=== PATIENT | female | born 1990 | race Caucasian/White ===

== ENCOUNTER 2020-03-30 05:50 | Inpatient (IN) | payer MEDICAID, SELFPAY ==
[2020-03-30] VITALS (139 sets, daily range): BP systolic 91–125; BP diastolic 53–90; PULSE 86–115; RESP 16; TEMP 36.6–37.4; O2SAT 99–100; BMI 25.6
[2020-03-30 06:40] LABS: Basophils Absolute Auto 0.1 K/mm3 (0.0-0.1); Basophils Percent Auto 0.5 % (0.2-1.2); Eosinophils Absolute Auto 0.2 K/mm3 (0-0.3); Eosinophils Percent Auto 1.8 % (0-4.4); Hematocrit 26.3 % (37.0-47.0); Hemoglobin 8.2 g/dL (12.0-15.0); Immature Granulocyte Absolute 0.05 K/mm3 (0.00-0.031); Immature Granulocyte Percent A 0.5 % (0-0.5); Lymphocytes Absolute Auto 1.93 K/mm3 (0.9-3.2); Lymphocytes Percent Auto 20.8 % (18.3-44.2); Mean Corpuscular HGB Conc 31.2 g/dl (32-36); Mean Corpuscular Hemoglobin 24.9 pg (26-34); Mean Corpuscular Volume 79.9 fl (80-100); Mean Platelet Volume 11.8 fl (7.4-10.4); Monocytes Absolute Auto 0.7 K/mm3 (0.1-0.6); Monocytes Percent Auto 7.8 % (2.6-8.5); Neutrophils Absolute Auto 6.4 K/mm3 (1.3-6.7); Neutrophils Percent Auto 68.6 % (45.5-73.1); Nucleated Red Blood Cells Perc 0.2 % (0.0-0.2); Platelet Count Result 294 k/mm3 (150-375); Red Blood Count 3.29 M/mm3 (4.2-5.4); Red Cell Distribution Width 15.2 % (11.5-14.5); White Blood Count 9.3 K/mm3 (4.5-10.0)
[2020-03-30] MEDS: OXYTOCIN 30 UNITS/NS 500 ML 30 UNITS/500 ML BAG 125 UNITS IV CONT ×2 (07:02→20:30)
[2020-03-30] MEDS: LACTATED RINGERS 1,000 ML 125 ML IV CONT ×2 (07:03→11:13)
--- NOTE | 2020-03-30 07:18 | LDADM ---
This patient, Jacky Hwang, was admitted to Labor/Delivery/Recovery 107 on 03/30/20 at 05:50. Plans for labor, pain management and were discussed with patient. Patient/family oriented to hospital policies and general routines including ID bracelet, bed and alarms, visiting hours, pain management, procedures, bathroom and other care routines, personal items, smoking policy, room service/diet and guest tray routines, infant security routines, and visiting hours. Patient/Family are encouraged to report perceived risks to care and to ask questions if they do not understand what they are told or what they should do. See OBIX for further documentation.
--- NOTE | 2020-03-30 07:37 | WPDHPUPDATE1 ---
History and Physical Update Update Date/Time: 03/30/20 07:37 This patient is a 29-year-old multiparous female at 39 weeks gestation presents for elective induction of labor. Artificial rupture of membranes was performed. She is 2 cm, 50%, -2 station the -clear fluid was observed. To continue expectant management. History and Physical has been reviewed, including an updated exam of the patient. There are NO changes in the patient's condition. Risks, benefits, and alternatives have been discussed and questions answered. Patient agrees to proceed with procedure.
--- NOTE | 2020-03-30 08:06 | P.PNAN_ITS ---
Anes - Eval Pre Procedure Procedure: labor epidural Date/Time: 03/30/20 08:06 Preop Diagnosis: labor pain Pre Op Diagnosis: IOL Patient Data Age: 29 Gender: F Height: 5 ft 6 in Weight: 72 kg Last Vital Signs Pulse 98 03/30/20 08:00 BP 110/66 03/30/20 08:00 Allergies Allergy/AdvReac Type Severity Reaction Status Date / Time No Known Allergies Allergy Unverified 11/15/17 21:05 Home Medications Medication Instructions Recorded Confirmed Type PNV no.[id number] 2 tablet PO DAILY 03/05/20 03/30/20 History [ Gummies] Laboratory Tests 03/30/20 03/30/20 03/30/20 06:28 06:28 06:28 WBC 9.3 K/mm3 K/mm3 (4.5-10.0) RBC 3.29 M/mm3 L M/mm3 (4.2-5.4) Hgb 8.2 g/dL L g/dL (12.0-15.0) Hct 26.3 % L % (37.0-47.0) MCV 79.9 fl L fl (80-100) MCH 24.9 pg L pg (26-34) MCHC 31.2 g/dl L g/dl (32-36) RDW 15.2 % H % (11.5-14.5) Plt Count 294 k/mm3 k/mm3 (150-375) MPV 11.8 fl H fl (7.4-10.4) Immature Gran % (Auto) 0.5 % % (0-0.5) Neut % (Auto) 68.6 % % (45.5-73.1) Lymph % (Auto) 20.8 % % (18.3-44.2) Bourbon % (Auto) 7.8 % % (2.6-8.5) Eos % (Auto) 1.8 % % (0-4.4) Baso % (Auto) 0.5 % % (0.2-1.2) Lymph # (Auto) 1.93 K/mm3 K/mm3 (0.9-3.2) Bourbon # (Auto) 0.7 K/mm3 H K/mm3 (0.1-0.6) Eos # (Auto) 0.2 K/mm3 K/mm3 (0-0.3) Baso # (Auto) 0.1 K/mm3 K/mm3 (0.0-0.1) Abs Immat Gran (auto) 0.05 K/mm3 H K/mm3 (0.00-0.031) Absolute Neuts (auto) 6.4 K/mm3 K/mm3 (1.3-6.7) Absolute Nucleated RBC 0.0 K/mm3 K/mm3 (0.0-0.012) Nucleated RBC % 0.2 % % (0.0-0.2) RPR Pending Blood Type O Positive Antibody Screen Negative Patient hx anesthesia problems: none Family hx anesthesia problems: none [facility] Family History Family History (Updated 03/05/20 @ 15:54 by Tracy Small RN) Other Diabetes mellitus Social History Social History Smoking status: Never smoker Substance use: never Spiritual care concerns: No Exam Day of Procedure 03/30/20 08:06
--- NOTE | 2020-03-30 20:08 | PM.OBPRVD ---
OB - Delivery Note Procedure Intrapartal events: Ineffective Pushing Induction method: AROM and per pitocin protocol Delivery monitor: external FHT and external uterine Route of delivery: vacuum extraction (CARLOS A, +4 station, kiwi vacuum, estimated weight 3200 g,- ineffective pushing, 1 pop-off, 2 pulls over 2 contractions, total time less than 2 minutes.) Indication for instrumentation: maternal exhaustion Laceration description: Perineal - 2nd Degree Delivery repair: vicryl Estimated blood loss (mL): 300 Anesthesia type: Epidural Disposition: floor Complications: None Baby Date of : 03/30/20 Time of : 19:48 Weeks of gestation at delivery: 39 gender: Male Weight (pounds): 7 Weight (ounces): 8 presentation: vertex position: Left Occiput Anterior Placenta delivery description: Spontaneous score one minute: 7 score five minutes: 9
[2020-03-30] MEDS: WITCH HAZEL 40 PADS 1 PAD TOPICAL (22:19)
[2020-03-30] MEDS: BENZOCAINE 20% AER SPR (*SP) 56 GM CAN 1 SPRAY TOPICAL (22:19)
--- NOTE | 2020-03-30 22:34 | OBPPTRN ---
Patient transferred to post room #281 via wheelchair. Support person present. Oriented to unit, room, information board, rooming in, admission packet and security measures. Patient verbalizes understanding. with patient.
[2020-03-30] MEDS: IBUPROFEN 600 MG TABLET PO (23:43)
[2020-03-31 06:00] LABS: Hematocrit 22.6 % (37.0-47.0); Hemoglobin 7.1 g/dL (12.0-15.0)
--- NOTE | 2020-03-31 07:26 | PM.OBPNVD ---
OB - PN: Subj Subjective Date/time seen: 03/31/20 07:26 Patient comments: no complaints baby status: doing well OB - PN: Obj Data Labs CBC & Chem 7: 03/31/20 05:52 Labs: Laboratory Results - last 24 hr 03/30/20 03/31/20 06:28 05:52 Hgb 7.1 L Hct 22.6 L Blood Type O Positive Antibody Screen Negative OB - PN A/P Plan day: 1 Plan: routine care Time Spent With Patient Time: Total time spent is greater than 50% in coordination of care (as documented) at patient's floor/unit and/or counseling patient: Exam Const: General: comfortable Resp: Effort & Inspection: normal respiratory effort Psych: Appearance: grossly normal Affect: normal affect Attitude: cooperative Judgement: Good judgement present (Psych)
--- NOTE | 2020-03-31 07:47 | WPDANLDPN2 ---
Anes-Prog Note L&D Date/Time: 03/31/20 07:47 Comfortable throughout: labor and delivery Neuraxial method: epidural Epidural/Spinal procedure site: clean & non-tender Neuro status: Neuro function grossly intact. Cardiovascular status: normal Respiratory status: normal Airway patency: baseline Mental status: baseline Post-Op hydration status: normal Vital Signs: Last Vital Signs Temp 36.9 C 03/30/20 22:34 Pulse 94 03/30/20 22:34 Resp 16 03/30/20 22:34 BP 107/65 03/30/20 22:34 Pulse Ox 100 03/30/20 22:34 I/O: Intake & Output 03/30/20 03/30/20 03/31/20 15:59 23:59 07:59 Intake Total 1500 900 Output Total 1150 Balance 1500 -250 Post-procedural complaints: none Patient feedback: Patient satisfied with anesthetic care.
[2020-03-31 08:25] VITALS: BP 93/58; PULSE 86; RESP 16; TEMP 37.1; O2SAT 100
[2020-03-31 09:04] LABS: Rapid Plasma Reagin Non-Reactive (NonReactive)
--- NOTE | 2020-03-31 10:00 | PC.NURSE ---
Consult with pt., discussed pumping due to in Level II. Mother states she does not want to pump and will switch to bottle feeding.
[2020-03-31] MEDS: IBUPROFEN 600 MG TABLET PO ×2 (10:20→22:43)
[2020-03-31] MEDS: MULTIVIT/MIN/PREN/FOL AC/IRON TABLET 1 TAB PO (10:21)
[2020-03-31] MEDS: DOCUSATE SODIUM 100 MG CAPSULE PO (10:21)
[2020-03-31] MEDS: POLYSACCHARIDE IRON COMPLEX 150 MG CAPSULE PO ×2 (10:21→17:16)
[2020-03-31 19:10] VITALS: BP 96/59; PULSE 87; RESP 12; TEMP 36.9
--- NOTE | 2020-04-01 07:20 | WPDANLDPN2 ---
Anes-Prog Note L&D Date/Time: 04/01/20 07:20 Comfortable throughout: labor and delivery Neuraxial method: epidural Epidural/Spinal procedure site: clean & non-tender Neuro status: Neuro function grossly intact. Cardiovascular status: normal Respiratory status: normal Airway patency: baseline Mental status: baseline Post-Op hydration status: normal Vital Signs: Last Vital Signs Temp 36.9 C 03/31/20 19:10 Pulse 87 03/31/20 19:10 Resp 12 03/31/20 19:10 BP 96/59 L 03/31/20 19:10 Pulse Ox 100 03/31/20 08:25 Post-procedural complaints: none Patient feedback: Patient satisfied with anesthetic care.
--- NOTE | 2020-04-01 07:25 | PM.OBPNVD ---
OB - PN: Subj Subjective Date/time seen: 04/01/20 07:25 Patient comments: no complaints OB - PN: Obj Data Labs CBC & Chem 7: 03/31/20 05:52 Labs: Laboratory Results - last 24 hr 03/30/20 06:28 RPR Non-reactive OB - PN A/P Plan day: 2 Plan: discharge home Time Spent With Patient Time: Total time spent is greater than 50% in coordination of care (as documented) at patient's floor/unit and/or counseling patient: Review of Systems Review of Systems: All systems reviewed & are unremarkable except as noted in HPI and below Exam Const: General: comfortable Psych: Appearance: grossly normal Affect: normal affect Attitude: cooperative Judgement: Good judgement present (Psych)
[2020-04-01 08:00] VITALS: BP 104/69; PULSE 81; RESP 18; TEMP 36.8; O2SAT 100
[2020-04-01] MEDS: DOCUSATE SODIUM 100 MG CAPSULE PO (09:09)
[2020-04-01] MEDS: POLYSACCHARIDE IRON COMPLEX 150 MG CAPSULE PO (09:09)
[2020-04-03 11:04] VITALS: BP 104/67; PULSE 76; RESP 20; TEMP 36.8; O2SAT 100
--- NOTE | 2020-04-20 08:07 | P.DS_ITS ---
DS: Admitting Diagnosis Admitting Diagnosis Admitting Diagnosis: IOL DS: Discharge Diagnosis Discharge Diagnosis (1) Term : Code(s): Z34.90 - Encounter for supervision of normal , unspecified, unspecified trimester Status: Acute OB - DS: Summary OB Procedures : None OB Procedures Intrapartum: Spontaneous Vag Delivery OB Procedures: : None Peripartum Data Delivery Method: Natural Vaginal complications: none Status at Discharge Functional status at discharge: independent ambulation Time Spent with Patient Time attestation: Total time spent providing and/or coordinating discharge services: Discharge Plan Discharge Attending physician on discharge: Akil Young Consulting providers: Bridget Quiles Discharging Clinician: Bridget Quiles Patient Disposition: Home, Self-Care Activity: pelvic rest Diet: regular Discharge Instructions: Education: Mom and Baby Guide Given to: Patient Follow-Up: Call your delivering provider's office for an appointment to be seen in: 4 weeks Mom should come to the [facility] for the follow-up appointment. Appointment Date/Time: Monday04/03/2020 at 11:00 am Call [phone] if you are unable to keep your appointment time. BREAST CARE: * Wear a snug supportive bra. * For engorgement discomfort: Bottle Feeding: * May apply ice packs EPISIOTOMY/PERINEAL CARE: * Until bleeding stops, use your edwin bottle after urinating * Change your pad frequently throughout the day * You may take sitz baths several times a day (fill your bathtub with warm water and soak for 20 minutes.) Do NOT bathe in the water * No tub baths until seen by your physician - You may shower ACTIVITY: * Rest as much as possible. * Do not exercise or lift anything heavier than your baby (such as laundry or other children.) * Avoid stairs or driving as much as possible. * Do not put anything into the vagina. No douching, tampons, or sexual activity until seen by physician. NOTIFY PHYSICIAN IF YOU HAVE ANY QUESTIONS OR IF ANY OF THE FOLLOWING SYMPTOMS OCCUR: * If your episiotomy or incision becomes red, swollen, or more painful than what you have experienced in the hospital. * If your vaginal bleeding becomes foul smelling. * If your vaginal bleeding becomes more heavy than a period or if your bleeding changes from pink to bright red. However, you may pass an occasional walnut- sized clot once or twice for the first week . * If you experience a sharp, shooting pain in you calves. * If you discover a hard, reddened area on your breast or if you experience flu- like symptoms. DIET: * Eat regular, well-balanced meals. * Drink plenty of fluids daily. If , drink to thirst. Follow-up/Referrals: Akil Young MD [Physician] - 4 Weeks Discharge Medications: Continued Gummies 400 mcg-35 mg- 25 mg-5 mg Tablet,Chewable 2 tablet PO DAILY RF: 0 Date of admission: 03/30/20 05:50 Primary Care Provider: PHYSICIAN,COLLECTION SUPERVISOR Admitting Provider: Akil Young Discharge Date/Time: 04/01/20 11:00 Attending physician on admission: Akil Young
== END 2020-04-01 11:00 | disposition home or self-care (01) | DRG 560 ==
LOC: ANHLDR 06:01 → ANHOB2 22:36
PROVIDERS: Admitting Provider Obstetrics & Gynecology; Visit Provider Obstetrics & Gynecology
DX: O69.81X0 Labor and delivery complicated by cord around neck, without compression, not applicable or unspecified (principal); Z37.0 Single live birth; Z3A.39 39 weeks gestation of pregnancy; M08.00 Unspecified juvenile rheumatoid arthritis of unspecified site; O99.89 Other specified diseases and conditions complicating pregnancy, childbirth and the puerperium; O75.81 Maternal exhaustion complicating labor and delivery; O70.1 Second degree perineal laceration during delivery
CPT/HCPCS: 36415; 85014; 85018; 85025; 86592; 86850; 86900; 86901; A9270; J2590; J2795; J3010; J7120

== ENCOUNTER 2024-09-03 07:59 | Emergency (ER) | payer OTHER, SELFPAY ==
--- OUTSIDE RECORDS SUMMARY | 2024-09-03 08:03 | XMS_ITS | Encounter Summary ---
Author Organization [facility] Address [address] 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
--- OUTSIDE RECORDS SUMMARY | 2024-09-03 08:03 | XMS_ITS | Encounter Summary ---
Author Organization [facility] Address [address] [place]: Epic Prelude ADT [place] [address] Care Team Providers Care Plastic Press Molder Name Role Phone Unavailable Primary Care Provider Unavailabl e Encounter Details Date Type Department Care Team (Late st Contact Info) Description 05/17/1996 Outpatient Historical Conversion, History Social History Tobacco Use Types Packs/Day Years Used Date Smoking Tobacco: Never Assessed Comments Unknown Sex and Gender Information Value Date Recorded Sex Assigned at Not on file Legal Sex Female 3:30 AM BRAKE REPAIRER Gender Identity Not on file Sexual Orientation Not on file documented as of this encounter Plan of Treatment Not on file documented as of this encounter Visit Diagnoses Not on filedocumented in this encounter
--- OUTSIDE RECORDS SUMMARY | 2024-09-03 08:03 | XMS_ITS | Encounter Summary ---
Author Organization [facility] Address [address] [place]: Epic Prelude ADT [place] [address] Care Team Providers Care Marketing Services Coordinator Name Role Phone Unavailable Primary Care Provider Unavailabl e Encounter Details Date Type Department Care Team (Late st Contact Info) Description 09/06/1996 Outpatient Historical Conversion, History Social History Tobacco Use Types Packs/Day Years Used Date Smoking Tobacco: Never Assessed Comments Unknown Sex and Gender Information Value Date Recorded Sex Assigned at Not on file Legal Sex Female 3:30 AM EMBROIDERY WORKER Gender Identity Not on file Sexual Orientation Not on file documented as of this encounter Plan of Treatment Not on file documented as of this encounter Visit Diagnoses Not on filedocumented in this encounter
--- OUTSIDE RECORDS SUMMARY | 2024-09-03 08:03 | XMS_ITS | Encounter Summary ---
Author Organization [facility] Address [address] [place]: Epic Prelude ADT [place] [address] Care Team Providers Care Acupuncture Physician Name Role Phone Unavailable Primary Care Provider Unavailabl e Encounter Details Date Type Department Care Team (Late st Contact Info) Description 10/03/1997 Outpatient Historical Conversion, History Social History Tobacco Use Types Packs/Day Years Used Date Smoking Tobacco: Never Assessed Comments Unknown Sex and Gender Information Value Date Recorded Sex Assigned at Not on file Legal Sex Female 3:30 AM SUPERVISOR SHAVING AND SPLITTING Gender Identity Not on file Sexual Orientation Not on file documented as of this encounter Plan of Treatment Not on file documented as of this encounter Visit Diagnoses Not on filedocumented in this encounter
--- OUTSIDE RECORDS SUMMARY | 2024-09-03 08:03 | XMS_ITS | Encounter Summary ---
Author Organization [facility] Address [address] Hong: Epic Prelude ADT [place] [address] Care Team Providers Care Prepared Foods Production Team Member Name Role Phone Unavailable Primary Care Provider Unavailabl e Encounter Details Date Type Department Care Team (Late st Contact Info) Description 11/15/1996 Outpatient Historical Conversion, History Social History Tobacco Use Types Packs/Day Years Used Date Smoking Tobacco: Never Assessed Comments Unknown Sex and Gender Information Value Date Recorded Sex Assigned at Not on file Legal Sex Female 3:30 AM DISTRICT PLANT SUPERVISOR Gender Identity Not on file Sexual Orientation Not on file documented as of this encounter Plan of Treatment Not on file documented as of this encounter Visit Diagnoses Not on filedocumented in this encounter
--- OUTSIDE RECORDS SUMMARY | 2024-09-03 08:03 | XMS_ITS | Encounter Summary ---
Author Organization [facility] Address [address] 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
--- OUTSIDE RECORDS SUMMARY | 2024-09-03 08:03 | XMS_ITS | Encounter Summary ---
Author Organization [facility] Address [address] Hong: Epic Prelude ADT [place] [address] Care Team Providers Care Clinical Field Specialist Name Role Phone Unavailable Primary Care Provider Unavailabl e Encounter Details Date Type Department Care Team (Late st Contact Info) Description 03/17/1995 Outpatient Historical Conversion, History Social History Tobacco Use Types Packs/Day Years Used Date Smoking Tobacco: Never Assessed Comments Unknown Sex and Gender Information Value Date Recorded Sex Assigned at Not on file Legal Sex Female 3:30 AM ELEVATOR REPAIRER APPRENTICE Gender Identity Not on file Sexual Orientation Not on file documented as of this encounter Plan of Treatment Not on file documented as of this encounter Visit Diagnoses Not on filedocumented in this encounter
--- OUTSIDE RECORDS SUMMARY | 2024-09-03 08:03 | XMS_ITS | Encounter Summary ---
Author Organization [facility] Address [address] [place]: Epic Prelude ADT [place] [address] Care Team Providers Care Roof Truss Detailer Name Role Phone Unavailable Primary Care Provider Unavailabl e Encounter Details Date Type Department Care Team (Late st Contact Info) Description 02/03/1997 Outpatient Historical Conversion, History Social History Tobacco Use Types Packs/Day Years Used Date Smoking Tobacco: Never Assessed Comments Unknown Sex and Gender Information Value Date Recorded Sex Assigned at Not on file Legal Sex Female 3:30 AM GEOTECHNICAL INTERN Gender Identity Not on file Sexual Orientation Not on file documented as of this encounter Plan of Treatment Not on file documented as of this encounter Visit Diagnoses Not on filedocumented in this encounter
--- OUTSIDE RECORDS SUMMARY | 2024-09-03 08:03 | XMS_ITS | Encounter Summary ---
Author Organization [facility] Address [address] Hong: Epic Prelude ADT [place] [address] Care Team Providers Care Clinical Law Professor Name Role Phone Unavailable Primary Care Provider Unavailabl e Encounter Details Date Type Department Care Team (Late st Contact Info) Description 10/04/1996 Outpatient Historical Conversion, History Social History Tobacco Use Types Packs/Day Years Used Date Smoking Tobacco: Never Assessed Comments Unknown Sex and Gender Information Value Date Recorded Sex Assigned at Not on file Legal Sex Female 3:30 AM DAIRY EQUIPMENT REPAIRER Gender Identity Not on file Sexual Orientation Not on file documented as of this encounter Plan of Treatment Not on file documented as of this encounter Visit Diagnoses Not on filedocumented in this encounter
--- OUTSIDE RECORDS SUMMARY | 2024-09-03 08:03 | XMS_ITS | Encounter Summary ---
Author Organization [facility] Address [address] [place]: Epic Prelude ADT [place] [address] Care Team Providers Care Otolaryngology Teacher Name Role Phone Unavailable Primary Care Provider Unavailabl e Encounter Details Date Type Department Care Team (Late st Contact Info) Description 06/14/1996 Outpatient Historical Conversion, History Social History Tobacco Use Types Packs/Day Years Used Date Smoking Tobacco: Never Assessed Comments Unknown Sex and Gender Information Value Date Recorded Sex Assigned at Not on file Legal Sex Female 3:30 AM GAS GOLF CART REPAIRER Gender Identity Not on file Sexual Orientation Not on file documented as of this encounter Plan of Treatment Not on file documented as of this encounter Visit Diagnoses Not on filedocumented in this encounter
--- OUTSIDE RECORDS SUMMARY | 2024-09-03 08:03 | XMS_ITS | Encounter Summary ---
Author Organization [facility] Address [address] [place]: Epic Prelude ADT [place] [address] Care Team Providers Care Inventory Audit Clerk Name Role Phone Unavailable Primary Care Provider Unavailabl e Encounter Details Date Type Department Care Team (Late st Contact Info) Description 09/06/1996 Outpatient Historical Conversion, History Social History Tobacco Use Types Packs/Day Years Used Date Smoking Tobacco: Never Assessed Comments Unknown Sex and Gender Information Value Date Recorded Sex Assigned at Not on file Legal Sex Female 3:30 AM COMMERCIAL LOAN REVIEWER Gender Identity Not on file Sexual Orientation Not on file documented as of this encounter Plan of Treatment Not on file documented as of this encounter Visit Diagnoses Not on filedocumented in this encounter
--- OUTSIDE RECORDS SUMMARY | 2024-09-03 08:03 | XMS_ITS | Encounter Summary ---
Author Organization [employer] Address [address] [place] [address] Care Team Providers Care Sound Designer Name Role Phone Unavailable Primary Care Provider Unavailabl e Encounter Details Date Type Department Care Team (Late st Contact Info) Description 06/04/1999 Outpatient Historical [facility],NON-PATIENT Social History Tobacco Use Types Packs/Day Years Used Date Smoking Tobacco: Never Assessed Comments Unknown Sex and Gender Information Value Date Recorded Sex Assigned at Not on file Legal Sex Female 3:30 AM DRIVER'S EDUCATION INSTRUCTOR Gender Identity Not on file Sexual Orientation Not on file documented as of this encounter Plan of Treatment Not on file documented as of this encounter Visit Diagnoses Not on filedocumented in this encounter
--- OUTSIDE RECORDS SUMMARY | 2024-09-03 08:04 | XMS_ITS | Encounter Summary ---
Author Organization [facility] Address [address] [place]: Epic Prelude ADT [place] [address] Care Team Providers Care Building Equipment Operator Name Role Phone Unavailable Primary Care Provider Unavailabl e Encounter Details Date Type Department Care Team (Late st Contact Info) Description 09/02/1994 Outpatient Historical Conversion, History Social History Tobacco Use Types Packs/Day Years Used Date Smoking Tobacco: Never Assessed Comments Unknown Sex and Gender Information Value Date Recorded Sex Assigned at Not on file Legal Sex Female 3:30 AM STITCHING MACHINE SETTER Gender Identity Not on file Sexual Orientation Not on file documented as of this encounter Plan of Treatment Not on file documented as of this encounter Visit Diagnoses Not on filedocumented in this encounter
--- OUTSIDE RECORDS SUMMARY | 2024-09-03 08:04 | XMS_ITS | Patient Health Summary ---
Author Organization [facility] Address [address] [place] [address] Care Team Providers Care Plating Foreman Name Role Phone Lady Avila MD Primary Care Provider [phone]- [phone] Lady Avila MD Unavailable [phone] Note from [facility],non-owned Affiliates and Associated Physician Practices is amultiple site organization consisting of ambulatory clinics and hospital sitesin [place] and [place]. This disclosure is being madepursuant to the Care Everywhere program and may not contain all information available regarding this patient. Last updated 18.[facility] Allergies No known active allergies Medications * Be aware that medications may not be up to date on this document. Alwaysverify current medications with the patient. * naproxen sodium (Aleve) 220 MG tablet Take 1 (one) tablet by mouth 2 times daily * vitamin D, ergocalciferol, (Drisdol) 1.25 MG (75368 UT) capsule(Started 03/08/2024) Take 1 (one) capsule by mouth every 7 days * ferrous sulfate 325 (65 FE) MG tablet(Started 03/13/2024) Take 1 (one) tablet by mouth 2 times daily with morning and evening meal for 30 days, THEN 1 (one) tablet daily with breakfast for 60 days. Active Problems Problem Noted Date Diagnosed Date Secondary osteoarthritis of multiple sites (left TMJ, wrists, hands, knees) 03/21/2024 H/O juvenile rheumatoid arthritis 07/16/2018 Polyarthralgia 07/16/2018 Abnormal auditory perception 05/22/2018 Vitamin D deficiency disease 06/02/2013 Resolved Problems Problem Noted Date Diagnosed Date Resolved Date Supervision of high-risk pre gnancy of young multigravida 11/18/2019 03/21/2024 Inflammatory arthritis 07/16/201803/21 JRA (juvenile rheumatoid arthritis) 05/20/2018 03/21/2024 test negative 07/26/201503/01 Leukocytosis 03/27/2015 03/21/2024 Microscopic hematuria 03/27/20152023 Urinary tract infectious disease 03/27/2015 03/21/2024 Delivery normal 01/21/2015 03/21/2024 Single live 01/21/2015 03/21/2024 Primigravida 01/13/2015 03/21/2024 Intrauterine growth restrict ion (IUGR) affecting care of mother 12/24/2014 03/21/2024 Immunizations * FLU VACCINE TRI IIV3 SPLIT PF IM (FLUVIRIN)(Given 05/31/2013) * TDAP, HISTORIC VACCINE(Given 01/23/2015) Social History Tobacco Use Types Packs/Day Years Used Date Smoking Tobacco: Former Cigarettes 0.3 6 Smokeless Tobacco: Never Alcohol Use Standard Drinks/Week Comments Yes 0 (1 standard drink = 0.6 oz pur e alcohol) PHQ-2 Answer Date Recorded Patient Health Questionnaire-2 Score 0 03/06/2024 Sex and Gender Information Value Date Recorded Sex Assigned at Female 02/09/2024 9:51 AM CDT Gender Identity Female 02/09/2024 9:51 AM CDT Sexual Orientation Not on file Last Filed Vital Signs Vital Sign Reading Time Taken Comments Blood Pressure 120/74 03/21/2024 8:06 AM CDT Pulse 104 03/21/2024 8:06 AM CDT Temperature - - Respiratory Rate - - Oxygen Saturation 98% 03/21/2024 8:06 AM CDT Inhaled Oxygen Concentration - - Weight 61.2 kg (135 lb) 03/21/2024 8:06 AM CDT Height 165.1 cm (5' 5 ) 03/21/2024 8:06 AM CDT Body Mass Index 22.47 03/21/2024 8:06 AM CDT Procedures * VITAMIN B12 FOLATE PANEL(Performed 03/12/2024) Performed for Anemia, unspecified type * IRON + TIBC + FERRITIN(Performed 03/12/2024) Performed for Anemia, unspecified type * VITAMIN D 25-HYDROXY(Performed 03/06/2024) Performed for Vitamin D deficiency * COMPREHENSIVE METABOLIC PANEL(Performed 03/06/2024) Performed for Inflammatory arthritis * CBC W AUTO DIFFERENTIAL(Performed 03/06/2024) Performed for Inflammatory arthritis Results * (ABNORMAL) IRON + TIBC + FERRITIN (03/12/2024 4:10 PM CDT) TIBC 348 250 - 450 ug/dL [facility] ACCOUNT BILL UIBC 316 131 - 425 ug/dL [facility] ACCOUNT BILL Iron 32 27 - 159 ug/dL [facility] ACCOUNT BILL Iron Saturation 9(LL) 15 - 55 % [facility] ACCOUNT BILL Ferritin 6(L) 15 - 150 ng/mL [facility] ACCOUNT BILL Blood BLOOD SPECIMEN / Unknown 03/12/2024 4:10 PM CDT 03/12/2024 Narrative Resulting Agency Comment Lab Testing performed at: [facility] ??[facility] [phone] Lady Avila MD LAB - CHEMISTRY OR DERABLES [facility] ACCOUNT BILL [address] [place] [address] * VITAMIN B12 FOLATE PANEL (03/12/2024 4:10 PM CDT) Vitamin B12 567 232 - 1,245 pg/mL [facility] ACCOUNT BILL Folate 3.1 >3.0 ng/mL [facility] ACCOUNT BILL Comment: A serum folate concentration of less than 3.1 ng/mL is considered to represent clinical deficiency. Blood BLOOD SPECIMEN / Unknown 03/12/2024 4:10 PM CDT 03/12/2024 Narrative Resulting Agency Comment Lab Testing performed at: [facility] [address] ??[facility] [phone] Lady Avila MD LAB - CHEMISTRY OR DERABLES Performing Organization Address City/[facility]/ZIP Co de Phone Number [facility] ACCOUNT BILL [address] [place] [address] * (ABNORMAL) VITAMIN D 25-HYDROXY (03/06/2024 9:42 AM CDT) Vitamin D, 25 Hydroxy 20.2(L) 30.0 - 100.0 ng/mL [facility] ACCOUNT BILL Comment: Vitamin D deficiency has been defined by the [place] of [employer] and an Endocrine Society practice guideline as a level of serum 25-OH vitamin D less than 20 ng/mL (1,2). The Endocrine Society went on to further define vitamin D insufficiency as a level between 21 and 29 ng/mL (2). 1. IOM ([place] of [employer]). 2010. Dietary reference ?? intakes for calcium and D. Tran [place]: The ?? National AcademSAVORTEX Press. 2. Danuta MF, Bacilio CHIU, Fidel BAPTISTE, et al. ?? Evaluation, treatment, and prevention of vitamin D ?? deficiency: an Endocrine Society clinical practice ?? guideline. JCEM. 2010; 96(7):1911-30. Blood BLOOD SPECIMEN / Unknown 03/06/2024 9:42 AM CDT 03/06/2024 Narrative Resulting Agency Comment Lab Testing performed at: [facility] [address] ??[facility] [phone] Lady Avila MD LAB - CHEMISTRY OR DERABLES [facility] ACCOUNT BILL [address] [place] [address] * (ABNORMAL) CBC WITH DIFFERENTIAL (03/06/2024 9:42 AM CDT) WBC 5.5 3.4 - 10.8 x10E3/uL [facility] ACCOUNT BILL RBC 3.94 3.77 - 5.28 x10E6/uL [facility] ACCOUNT BILL Hemoglobin 10.5(L) 11.1 - 15.9 g/dL [facility] ACCOUNT BILL Hematocrit 33.3(L) 34.0 - 46.6 % [facility] ACCOUNT BILL MCV 85 79 - 97 fL [facility] ACCOUNT BILL MCH 26.6 26.6 - 33.0 pg [facility] ACCOUNT BILL MCHC 31.5 31.5 - 35.7 g/dL [facility] ACCOUNT BILL RDW 15.0 11.7 - 15.4 % [facility] ACCOUNT BILL Platelet Count 271 150 - 450 x10E3/uL [facility] ACCOUNT BILL Granulocytes % 58 Not Estab. % [facility] ACCOUNT BILL Lymphocytes % 33 Not Estab. % [facility] ACCOUNT BILL Monocytes % 6 Not Estab. % [facility] ACCOUNT BILL Eosinophils % 2 Not Estab. % [facility] ACCOUNT BILL Basophils % 1 Not Estab. % [facility] ACCOUNT BILL Immature Cells NOT AVAILABLE [facility] ACCOUNT BILL Comment:Result cannot be obt ained for this observation. Granulocytes Absolute 3.1 1.4 - 7.0 x10E3/uL [facility] ACCOUNT BILL Lymphocytes Absolute 1.8 0.7 - 3.1 x10E3/uL [facility] ACCOUNT BILL Monocytes Absolute 0.3 0.1 - 0.9 x10E3/uL [facility] ACCOUNT BILL Eosinophils Absolute 0.1 0.0 - 0.4 x10E3/uL [facility] ACCOUNT BILL Basophils Absolute 0.1 0.0 - 0.2 x10E3/uL [facility] ACCOUNT BILL Immature Granulocytes 0 Not Estab. % [facility] ACCOUNT BILL Immature Granulocytes Absolute 0.0 0.0 - 0.1 x10E3/uL [facility] ACCOUNT BILL nRBC NOT AVAILABLE [facility] ACCOUNT BILL Comment:Result cannot be obt ained for this observation. Comment Hematology NOT AVAILABLE [facility] ACCOUNT BILL Comment:Result cannot be obt ained for this observation. Blood BLOOD SPECIMEN / Unknown 03/06/2024 9:42 AM CDT 03/06/2024 Narrative Resulting Agency Comment Lab Testing performed at: [facility] ??[facility] [phone] Lady Avila MD LAB - HEMATOLOGY O RDERABLES [facility] ACCOUNT BILL [address] [place] [address] * COMPREHENSIVE METABOLIC PANEL (03/06/2024 9:42 AM CDT) Glucose 85 70 - 99 mg/dL [facility] ACCOUNT BILL BUN 7 6 - 20 mg/dL [facility] ACCOUNT BILL Creatinine 0.61 0.57 - 1.00 mg/dL [facility] ACCOUNT BILL eGFR by CKD-EPI 122 >59 mL/min/1.7 3 [facility] ACCOUNT BILL BUN/Creatinine Ratio 11 9 - 23 [facility] ACCOUNT BILL Sodium 138 134 - 144 mmol/L [facility] ACCOUNT BILL Potassium 4.0 3.5 - 5.2 mmol/L [facility] ACCOUNT BILL Chloride 102 96 - 106 mmol/L [facility] ACCOUNT BILL CO2 24 20 - 29 mmol/L [facility] ACCOUNT BILL Calcium 9.0 8.7 - 10.2 mg/dL [facility] ACCOUNT BILL Protein Total 7.4 6.0 - 8.5 g/dL [facility] ACCOUNT BILL Albumin 4.4 3.9 - 4.9 g/dL [facility] ACCOUNT BILL Globulin Total 3.0 1.5 - 4.5 g/dL [facility] ACCOUNT BILL Bilirubin Total 0.4 0.0 - 1.2 mg/dL [facility] ACCOUNT BILL Alkaline Phosphatase 61 44 - 121 IU/L [facility] ACCOUNT BILL AST 22 0 - 40 IU/L [facility] ACCOUNT BILL ALT 13 0 - 32 IU/L [facility] ACCOUNT BILL Blood BLOOD SPECIMEN / Unknown 03/06/2024 9:42 AM CDT 03/06/2024 Narrative Resulting Agency Comment Lab Testing performed at: [facility] [address] ??[facility] [phone] Lady Avila MD LAB - CHEMISTRY OR DERABLES [facility] ACCOUNT BILL [address] [place] [address] Care Teams Plating Foreman Relationship Specialty Start Date End Date Lady Avila MD [address] [address] PCP - General Family Medicine 03/06/24 Lady Avila MD [address] [phone] PCP - Attributed-[facility] 03/31/24
--- OUTSIDE RECORDS SUMMARY | 2024-09-03 08:04 | XMS_ITS | Encounter Summary ---
[facility] Organization [facility] Address [address] 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
--- OUTSIDE RECORDS SUMMARY | 2024-09-03 08:04 | XMS_ITS | Encounter Summary ---
Author Organization [facility] Address 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
--- OUTSIDE RECORDS SUMMARY | 2024-09-03 08:04 | XMS_ITS | Data Portability ---
Author Organization [facility] [place] Address [address] [place] [address] Assessment Encounter Date Assessment Date Assessment LastModified by Organization Details LastModified Time 02/28/2020 02/28/2020 Patient is ___weeks . Discussed plan. Not available 02/28/2020 11:37:50 03/09/2020 03/09/2020 Patient is ___weeks . Discussed plan. Not available 03/09/2020 17:16:38 03/20/2020 03/20/2020 Patient is ___weeks . Discussed plan. Not available 03/20/2020 12:57:13 03/25/2020 03/25/2020 Patient is ___weeks . Discussed plan. Not available 03/25/2020 16:13:54 Plan of Treatment Reminders Order Date Submit Date Provider Last Modified By Organization Details Last Modified Time Details Appointments None record ed. Lab None record ed. Referral None record ed. Procedures None record ed. Surgeries None record ed. Imaging None record ed. Medication Orders None record ed. Patient TargetsNo targets recorded. Patient InstructionsNo instructions recorded. Reason for Referral None Reported. Results Created Date Observation Date Name Description Value Unit Range Abnormal Flag Note LastModifiedBy Organization Detail LastModifiedTime 01/17/20 20 01/18/2020 clnt restr ict - [place] 28 week/ OB 50 panel hemoglobin (HGB) 9.0 gm/dL 11.5-1 5.5 low Not Available [facility] ([facility]) [address] [facility] [address], [place], [address], 01/20/2020 13:18:37 01/17/20 20 01/18/2020 clnt restr ict - [place] 28 week/ OB 50 panel hematocrit (HCT) 26.4 % 35.2-4 6.4 low Not Available [facility] ([facility]) [facility], [place], [address], 01/20/2020 13:18:37 01/17/20 20 01/18/2020 clnt restr ict - [place] 28 week/ OB 50 panel glucose one hour 93 mg/dL <130 This cutof f is based on recom menda tions by ACOG for scree jeff of pregn ant patie nts for diabe ignacio. Confi rmati on of abnor mal resul ts with 100-g lamberto/3 -hour test is recom hyun d. Not Available [facility] ([facility]) [facility] [address], [place], [address], 01/20/2020 13:18:37 01/17/20 20 01/18/2020 clnt restr ict - [place] 28 week/ OB 50 panel HIV 1/2 Ab screen w/p24ag Nonrea ctive nonrea ctive Not Available [facility] ([facility]) [facility] [facility] [address], [place], [address], 01/20/2020 13:18:37 01/17/20 20 01/20/2020 clnt restr ict - [place] 28 week/ OB 50 panel RPR (non-trepone mal) reflex to confirmation Nonrea ctive nonrea ctive Not Available [facility] ([facility]) [facility] [address], [place], [address], 01/20/2020 13:18:37 03/09/20 20 03/11/2020 strep tococ cus group B DNA GB specimen source Vagina l/Rect al Not Available [facility] ([facility]) [address], [place], [address], 03/11/2020 09:56:34 03/09/2003/11/2020 strep tococ cus group B DNA spec type Cultur e Swab Not Available [facility]) [address] [facility], [place], [address], 03/11/2020 09:56:34 03/09/2003/11/2020 strep tococ cus group B DNA group B strep by PCR NOT DETECT ED not detect ed Inter preta tion: A posit isaias resul t indic ates the detec tion of Group B Strep tococ cus DNA but not neces saril y the prese nce of viabl e organ isms; it is presu mptiv e for the prese nce of Group B Strep tococ cus. A negat isaias resul t does not exclu de the possi bilit y of infec tion since very low level s of micro organ ism or sampl ing error may cause a false negat isaias resul t. This assay is highl y accur ate, but rare false posit isaias and false negat isaias resul ts may occur . Metho dolog y: This resul t was deter mined using the FDA-c leare d BD Max GBS Assay . The BD Max GBS Assay is a quali tativ e in vitro diagn ostic test for the rapid detec tion of Group B Strep tococ cus (GBS) DNA in vagin al/re ctal speci mens from prepa rtum or intra partu m women utili zing real- time PCR. Perfo rmed by [facility], d/b/a Ashish nunes, [address], [place] [address] , Oleg Dodson ra, DO, Labor atory Dire tor. Not Available [facility] ([facility]) [address], [place], [address], 03/11/2020 09:56:34 08/27/19 21 08/27/2020 US, obste tric, 2nd or 3rd randell knight md interpretati on Not Available [facility] [address], [place], [address], 12/02/2019 12:38:49 Result Notes None recorded. Problems Name Problem SNOMED Code Status Onset Date Resolution Date Notes Provider Name and Address Organization Details Recorded Time Urinary tract infectio us disease 26596386 Active 2014 Urinary tract infectio n, site not specifie d;Practi ce ID: 0001 Not Available [facility] 0 18:29:29 Microsco pic hematuri a 778900342 Active 2014 MICROSCO PIC HEMATURI A;Practi ce ID: 0001 Not Available [facility] 0 18:29:[address] Concept Active 2014 Encntr for business economist exam (general ) (routine ) w/o abn findings ;Practic e ID: 0001 Not Available [facility] 0 18:29:[address] Concept Active 2014 Encounte r for surveill ance of other contrace ptives;P ractice ID: 0001 Not Available [facility] 0 18:29:30 Pregnanc y test negative 343140858 Active 2014 Encounte r for pregnanc y test, result negative ;Practic e ID: 0001 Not Available [facility] 0 18:29:30 Atypical squamous cells of undeterm ined signific ance on cervical Papanico laou smear 053083926 Active 2015 Atyp squam cell of undet signfc cyto smr crvx (ASC-US) ;Practic e ID: 0001 Not Available [facility] 0 18:29:30 Antenata l screenin g Active 2019 Encounte r for antenata l screenin g for uncertai n dates;Pr actice ID: 0001 Not Available [facility] 0 18:29:30 Normal pregnanc y in multigra zully 43720122330 4106 Active 2019 Encounte r for suprvsn of normal pregnanc y, second trimeste r;Practi ce ID: 0001 Not Available [facility] 0 18:29:30 Primigra zully 844474888 Active 2014 Supervis ion of normal first pregnanc y;Record ed Elsewher e: No Locat ion: Robertapeter rubi [facility] S ource: EHR Cook Roast steffany: N Hermanti ce ID: 0001 Casey lable Time: 02:15:00 PM Not Available [facility] 0 18:29:30 Leukocyt osis 961510232 Active 2014 LEUKOCYT OSIS NOS;Gallito rded Elsewher e: No Locat ion: Robertaedenalma venegas [facility] S ource: EHR Cook Roast steffany: N Hermanti ce ID: 0001 Casey lable Time: 03:15:00 PM Not Available [facility] 0 18:29:31 Labor and delivery complica gina by heart rate anomaly 411125326 Active 2014 ABNORMAL ITY IN HEART RATE OR RHYTHM, ANTEPART UM;Recor ded Elsewher e: No Locat ion: Sommer rubi [facility] S ource: EHR Cook Roast steffany: N Hermanti ce ID: 0001 Casey lable Time: 02:15:00 PM Not Available [facility] 0 18:29:31 Educatio n Active 2018 Encounte r for other general counseli ng and advice on contrace ption;Re corded Elsewher e: No Locat ion: Sommer rubi [facility] S ource: EHR Cook Roast steffany: N Hermanti ce ID: 0001 Casey lable Time: 11:30:00 AM Not Available [facility] 0 18:29:31 Poor growth affectin g manageme nt 921710344 Active 2014 Poor growth, affectin g manageme nt of mother, antepart um conditio n or complica tion;Rec orded Elsewher e: No Locat ion: Robertapeter rubi [facility] S ource: EHR Cook Roast steffany: N Hermanti ce ID: 0001 Casey lable Time: 11:30:00 AM Not Available [facility] 0 18:29:32 Postpart um care Active 2014 Post Followup ;Recorde d Elsewher e: No Locat ion: Sommer venegas [facility] S ource: EHR Cook Roast steffany: N Practi ce ID: 0001 Casey lable Time: 11:00:00 AM Not Available [facility] 0 18:[facility]:[address] Concept Active 2014 Encntr for general adult medical exam w/o abnormal findings ;Recorde d Elsewher e: No Locat ion: Sommer venegas [facility] S ource: EHR Cook Roast steffany: N Practi ce ID: 0001 Casey lable Time: 11:30:00 AM Not Available [facility] 0 18:29:33 Speciali zed medical examinat ion Active 2010 Routine gynecolo gical examinat ion;Prac ting ID: 0001 Not Available [facility] 0 18:29:33 Screenin g for malignan t neoplasm of cervix Active 2010 Pap Smear;Pr actice ID: 0001 Not Available [facility] 0 18:29:33 Delivery normal 12564434 Active 2014 Normal delivery ;Practic e ID: 0001 Not Available [facility] 0 18:29:34 Single live 190764524 Active 2014 Mother with single liveborn ;Practic e ID: 0001 Not Available [facility] 0 18:29:34 Rheumato id florence s [id number] Active 2019 See 01/29 note below - Waiting to see MFM until insuranc e is active! Had consult with MFM in 2013 pregnanc y and they just recommen ded getting establis hed with rheumato logist for possible pp flare, but need up to date consult. Deedee lomeli [facility] 1 17:19:22 Pregnanc y 63980931 Completed 201908/06/2020 Deedee lomeli [facility] 17:19:27 Rheumato id arthrivinicius s [id number] Completed 2019 See 01/29 note below - Waiting to see MFM until insuranc e is active! Had consult with MFM in 2013 pregnanc y and they just recommen ded getting establis hed with rheumato logist for possible pp flare, but need up to date consult. Deedee lomeli [facility] 1 17:19:22 Problem Notes None recorded. Procedures Surgical History Date Name Laterality Status Provider Name and Address Organization Details Recorded Time 1 Appendectomy completed Sirena Thurston [facility] 11/29/2019 16:52:27 Imaging Results None recorded. Procedure Notes None recorded. Medical Equipment None Reported. Medications Name Sig Start Date Stop Date Status Note LastModified by Organization Details LastModified Time Macrobid 100 mg capsule take 1 capsule by oral route every 12 hours with food, as directed 07/07 completed Prescrib ed Elsewher e: No Locat ion: [facility] By: case treviñountmariza DateTime : 03/27/20 15 03:15:00 PM Not Available Not Available Not Available Vitamin D2 1,250 mcg (50,000 unit) capsule take 1 capsule by oral route every week 02/17 completed Prescrib ed Elsewher e: No Locat ion: [facility] By: case champion DateTime : 11/21/19 15 02:08:08 PM Not Available Not Available Not Available Ortho Tri-Cycle n (28) 0.18 mg(7)/0.2 15 mg(7)/0.2 5 mg(7)-35 mcg tablet take 1 tablet by oral route every day 07/07 completed Prescrib ed Elsewher e: No Locat ion: [facility] By: case treviñountmariza DateTime : 02/18/20 15 11:00:00 AM Not Available Not Available Not Available Bactrim DS 800 mg-160 mg tablet take 1 tablet by oral route every 12 hours 07/07 completed Prescrib ed Elsewher e: No Locat ion: [facility] By: amkuhl E ncounter DateTime : 04/01/20 15 02:11:20 PM Not Available Not Available Not Available Microgest in Fe 1.5/30 (28) 1.5 mg-30 mcg (21)/75 mg (7) tablet take 1 tablet by oral route every day 10/23 completed Prescrib ed Elsewher e: No Locat ion: Robertapeter rubi [facility]ify By: tomy monge DateTime : 10/20/19 19 11:30:00 AM Not Available Not Available Not Available iron ER 325 mg (65 mg iron) capsule,e xtended release take 1 Tablet by Oral route 3 times every day 03/27 completed Prescrib ed Elsewher e: Yes Loca tion: [facility] By: case Venegas ncounter DateTime : 02/18/20 15 11:00:00 AM Not Available Not Available Not Available 12/29 completed Not Available Not Available Not Available Panchito norman Multi-Vit Gummies active Not Available Not Available Not Available Nexplanon 68 mg subdermal implant 10/19 completed Prescrib ed Elsewher e: Yes Loca tion: [facility] By: tomy monge DateTime : 02/08/20 16 09:00:00 AM Not Available Not Available Not Available Vitals Date Recorded Body height Body mass index (BMI) Body weight Systolic blood pressure Diastolic blood pressure Provider Name and Address Organization Details Last Updated DateTime 02/13/2020 163.83 cm 25.5 kg/m2 43784.44 787 g 106 mm[Hg] 67 mm[Hg] Sirena Thurston [facility] 0 12:45:15 Date Recorded Body height Body mass index (BMI) Body weight Systolic blood pressure Diastolic blood pressure Provider Name and Address Organization Details Last Updated DateTime 02/28/2020 163.83 cm 25.7 kg/m2 76958.04 024 g 105 mm[Hg] 71 mm[Hg] Maia Reaves [facility] 0 11:37:59 Date Recorded Body height Body mass index (BMI) Body weight Systolic blood pressure Diastolic blood pressure Provider Name and Address Organization Details Last Updated DateTime 03/09/2020 163.83 cm 26 kg/m2 84625.22 498 g 117 mm[Hg] 80 mm[Hg] [facility] 0 17:16:47 Date Recorded Body height Body mass index (BMI) Body weight Systolic blood pressure Diastolic blood pressure Provider Name and Address Organization Details Last Updated DateTime 03/20/2020 163.83 cm 26.4 kg/m2 14440.40 972 g 112 mm[Hg] 63 mm[Hg] [facility] 0 12:57:33 Date Recorded Body height Body mass index (BMI) Body weight Systolic blood pressure Diastolic blood pressure Provider Name and Address Organization Details Last Updated DateTime 03/25/2020 163.83 cm 26.7 kg/m2 08764.59 446 g 110 mm[Hg] 75 mm[Hg] [facility] 0 16:14:05 Social History Question Answer Notes LastModified by Colibrí Details LastModified Time Tobacco Smoking Status Former Sm[facility] 12/02/2019 12:44:09 What Is Your Level Of Alcohol Consumption? None Information not available 12/02/2019 Sex: Unknown Functional Status Question Answer Note LastModified by Organizat ion Details LastModified Time What is your exercise level? Occasional Information not available 12/02/2019 Mental Status None recorded. Family History Relationship Description Onset Age of this Age Resolved Age Notes LastModified by Organization Details LastModified Time Maternal Uncle Diabetes mellitus [email or web address] Not available 2019 16:52:00 Notes:Uncle: 'Diabetes Medical History Condition Response Other Y Gynecological HistoryNo gynecological history recorded. Obstetrics History GPAL:G 2 P 2 0 0 2 Type Value Full Term 2 Living 2 Total 2 Past Encounters Encounter ID Performer Location Encounter Start Date Encounter Closed Date Diagnosis/Indication Diagnosis SNOMED-CT Code Diagnosis ICD10 Code Diagnosis Note [id number] Micki [facility] [address] [address] 12/02/2019 11:17:32 12/02/2019 13:29:10 screening for malformation 160377037 Z36.3 [id number] [facility] [address],[place] [address] 12/02/2019 11:22:47 12/02/2019 13:16:55 Routine care 338680440 Z34.92 [id number] [facility] [address],[place] [address] 12/30/2019 14:20:37 12/30/2019 15:28:12 Routine care 134516479 Z34.92 [id number] Cain Young MD [facility] [address] [address] 01/17/2020 10:35:21 01/17/2020 11:34:38 Routine care 976032838 Z34.83 [id number] MD Henry Hernandez [address],[place] [address] 01/30/2020 12:15:12 01/30/2020 13:22:11 screening 753728692 Z36.89 [id number] [facility] [address],[place] [address] 02/13/2020 12:40:47 02/13/2020 13:31:22 Routine care 116949528 Z34.92 [id number] Cain Young MD [place] [address],[place] [address] 02/28/2020 11:27:51 02/28/2020 12:13:46 Routine care 361175151 Z34.83 [id number] MD Henry Hernandez [address],[place] [address] 03/09/2020 17:04:09 03/09/2020 17:52:44 Routine care 899894779 Z34.83 [id number] MD Henry Hernandez [address],[place] [address] 03/20/2020 12:38:49 03/23/2020 00:03:56 Routine care 598204807 Z34.83 [id number] Cain Young MD [place] [address] [address] 03/25/2020 16:09:06 03/25/2020 16:27:30 Routine care 437247654 Z34.83 Health Concerns Section Related Observation LastModified by Organization Detai ls LastModified Time None Recorded Concern Status LastModified by Organization Details LastModified Time None Recorded Advance Directives Directive None Recorded Payers Encounter Date Sequence Insurance Name Policy Number Policy Hairston Covered Member ID Hairston Member ID Guarantor Name 02/13/2020 1 *SELF PAY* Comfort clayton Hwang 02/28/2020 1 *SELF PAY* Comfort Hwang 03/09/2020 1 *SELF PAY* Comfort Hwang 03/20/2020 1 [facility] A[facility] Jacky Hwang [id number] Jacky Hwang 03/25/2020 1 MEDICA[place]: [facility] Jacky Hwang [id number] Jacky Hwang OBGyn Episode Ob Episode Information Episode Created Date Number of Fetuses Patient Bloodtype Patient rh Status Prepregnancy Weight lbs Domestic Partner Domestic Partner Phone Father Name Deputy Sheriff Civil Division Status 12/02/19 20 1 O Positive 122 CLOSED Fetus Data First Name Last Name Admitted to NICU Weight (g) Sex Living Outcome Pediatric Complications Fetus ID Race Codes Race Delivery Type 3401.94 M true Full Term with 1 pop off 1094 Vaginal Delivery Problems Problem Notes Problem Name Start Date End Date Resolution Snomed Code Not e Rheumatoid arthritis 11/28/2019 24867490 See 01/29 note be low - Waiting to see MFM until insurance is active! Had consult with MFM in 2013 and they just recommended getting established with night time babysitter for possible pp flare, but need up to date consult. Jair Calculation Initial Jair Date Initial Exam Date Initial Exam Provider Initial Ultrasound Date Last Menstrual Period Date Ultra Sound Weeks Gestation 04/05/2020 12/02/2019 10/10/2019 14 Eighteen To Twenty Week Jair Update Ultra Sound Date Fundal Height At Umbil Quickening Date Ultra Sound Latest Weeks Gestation Final Jair Confirmed By Final Jair Confirmed Date Final Jair Date Ultra Sound Latest Days Gestation 0 [email or web address] 12/02/2019 04/05/20 20 0 Pre-wm Flowsheet Flowsheet Date 12/02/2019 Patel Score Blood Edema Fundus Height Fundus Units Glucose Ketones Leukocytes Nitrite Labor Signs Protein Cervic Dilation Cervic Effacement Cervic Station 21 trace Type Weight in lbs Pre/Post Dialysis Refused Weight 132.931767824388 BP Diastolic BP Location Tested BP Systolic BP Type 89 127 Fetus Heart Rate Present A 150 Fetus Movement A Yes Comments Flowsheet Date 10/10/2019 Patel Score Blood Edema Fundus Height Fundus Units Glucose Ketones Leukocytes Nitrite Labor Signs Protein Cervic Dilation Cervic Effacement Cervic Station trace 14 trace Type Weight in lbs Pre/Post Dialysis Refused Weight 102.116371754064 BP Diastolic BP Location Tested BP Systolic BP Type 86 121 sitting Fetus Heart Rate Present A 146 Fetus Movement A No Comments This patient is a 29-year-ol d 2 para 1001 at 14 weeks gestation who presents for initial care. She is unsure dates. She was dated by 14 week ultrasound today. She has rheumatoid arthritis with some joint deformity. She will see [facility] for level 2 ultrasound and consult. Flowsheet Date 10/24/2019 Patel Score Blood Edema Fundus Height Fundus Units Glucose Ketones Leukocytes Nitrite Labor Signs Protein Cervic Dilation Cervic Effacement Cervic Station none trace Type Weight in lbs Pre/Post Dialysis Refused Weight 123.419583344014 BP Diastolic BP Location Tested BP Systolic BP Type 79 112 sitting Fetus Heart Rate Present A 150 Fetus Movement A No Comments OB [id number] pt states that tanner ving normal discharge.Gender u/s today. Pt is not finding out until next week. Flowsheet Date 12/30/2019 Patel Score Blood Edema Fundus Height Fundus Units Glucose Ketones Leukocytes Nitrite Labor Signs Protein Cervic Dilation Cervic Effacement Cervic Station none 26 trace Type Weight in lbs Pre/Post Dialysis Refused Weight 139.715001580264 BP Diastolic BP Location Tested BP Systolic BP Type 67 106 sitting Fetus Heart Rate Present A 144 Fetus Movement A Yes Comments *Nextgen down. Unable to roge naomie history.* Pt does not have insurance yet. Still would like to wait on mfm consult. Will return in 2 weeks for 1 hour gtt. Flowsheet Date 01/17/2020 Patel Score Blood Edema Fundus Height Fundus Units Glucose Ketones Leukocytes Nitrite Labor Signs Protein Cervic Dilation Cervic Effacement Cervic Station 28 trace Type Weight in lbs Pre/Post Dialysis Refused Weight 144.788458823571 BP Diastolic BP Location Tested BP Systolic BP Type 69 128 Fetus Heart Rate Present A 145 Fetus Movement A Yes Comments Patient is getting glucose t olerance test today. Flowsheet Date 01/30/2020 Patel Score Blood Edema Fundus Height Fundus Units Glucose Ketones Leukocytes Nitrite Labor Signs Protein Cervic Dilation Cervic Effacement Cervic Station 30 trace Type Weight in lbs Pre/Post Dialysis Refused Weight 147.486347123424 BP Diastolic BP Location Tested BP Systolic BP Type 66 104 Fetus Heart Rate Present A 145 Fetus Movement A Yes Comments Patient has an appoint with [facility] to get insurance, she does not have a night time babysitter that she is established with. She is not seen MFM yet. She has not wanted to incur the cost. Understandable. I informed her that we would like to have her see MFM after she gets insurance. Flowsheet Date 02/13/2020 Patel Score Blood Edema Fundus Height Fundus Units Glucose Ketones Leukocytes Nitrite Labor Signs Protein Cervic Dilation Cervic Effacement Cervic Station 32 trace Type Weight in lbs Pre/Post Dialysis Refused Weight 151.256794623647 BP Diastolic BP Location Tested BP Systolic BP Type 67 L arm 106 sitting Fetus Heart Rate Present Fetus Movement Comments Pt doing well. Will call tolamine hayward to schedule pre admit. Flowsheet Date 02/28/2020 Patel Score Blood Edema Fundus Height Fundus Units Glucose Ketones Leukocytes Nitrite Labor Signs Protein Cervic Dilation Cervic Effacement Cervic Station 35 Type Weight in lbs Pre/Post Dialysis Refused Weight 152.123440629444 BP Diastolic BP Location Tested BP Systolic BP Type 71 105 Fetus Heart Rate Present A 145 Fetus Movement A Yes Comments Flowsheet Date 03/09/2020 Patel Score Blood Edema Fundus Height Fundus Units Glucose Ketones Leukocytes Nitrite Labor Signs Protein Cervic Dilation Cervic Effacement Cervic Station 36 trace Type Weight in lbs Pre/Post Dialysis Refused Weight 154.722964972124 BP Diastolic BP Location Tested BP Systolic BP Type 80 117 Fetus Heart Rate Present A 145 Fetus Movement A Yes Comments Flowsheet Date 03/20/2020 Patel Score Blood Edema Fundus Height Fundus Units Glucose Ketones Leukocytes Nitrite Labor Signs Protein Cervic Dilation Cervic Effacement Cervic Station 36 trace Type Weight in lbs Pre/Post Dialysis Refused Weight 156.942466535080 BP Diastolic BP Location Tested BP Systolic BP Type 63 112 Fetus Heart Rate Present A 145 Fetus Movement A Yes Comments Once a female to do her grou p B strep vaginal swab Flowsheet Date 03/25/2020 Patel Score Blood Edema Fundus Height Fundus Units Glucose Ketones Leukocytes Nitrite Labor Signs Protein Cervic Dilation Cervic Effacement Cervic Station 38 Type Weight in lbs Pre/Post Dialysis Refused Weight 158.945332491572 BP Diastolic BP Location Tested BP Systolic BP Type 75 110 Fetus Heart Rate Present A 150 Fetus Movement A Yes Comments Menstrual History Last Menstrual Date Menses Monthly On Bcp Conception Prior Menses Frequency Hcg Plus Date Menarche Onset Age Genetic Screening And Infection History Question Response Note Mental Retardation/Autism false Patient's Age Will Be 35 Years Or Older At Estim ated Date of Delivery false Thalassemia (Hebrew, Colombian, Mediterranean, Or Background): MCV < 80 false Neural Tube Defect (Meningomyelocele, Spina Bifi da, Or Anencephaly) false Congenital Heart Defect false Down Syndrome false Ruben-Sachs (eg, Confucianism, Cajun, Turkish-Hong Konger) f alse Latrell Disease false Sickle Cell Disease Or Trait () false Hemophilia Or Other Blood Disorders false Muscular Dystrophy false Cystic Fibrosis false Addison's Chorea false Intellectual Disability/Autism false If Yes, Was Person Tested For Fragile X? false Other Inherited Genetic Or Chromosomal Disorder false Maternal Metabolic Disorder (eg, Type 1 Diabetes , PKU) false Patient Or Baby's Father Had A Child With Defects Not Listed Above false Recurrent Loss, Or A Stillbirth false Medications (including Suppl ements, Vitamins, Herbs, OTC Drugs), Illicit/Recreational Drugs, Alcohol false If Yes, Agent(s) And Strength/Dosage false Any Other Genetic History false Live With Someone With TB Or Exposed To TB false Patient Or Partner Has History Of Genital Herpes false Rash Or Viral Illness Since Last Menstrual Perio d false History Of STD, Gonorrhea, Chlamydia, HPV, Syphi lis false Other Infection History false History of HIV false History of Hepatitis false Prior GBS-infected child false Hemoglobinopathy Or Carrier false Other Structural Defect false Recent Travel History Outside of Country false Delivery Information Delivery Date Delivery Type Labor Anesthesia Weeks Gestation Incision Type Labor Labor Length Hrs Delivered By Post Complications Tubal Sterilization Discharge Date Comments 0 Induce d Regional-Ep idural 39.1 false [email or web address] Discharge Information Feeding Method Contraceptive Method Maternal HG B and HCT Levels Ob Episode Information Episode Created Date Number of Fetuses Patient Bloodtype Patient rh Status Prepregnancy Weight lbs Domestic Partner Domestic Partner Phone Father Name Deputy Sheriff Civil Division Status 12/02/19 20 1 CLOSED Fetus Data First Name Last Name Admitted to NICU Weight (g) Sex Living Outcome Pediatric Complications Fetus ID Race Codes Race Delivery Type [id number] Full Term 1083 Vaginal Delivery Jair Calculation Initial Jair Date Initial Exam Date Initial Exam Provider Initial Ultrasound Date Last Menstrual Period Date Ultra Sound Weeks Gestation 0 Eighteen To Twenty Week Jair Update Ultra Sound Date Fundal Height At Umbil Quickening Date Ultra Sound Latest Weeks Gestation Final Jair Confirmed By Final Jair Confirmed Date Final Jair Date Ultra Sound Latest Days Gestation 0 0 Menstrual History Last Menstrual Date Menses Monthly On Bcp Conception Prior Menses Frequency Hcg Plus Date Menarche Onset Age Delivery Information Delivery Date Delivery Type Labor Anesthesia Weeks Gestation Incision Type Labor Labor Length Hrs Delivered By Post Complications Tubal Sterilization Discharge Date Comments 5 40.3 Discharge Information Feeding Method Contraceptive Method Maternal HG B and HCT Levels Ob Episode Information Episode Created Date Number of Fetuses Patient Bloodtype Patient rh Status Prepregnancy Weight lbs Domestic Partner Domestic Partner Phone Father Name Deputy Sheriff Civil Division Status 04/08/20 20 1 DELETED Jair Calculation Initial Jair Date Initial Exam Date Initial Exam Provider Initial Ultrasound Date Last Menstrual Period Date Ultra Sound Weeks Gestation 0 Eighteen To Twenty Week Jair Update Ultra Sound Date Fundal Height At Umbil Quickening Date Ultra Sound Latest Weeks Gestation Final Jair Confirmed By Final Jair Confirmed Date Final Jair Date Ultra Sound Latest Days Gestation 0 0 Menstrual History Last Menstrual Date Menses Monthly On Bcp Conception Prior Menses Frequency Hcg Plus Date Menarche Onset Age Delivery Information Delivery Date Delivery Type Labor Anesthesia Weeks Gestation Incision Type Labor Labor Length Hrs Delivered By Post Complications Tubal Sterilization Discharge Date Comments 0 39.1 Discharge Information Feeding Method Contraceptive Method Maternal HG B and HCT Levels
--- OUTSIDE RECORDS SUMMARY | 2024-09-03 08:04 | XMS_ITS | Referral Summary ---
Author Organization [facility] Address [address] [place] [address] Care Team Providers Care Sheeter Machine Operator Name Role Phone Lady Avila MD Primary Care Provider [phone]- [phone] Lady Avila MD Unavailable [phone] Source Comments [facility],non-owned Affiliates and Associated Physician Practices is amultiple site organization consisting of ambulatory clinics and hospital sitesin [place], [place], [place] and [place]. This disclosure is being madepursuant to the Care Everywhere program and may not contain all information available regarding this patient. Last updated 18.[facility] Allergies No known active allergies Medications * Be aware that medications may not be up to date on this document. Alwaysverify current medications with the patient. Medication Sig Dispensed Refills Start Date End Date Status naproxen sodium (Aleve) 220 MG tablet Take 1 (one) tablet by mouth 2 times daily Active vitamin D, ergocalciferol, (Drisdol) 1.25 MG (52508 UT) capsule Take 1 (one) capsule by mouth every 7 days 12 capsule 03/08/2024 Active ferrous sulfate 325 (65 FE) MG tablet Take 1 (one) tablet by mouth 2 times daily with morning and evening meal for 30 days, THEN 1 (one) tablet daily with breakfast for 60 days. 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 OTC NSAID p.r.n.. H/O juvenile rheumatoid arthritis 07/16/2018 Overview (11/18/2019): With joint deformity Polyarthralgia 07/16/2018 Abnormal auditory perception 05/22/2018 Vitamin D deficiency disease 06/02/2013 Resolved Problems Problem Noted Date Diagnosed Date Resolved Date Supervision of high-risk pre gnancy of young multigravida 11/18/2019 03/21/2024 Overview (11/18/2019): O+ Neg/ Imm/ rpr-NR/Hbsag-NR/HIV-NR/Hep C-Neg DgG7o-9.6 HH 11.3/33.1/ [id number] Inflammatory arthritis 07/16/201803/21 JRA (juvenile rheumatoid arthritis) 05/20/2018 03/21/2024 test negative 07/26/201503/01 Overview (03/06/2024): Encounter for test, result negative;Practice ID: 0001 Leukocytosis 03/27/2015 03/21/2024 Overview (03/06/2024): LEUKOCYTOSIS NOS;Recorded Elsewhere: No Location: [facility] Source: EHR Chronic: N Practice ID: [id number] Billable Time: 03:15:00 PM Microscopic hematuria 03/27/20152023 Overview (03/06/2024): MICROSCOPIC HEMATURIA;Practice ID: 0001 Urinary tract infectious disease 03/27/2015 03/21/2024 Overview (03/06/2024): Urinary tract infection, site not specified;Practice ID: 0001 Delivery normal 01/21/2015 03/21/2024 Overview (03/06/2024): Normal delivery;Practice ID: 0001 Single live 01/21/2015 03/21/2024 Overview (03/06/2024): Mother with single liveborn;Practice ID: 0001 Primigravida 01/13/2015 03/21/2024 Overview (03/06/2024): Supervision of normal first ;Recorded Elsewhere: No Location: [facility] Source: EHR Chronic: N Practice ID: 0001 Billable Time: 02:15:00 PM Intrauterine growth restrict ion (IUGR) affecting care of mother 12/24/2014 03/21/2024 Overview (03/06/2024): Poor growth, affecting management of mother, antepartum condition or complication;Recorded Elsewhere: No Location: [facility] Source: EHR Chronic: N Practice ID: [id number] Billable Time: 11:30:00 AM Immunizations Name Administration Dates Next Due FLU VACCINE TRI IIV3 SPLIT PF IM (FLUVIRIN) 07/2012 TDAP, HISTORIC VACCINE 01/23/2015 Social History Tobacco Use Types Packs/Day Years [...] Mass Index 22.47 03/21/2024 8:06 AM CDT Plan of Treatment Upcoming Encounters Date Type Department Care Team (Late st Contact Info) Description 03/20/2025 8:00 AM CDT Office Visit [facility] - Rheumatology [address], [address] [place] [address] Navneet Lacy DO [address] [place] [address] Care Teams Sheeter Machine Operator Relationship Specialty Start Date End Date Lady Avila MD [address] [address] PCP - General Family Medicine 03/06/24 Lady Avila MD [address] [address] PCP - Attributed-[facility] 03/31/24
--- OUTSIDE RECORDS SUMMARY | 2024-09-03 08:04 | XMS_ITS | Encounter Summary ---
Author Organization [facility] Address [address] Hong: Epic Prelude ADT [place] [address] Care Team Providers Care Furnace Mason Name Role Phone Unavailable Primary Care Provider Unavailabl e Encounter Details Date Type Department Care Team (Late st Contact Info) Description 04/15/1994 Outpatient Historical Conversion, History Social History Tobacco Use Types Packs/Day Years Used Date Smoking Tobacco: Never Assessed Comments Unknown Sex and Gender Information Value Date Recorded Sex Assigned at Not on file Legal Sex Female 3:30 AM DIGITAL MEDIA INTERN Gender Identity Not on file Sexual Orientation Not on file documented as of this encounter Plan of Treatment Not on file documented as of this encounter Visit Diagnoses Not on filedocumented in this encounter
--- OUTSIDE RECORDS SUMMARY | 2024-09-03 08:04 | XMS_ITS | Clinical Summary ---
Author Organization [facility] Address [address] [address] Care Team Providers Care Art Framing Manager Name Role Phone Lady Avila MD Primary Care Provider [phone] Lady Avila MD Unavailable [phone] Source Comments [facility],non-owned Affiliates and Associated Physician Practices is amultiple site organization consisting of ambulatory clinics and hospital sitesin [place], [place], [place]. This disclosure is being madepursuant to the Care Everywhere program and may not contain all information available regarding this patient. Last updated 18.[facility] Allergies No known active allergies Medications * Be aware that medications may not be up to date on this document. Alwaysverify current medications with the patient. Medication Sig Dispensed Refills Start Date End Date Status naproxen sodium (Aleve) 220 MG tablet Take 1 (one) tablet by mouth 2 times daily Active vitamin D, ergocalciferol, (Drisdol) 1.25 MG (35836 UT) capsule Take 1 (one) capsule by [...] Overview (11/18/2019): O+ Neg/ Imm/ rpr-NR/Hbsag-NR/HIV-NR/Hep C-Neg [id number]-0.6 HH 11.3/33.1/ [id number] Inflammatory arthritis 07/16/201803/21 JRA (juvenile rheumatoid arthritis) 05/20/2018 03/21/2024 test negative 07/26/201503/01 Overview (03/06/2024): Encounter for test, result negative;Practice ID: 0001 Leukocytosis 03/27/2015 03/21/2024 Overview (03/06/2024): LEUKOCYTOSIS NOS;Recorded Elsewhere: No Location: [facility] Source: EHR Chronic: N Practice ID: 0001 [...] of normal first ;Recorded Elsewhere: No Location: [facility] Source: EHR Chronic: N Practice ID: [id number] Billable Time: 02:15:00 PM Intrauterine growth restrict ion (IUGR) affecting care of mother 12/24/2014 03/21/2024 Overview (03/06/2024): Poor growth, affecting management of mother, antepartum condition or complication;Recorded Elsewhere: No Location: [facility] Source: EHR Chronic: N Practice ID: [id number] Billable Time: 11:30:00 AM Immunizations Name Administration Dates Next Due FLU VACCINE TRI IIV3 SPLIT PF IM (FLUVIRIN) 07/2012 TDAP, HISTORIC VACCINE 01/23/2015 Family History Medical History Relation Name Comments Hypertension Mother Relation Name Status Comments Mother Social History Tobacco Use Types Packs/Day Years [...] Description 03/20/2025 8:00 AM CDT Office Visit [facility] - Rheumatology [address] [place] [address] Navneet Lacy DO [address] [place] [address] Health Maintenance Due Date Last Done Comments PAP SMEAR 1992 HIV SCREENING 2007 HEPATITIS C SCREENING 04/17/2010 HEPATITIS B VACCINE (1 of 3 - 19+ 3-dose series) 2011 COVID-19 VACCINE (2 - 2023-2 5 season) 2024 06/01/2023 DEPRESSION SCREENING 07/31/2024 03/06/2024 DTAP/TDAP/TD VACCINES (2 - T d or Tdap) 01/23/2025 01/23/2015 ZOSTER VACCINE (1 of 2) 2042 INFLUENZA VACCINE Completed 06/26/2024, 05/31/2013 HIB VACCINE Aged Out No longer eligi ble based on patient's age to complete this topic HPV VACCINE Aged Out No longer eligi ble based on patient's age to complete this topic MENINGOCOCCAL (Group B) VACCINE Aged Out No longer eligible b ased on patient's age to complete this topic MENINGOCOCCAL VACCINE Aged Out No senthil sarah eligible based on patient's age to complete this topic PNEUMOCOCCAL VACCINE Aged Out No long er eligible based on patient's age to complete this topic Care Teams Art Framing Manager Relationship Specialty Start Date End Date Lady Avila MD [address] [address] PCP - General Family Medicine 03/06/24 Lady Avila MD [address] [address] PCP - Attributed-[facility] 03/31/24
--- OUTSIDE RECORDS SUMMARY | 2024-09-03 08:04 | XMS_ITS | Encounter Summary ---
Author Organization [facility] Address [address] 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
--- OUTSIDE RECORDS SUMMARY | 2024-09-03 08:04 | XMS_ITS | Clinical Summary ---
Author Organization [facility] Address [address] [place] [address]. [place] [address] [place] [address] Care Team Providers Care Managed Services Sales Consultant Name Role Phone Unavailable Primary Care Provider Unavailabl e Social History Tobacco Use Types Packs/Day Years Used Date Smoking Tobacco: Never Assessed Comments Unknown Sex and Gender Information Value Date Recorded Sex Assigned at Not on file Legal Sex Female 10:31 AM CDT Gender Identity Not on file Sexual Orientation Not on file Last Filed Vital Signs Vital Sign Reading Time Taken Comments Blood Pressure 94/62 03/28/2018 1:46 PM CDT Pulse 92 03/28/2018 1:46 PM CDT Temperature - - Respiratory Rate - - Oxygen Saturation - - Inhaled Oxygen Concentration - - Weight 50.3 kg (111 lb) 03/28/2018 1:46 PM CDT Height 165.1 cm (5' 5 ) 03/28/2018 1:46 PM CDT Body Mass Index 18.47 03/28/2018 1:46 PM CDT Plan of Treatment Health Maintenance Due Date Last Done Comments Cervical Cancer Screening Pa p Smear (Age 30 to 64) Every 3 Years 1992 Annual Physical 1995 Hepatitis C 2010 DTaP, Tdap and Td Vaccines ( 1 - Tdap) 2011 Hepatitis B Vaccines (1 of 3 - 19+ 3-dose series) 2011 Cervical Cancer Screening Pa p with HPV Testing (Age 30 to 64) Every 5 Years 2022 Cervical Cancer Screening with HPV 2022 COVID-19 Vaccine ( - 2023-2 5 season) 2024 Influenza Adult (#1) 2024 HPV Vaccines Aged Out No longer eligi ble based on patient's age to complete this topic Meningococcal B Vaccine Aged Out No l onger eligible based on patient's age to complete this topic Meningococcal Vaccine Aged Out No senthil sarah eligible based on patient's age to complete this topic Pneumococcal Vaccine: Pediat rics (0 to 5 Years) and At-Risk Patients (6 to 64 Years) Aged Out No longer eligible b ased on patient's age to complete this topic RSV Immunizations Under 20 Months Aged Out No longer eligible based on patient's age to complete this topic Insurance
--- OUTSIDE RECORDS SUMMARY | 2024-09-03 08:04 | XMS_ITS | Encounter Summary ---
Author Organization [employer] Address [address] [place] [address] Care Team Providers Care Office Employee Name Role Phone Unavailable Primary Care Provider Unavailabl e Encounter Details Date Type Department Care Team (Late st Contact Info) Description 08/06/1999 Outpatient Historical [facility] LAB,NON-PATIENT Social History Tobacco Use Types Packs/Day Years Used Date Smoking Tobacco: Never Assessed Comments Unknown Sex and Gender Information Value Date Recorded Sex Assigned at Not on file Legal Sex Female 3:30 AM MANAGER OF FINANCE Gender Identity Not on file Sexual Orientation Not on file documented as of this encounter Plan of Treatment Not on file documented as of this encounter Visit Diagnoses Not on filedocumented in this encounter
--- OUTSIDE RECORDS SUMMARY | 2024-09-03 08:04 | XMS_ITS | Clinical Summary ---
Author Organization [facility] Address [address] 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
--- OUTSIDE RECORDS SUMMARY | 2024-09-03 08:04 | XMS_ITS | Encounter Summary ---
Author Organization [employer] Address [address] [place] [address] Care Team Providers Care Retread Supervisor Name Role Phone Unavailable Primary Care Provider Unavailabl e Encounter Details Date Type Department Care Team (Late st Contact Info) Description 12/17/1999 Outpatient Historical HIS LAB,NON-PATIENT Social History Tobacco Use Types Packs/Day Years Used Date Smoking Tobacco: Never Assessed Comments Unknown Sex and Gender Information Value Date Recorded Sex Assigned at Not on file Legal Sex Female 3:30 AM NIGHT CUSTODIAN Gender Identity Not on file Sexual Orientation Not on file documented as of this encounter Plan of Treatment Not on file documented as of this encounter Visit Diagnoses Not on filedocumented in this encounter
--- OUTSIDE RECORDS SUMMARY | 2024-09-03 08:04 | XMS_ITS | Encounter Summary ---
Author Organization [employer] Address [address] [place] [address] Care Team Providers Care Surface Supervisor Name Role Phone Unavailable Primary Care Provider Unavailabl e Encounter Details Date Type Department Care Team (Late st Contact Info) Description 09/17/1999 Outpatient Historical HIS LAB,NON-PATIENT Social History Tobacco Use Types Packs/Day Years Used Date Smoking Tobacco: Never Assessed Comments Unknown Sex and Gender Information Value Date Recorded Sex Assigned at Not on file Legal Sex Female 3:30 AM RETORT FURNACE HELPER Gender Identity Not on file Sexual Orientation Not on file documented as of this encounter Plan of Treatment Not on file documented as of this encounter Visit Diagnoses Not on filedocumented in this encounter
--- OUTSIDE RECORDS SUMMARY | 2024-09-03 08:04 | XMS_ITS | Encounter Summary ---
[facility] Organization [facility] Address [address] Hong: Epic Prelude ADT [place] [address] Care Team Providers Care Concrete Building Assembler Name Role Phone Unavailable Primary Care Provider Unavailabl e Encounter Details Date Type Department Care Team (Late st Contact Info) Description 07/15/1994 Outpatient Historical Conversion, History Social History Tobacco Use Types Packs/Day Years Used Date Smoking Tobacco: Never Assessed Comments Unknown Sex and Gender Information Value Date Recorded Sex Assigned at Not on file Legal Sex Female 3:30 AM LAN/WAN ENGINEER Gender Identity Not on file Sexual Orientation Not on file documented as of this encounter Plan of Treatment Not on file documented as of this encounter Visit Diagnoses Not on filedocumented in this encounter
--- OUTSIDE RECORDS SUMMARY | 2024-09-03 08:04 | XMS_ITS | Encounter Summary ---
Author Organization [employer] Address [address] [place] [address] Care Team Providers Care Crozer Operator Name Role Phone Unavailable Primary Care Provider Unavailabl e Encounter Details Date Type Department Care Team (Late st Contact Info) Description 08/06/1999 Outpatient Historical HIS LAB,NON-PATIENT Social History Tobacco Use Types Packs/Day Years Used Date Smoking Tobacco: Never Assessed Comments Unknown Sex and Gender Information Value Date Recorded Sex Assigned at Not on file Legal Sex Female 3:30 AM REAL ESTATE AGENCY PRINCIPAL Gender Identity Not on file Sexual Orientation Not on file documented as of this encounter Plan of Treatment Not on file documented as of this encounter Visit Diagnoses Not on filedocumented in this encounter
[2024-09-03 08:30] VITALS: BP 121/90; PULSE 103; RESP 16; TEMP 36.8; O2SAT 100
[2024-09-03 08:55] VITALS: BP 114/83; PULSE 102; RESP 15; O2SAT 100
[2024-09-03 09:24] LABS: Strep Group A RT-PCR DETECTED (Negative)
[2024-09-03] MEDS: KETOROLAC 30 MG/ML VIAL (*BKC) IM (09:26)
[2024-09-03 09:36] LABS: Influenza A QL RT-PCR Positive (Negative); Influenza B QL RT-PCR Negative (Negative); RSV RNA, RT-PCR Negative (Negative); SARS-CoV-2 RNA PCR Negative (Negative)
--- NOTE | 2024-09-03 09:50 | ED_ITS ---
HPI - URI/Sore Throat General Chief Complaint: Upper Respiratory Infection Stated Complaint: cough, sore throat Time Seen by Provider: 09/03/24 08:35 Source: patient Mode of arrival: ambulatory Limitations: no limitations History of Present Illness HPI Narrative: 34-year-old with a history of chronic migraines presents to the ER with the complaints of congestion, sore throat since yesterday. She denied any fever. She states that she took Advil for headache which has not help her with pain. She denies any nausea or vomiting. MD elicited complaint: sore throat and nasal congestion Onset (ago): day(s) (1) Severity: mild Exacerbating factors: nothing Relieving factors: nothing Associated symptoms: denies other symptoms Related Data Allergies Allergy/AdvReac Type Severity Reaction Status Date / Time No Known Allergies Allergy Verified 09/03/24 08:54 Review of Systems Review of Systems: All systems reviewed & are unremarkable except as noted in HPI and below Constitutional: Constitutional: Reports no additional constitutional complaints Eyes: Eyes: Reports no additional eye complaints ENT: Reports system reviewed and no additional complaints, except as documented Cardiovascular: Cardiovascular: Reports no additional cardiovascular complaints Respiratory: Respiratory: Reports as per HPI Musculoskeletal: Musculoskeletal: Reports no additional musculoskeletal complaints Neurologic: Reports system reviewed and no additional complaints, except as documented [facility] Family History Family History Other Diabetes mellitus Social History Social History Smoking status: Never smoker Substance use: never Spiritual care concerns: No Exam Narrative: GENERAL: Well-appearing, well-nourished, and in no acute distress. HEAD: Normocephalic, atraumatic. EYES: PERRLA and EOMI. ENT: Nares clear, no rhinorrhea or epistaxis. Mucous membranes moist. NECK: Supple. CHEST: Clear to auscultation. No respiratory distress. HEART: Regular rate and rhythm. No murmur heard. Normal peripheral pulses. EXTREMITIES: Normal range of motion. No edema. SKIN: Warm, dry, no rash. NEURO: No focal deficits. Alert and oriented x3. PSYCH: Normal mood and affect. Course Course Emergency Course: Notified her about her lab work, advised her to take antibiotic and Tamiflu as prescribed Vital Signs Vital signs: Vital Signs Temperature 36.8 C 09/03/24 08:30 Pulse Rate 103 H 09/03/24 08:30 Respiratory Rate 16 09/03/24 08:30 Blood Pressure 121/90 09/03/24 08:30 Pulse Oximetry 100 09/03/24 08:30 Temperature 36.8 C 09/03/24 08:30 Pulse Rate 102 H 09/03/24 08:55 Respiratory Rate 15 09/03/24 08:55 Blood Pressure 114/83 09/03/24 08:55 Pulse Oximetry 100 09/03/24 08:55 Oxygen Delivery Room Air 09/03/24 08:55 MDM - URI/Sore Throat Lab Data Labs: Lab Results 09/03/24 Range/Units 08:48 Influenza A (RT-PCR) Positive A (Negative) Influenza B (RT-PCR) Negative (Negative) RSV (RT-PCR) Negative (Negative) SARS-CoV-2 RNA (RT-PCR) Negative (Negative) Group A Strep (PCR) Detected A (Negative) Discharge Plan Discharge Clinical Impression: Influenza, Strep throat Patient Disposition: Home, Self-Care Condition: Stable Instructions: Strep Throat (DC), Influenza (ED) Additional Instructions: Drink more fluids, take Tylenol ibuprofen for body aches and fever take antibiotic as prescribed. Patient Language: Tuvaluan Prescriptions: New amoxicillin 875 mg tablet 875 mg PO Q12H Qty: 20 0RF oseltamivir [Tamiflu] 75 mg capsule 75 mg PO Q12H 5 Days Qty: 10 0RF Follow-up/Referrals: Margarita,Lady Calixto MD [Primary Care Provider] -
--- OUTSIDE RECORDS SUMMARY | 2024-09-03 10:29 | XMS_ITS | Clinical Summary ---
Author Organization [facility] Address [address] 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
--- OUTSIDE RECORDS SUMMARY | 2024-09-03 10:29 | XMS_ITS | Referral Summary ---
Author Organization [facility] Address [address] [place] [address] Care Team Providers Care Dental Tech Name Role Phone Lady Avila MD Primary Care Provider [phone]- [phone] Lady Avila MD Unavailable [phone] Source Comments [facility],non-owned Affiliates and Associated Physician Practices is amultiple site organization consisting of ambulatory clinics and hospital sitesin [place], [place], [place] and [place]. This disclosure is being madepursuant to the Care Everywhere program and may not contain all information available regarding this patient. Last updated 18.[facility] Allergies No known active allergies Medications * Be aware that medications may not be up to date on this document. Alwaysverify current medications with the patient. 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 Source: EHR Chronic: N Practice ID: [...] of normal first ;Recorded Elsewhere: No Location: [facility] Source: EHR Chronic: N Practice ID: 0001 Billable Time: 02:15:00 PM Intrauterine growth restrict ion (IUGR) affecting care of mother 12/24/2014 03/21/2024 Overview (03/06/2024): Poor growth, affecting management of mother, antepartum condition or complication;Recorded Elsewhere: No Location: [facility] Source: EHR Chronic: N Practice ID: [...] Description 03/20/2025 8:00 AM CDT Office Visit [facility] - Rheumatology [address], [address] [place] [address] Navneet Lacy DO [address] [place] [address] Care Teams Dental Tech Relationship Specialty Start Date End Date Lady Avila MD [address] [address] PCP - General Family Medicine 03/06/24 Lady Avila MD [address] [address] PCP - Attributed-[facility] 03/31/24
--- OUTSIDE RECORDS SUMMARY | 2024-09-03 10:29 | XMS_ITS | Encounter Summary ---
Author Organization [facility] Address [address] Hong: Epic Prelude ADT [place] [address] Care Team Providers Care Greeter Guest Services Name Role Phone Unavailable Primary Care Provider Unavailabl e Encounter Details Date Type Department Care Team (Late st Contact Info) Description 09/06/1996 Outpatient Historical Conversion, History Social History Tobacco Use Types Packs/Day Years Used Date Smoking Tobacco: Never Assessed Comments Unknown Sex and Gender Information Value Date Recorded Sex Assigned at Not on file Legal Sex Female 3:30 AM DAG SPRAYER Gender Identity Not on file Sexual Orientation Not on file documented as of this encounter Plan of Treatment Not on file documented as of this encounter Visit Diagnoses Not on filedocumented in this encounter
--- OUTSIDE RECORDS SUMMARY | 2024-09-03 10:29 | XMS_ITS | Encounter Summary ---
Author Organization [facility] Address [address] Hong: Epic Prelude ADT [place] [address] Care Team Providers Care Ladies Locker Room Attendant Name Role Phone Unavailable Primary Care Provider Unavailabl e Encounter Details Date Type Department Care Team (Late st Contact Info) Description 11/18/1994 Outpatient Historical Conversion, History Social History Tobacco Use Types Packs/Day Years Used Date Smoking Tobacco: Never Assessed Comments Unknown Sex and Gender Information Value Date Recorded Sex Assigned at Not on file Legal Sex Female 3:30 AM JEWEL BEARING FACER Gender Identity Not on file Sexual Orientation Not on file documented as of this encounter Plan of Treatment Not on file documented as of this encounter Visit Diagnoses Not on filedocumented in this encounter
--- OUTSIDE RECORDS SUMMARY | 2024-09-03 10:29 | XMS_ITS | Encounter Summary ---
Author Organization [facility] Address [address] Hong: Epic Prelude ADT [place] [address] Care Team Providers Care Chlorine Operator Name Role Phone Unavailable Primary Care Provider Unavailabl e Encounter Details Date Type Department Care Team (Late st Contact Info) Description 12/13/1996 Outpatient Historical Conversion, History Social History Tobacco Use Types Packs/Day Years Used Date Smoking Tobacco: Never Assessed Comments Unknown Sex and Gender Information Value Date Recorded Sex Assigned at Not on file Legal Sex Female 3:30 AM MARINE GEAR KEEPER Gender Identity Not on file Sexual Orientation Not on file documented as of this encounter Plan of Treatment Not on file documented as of this encounter Visit Diagnoses Not on filedocumented in this encounter
--- OUTSIDE RECORDS SUMMARY | 2024-09-03 10:29 | XMS_ITS | Encounter Summary ---
Author Organization [employer] Address [address] [place] [address] Care Team Providers Care Media Promoter Name Role Phone Unavailable Primary Care Provider Unavailabl e Encounter Details Date Type Department Care Team (Late st Contact Info) Description 05/19/2000 Outpatient Historical [facility], [address] Social History Tobacco Use Types Packs/Day Years Used Date Smoking Tobacco: Never Assessed Comments Unknown Sex and Gender Information Value Date Recorded Sex Assigned at Not on file Legal Sex Female 3:30 AM HOLIDAY DETECTOR OPERATOR Gender Identity Not on file Sexual Orientation Not on file documented as of this encounter Plan of Treatment Not on file documented as of this encounter Visit Diagnoses Not on filedocumented in this encounter
--- OUTSIDE RECORDS SUMMARY | 2024-09-03 10:29 | XMS_ITS | Encounter Summary ---
Author Organization [facility] Address [address] Hong: Epic Prelude ADT [place] [address] Care Team Providers Care Income Tax Auditor Name Role Phone Unavailable Primary Care Provider Unavailabl e Encounter Details Date Type Department Care Team (Late st Contact Info) Description 09/02/1994 Outpatient Historical Conversion, History Social History Tobacco Use Types Packs/Day Years Used Date Smoking Tobacco: Never Assessed Comments Unknown Sex and Gender Information Value Date Recorded Sex Assigned at Not on file Legal Sex Female 3:30 AM GLOBAL RISK MANAGEMENT DIRECTOR Gender Identity Not on file Sexual Orientation Not on file documented as of this encounter Plan of Treatment Not on file documented as of this encounter Visit Diagnoses Not on filedocumented in this encounter
--- OUTSIDE RECORDS SUMMARY | 2024-09-03 10:29 | XMS_ITS | Encounter Summary ---
Author Organization [employer] Address [address] [place] [address] Care Team Providers Care Short Order Fry Cook Name Role Phone Unavailable Primary Care Provider Unavailabl e Encounter Details Date Type Department Care Team (Late st Contact Info) Description 08/06/1999 Outpatient Historical [facility],NON-PATIENT Social History Tobacco Use Types Packs/Day Years Used Date Smoking Tobacco: Never Assessed Comments Unknown Sex and Gender Information Value Date Recorded Sex Assigned at Not on file Legal Sex Female 3:30 AM PAPER PRODUCTS INSPECTOR Gender Identity Not on file Sexual Orientation Not on file documented as of this encounter Plan of Treatment Not on file documented as of this encounter Visit Diagnoses Not on filedocumented in this encounter
--- OUTSIDE RECORDS SUMMARY | 2024-09-03 10:29 | XMS_ITS | Encounter Summary ---
Author Organization [facility] Address [address] Hong: Epic Prelude ADT [place] [address] Care Team Providers Care Artificial Breeding Distributor Name Role Phone Unavailable Primary Care Provider Unavailabl e Encounter Details Date Type Department Care Team (Late st Contact Info) Description 05/17/1996 Outpatient Historical Conversion, History Social History Tobacco Use Types Packs/Day Years Used Date Smoking Tobacco: Never Assessed Comments Unknown Sex and Gender Information Value Date Recorded Sex Assigned at Not on file Legal Sex Female 3:30 AM DINING SERVER Gender Identity Not on file Sexual Orientation Not on file documented as of this encounter Plan of Treatment Not on file documented as of this encounter Visit Diagnoses Not on filedocumented in this encounter
--- OUTSIDE RECORDS SUMMARY | 2024-09-03 10:29 | XMS_ITS | Encounter Summary ---
Author Organization [employer] Address [address] [place] [address] Care Team Providers Care Vacuum Kettle Cook Name Role Phone Unavailable Primary Care Provider Unavailabl e Encounter Details Date Type Department Care Team (Late st Contact Info) Description 06/04/1999 Outpatient Historical [facility],NON-PATIENT Social History Tobacco Use Types Packs/Day Years Used Date Smoking Tobacco: Never Assessed Comments Unknown Sex and Gender Information Value Date Recorded Sex Assigned at Not on file Legal Sex Female 3:30 AM TREE DOCTOR Gender Identity Not on file Sexual Orientation Not on file documented as of this encounter Plan of Treatment Not on file documented as of this encounter Visit Diagnoses Not on filedocumented in this encounter
--- OUTSIDE RECORDS SUMMARY | 2024-09-03 10:29 | XMS_ITS | Clinical Summary ---
Author Organization [facility] [employer] Address [address] [place] [address] Care Team Providers Care Academic Support Coordinator Name Role Phone Lady Avila MD Primary Care Provider [phone] Lady Avila MD Unavailable [phone] Source Comments [facility],non-owned Affiliates and Associated Physician Practices is amultiple site organization consisting of ambulatory clinics and hospital sitesin [place], [place], [place] and [place]. This disclosure is being madepursuant to the Care Everywhere program and may not contain all information available regarding this patient. Last updated 18.[facility] [employer] Allergies No known active allergies Medications * Be aware that medications may not be up to date on this document. Alwaysverify current medications with the patient. 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 03/21/2024 test negative 07/26/201503/01 Overview (03/06/2024): Encounter for test, result negative;Practice ID: 0001 Leukocytosis 03/27/2015 03/21/2024 Overview (03/06/2024): LEUKOCYTOSIS NOS;Recorded Elsewhere: No Location: [facility] Source: EHR Chronic: N Practice ID: 0001 [...] of normal first ;Recorded Elsewhere: No Location: [facility] Source: EHR Chronic: N Practice ID: 0001 Billable Time: 02:15:00 PM Intrauterine growth restrict ion (IUGR) affecting care of mother 12/24/2014 03/21/2024 Overview (03/06/2024): Poor growth, affecting management of mother, antepartum condition or complication;Recorded Elsewhere: No Location: [facility] Source: EHR Chronic: N Practice ID: [email or web address] [...] Description 03/20/2025 8:00 AM CDT Office Visit [facility] - Rheumatology [address] [place] [address] Navneet Lacy DO [address] [place] [address] Health Maintenance Due Date Last [...] age to complete this topic Care Teams Academic Support Coordinator Relationship Specialty Start Date End Date Lady Avila MD [address] [address] PCP - General Family Medicine 03/06/24 Lady Avila MD [address] [address] PCP - Attributed-[facility] 03/31/24
--- OUTSIDE RECORDS SUMMARY | 2024-09-03 10:29 | XMS_ITS | Encounter Summary ---
Author Organization [facility] Address [address] Hong: Epic Prelude ADT [place] [address] Care Team Providers Care Toolmaker Name Role Phone Unavailable Primary Care Provider Unavailabl e Encounter Details Date Type Department Care Team (Late st Contact Info) Description 09/06/1996 Outpatient Historical Conversion, History Social History Tobacco Use Types Packs/Day Years Used Date Smoking Tobacco: Never Assessed Comments Unknown Sex and Gender Information Value Date Recorded Sex Assigned at Not on file Legal Sex Female 3:30 AM INTEGRATION DIRECTOR Gender Identity Not on file Sexual Orientation Not on file documented as of this encounter Plan of Treatment Not on file documented as of this encounter Visit Diagnoses Not on filedocumented in this encounter
--- OUTSIDE RECORDS SUMMARY | 2024-09-03 10:29 | XMS_ITS | Encounter Summary ---
Author Organization [facility] Address [address] Hong: Epic Prelude ADT [place] [address] Care Team Providers Care Die Setter Name Role Phone Unavailable Primary Care Provider Unavailabl e Encounter Details Date Type Department Care Team (Late st Contact Info) Description 02/03/1997 Outpatient Historical Conversion, History Social History Tobacco Use Types Packs/Day Years Used Date Smoking Tobacco: Never Assessed Comments Unknown Sex and Gender Information Value Date Recorded Sex Assigned at Not on file Legal Sex Female 3:30 AM ASTHMA EDUCATOR Gender Identity Not on file Sexual Orientation Not on file documented as of this encounter Plan of Treatment Not on file documented as of this encounter Visit Diagnoses Not on filedocumented in this encounter
--- OUTSIDE RECORDS SUMMARY | 2024-09-03 10:29 | XMS_ITS | Encounter Summary ---
Author Organization [facility] Address [address] Hong: Epic Prelude ADT [place] [address] Care Team Providers Care Store Clerk Checker Name Role Phone Unavailable Primary Care Provider Unavailabl e Encounter Details Date Type Department Care Team (Late st Contact Info) Description 03/17/1995 Outpatient Historical Conversion, History Social History Tobacco Use Types Packs/Day Years Used Date Smoking Tobacco: Never Assessed Comments Unknown Sex and Gender Information Value Date Recorded Sex Assigned at Not on file Legal Sex Female 3:30 AM SUPERVISOR ORCHARD Gender Identity Not on file Sexual Orientation Not on file documented as of this encounter Plan of Treatment Not on file documented as of this encounter Visit Diagnoses Not on filedocumented in this encounter
--- OUTSIDE RECORDS SUMMARY | 2024-09-03 10:29 | XMS_ITS | Encounter Summary ---
Author Organization [facility] Address [address] Hong: Epic Prelude ADT [place] [address] Care Team Providers Care Perforator Operator Oil Well Name Role Phone Unavailable Primary Care Provider Unavailabl e Encounter Details Date Type Department Care Team (Late st Contact Info) Description 06/14/1996 Outpatient Historical Conversion, History Social History Tobacco Use Types Packs/Day Years Used Date Smoking Tobacco: Never Assessed Comments Unknown Sex and Gender Information Value Date Recorded Sex Assigned at Not on file Legal Sex Female 3:30 AM PSYCHOLOGY PROFESSOR Gender Identity Not on file Sexual Orientation Not on file documented as of this encounter Plan of Treatment Not on file documented as of this encounter Visit Diagnoses Not on filedocumented in this encounter
--- OUTSIDE RECORDS SUMMARY | 2024-09-03 10:29 | XMS_ITS | Encounter Summary ---
Author Organization [facility] Address [address] Hong: Epic Prelude ADT [place] [address] Care Team Providers Care Local Delivery Truck Driver Name Role Phone Unavailable Primary Care Provider Unavailabl e Encounter Details Date Type Department Care Team (Late st Contact Info) Description 10/13/1995 Outpatient Historical Conversion, History Social History Tobacco Use Types Packs/Day Years Used Date Smoking Tobacco: Never Assessed Comments Unknown Sex and Gender Information Value Date Recorded Sex Assigned at Not on file Legal Sex Female 3:30 AM SIZE PAINTER Gender Identity Not on file Sexual Orientation Not on file documented as of this encounter Plan of Treatment Not on file documented as of this encounter Visit Diagnoses Not on filedocumented in this encounter
--- OUTSIDE RECORDS SUMMARY | 2024-09-03 10:29 | XMS_ITS | Encounter Summary ---
Author Organization [employer] Address [address] Hong: Epic Prelude ADT [place] [address] Care Team Providers Care Radio Message Router Name Role Phone Unavailable Primary Care Provider Unavailabl e Encounter Details Date Type Department Care Team (Late st Contact Info) Description 04/15/1994 Outpatient Historical Conversion, History Social History Tobacco Use Types Packs/Day Years Used Date Smoking Tobacco: Never Assessed Comments Unknown Sex and Gender Information Value Date Recorded Sex Assigned at Not on file Legal Sex Female 3:30 AM TRAINING DEVELOPMENT SPECIALIST Gender Identity Not on file Sexual Orientation Not on file documented as of this encounter Plan of Treatment Not on file documented as of this encounter Visit Diagnoses Not on filedocumented in this encounter
--- OUTSIDE RECORDS SUMMARY | 2024-09-03 10:29 | XMS_ITS | Encounter Summary ---
Author Organization [facility] Address [address] [place] [address] Care Team Providers Care Flake Or Shred Roll Operator Name Role Phone Unavailable Primary Care Provider Unavailabl e Encounter Details Date Type Department Care Team (Late st Contact Info) Description 08/06/1999 Outpatient Historical [facility],NON-PATIENT Social History Tobacco Use Types Packs/Day Years Used Date Smoking Tobacco: Never Assessed Comments Unknown Sex and Gender Information Value Date Recorded Sex Assigned at Not on file Legal Sex Female 3:[address] Gender Identity Not on file Sexual Orientation Not on file documented as of this encounter Plan of Treatment Not on file documented as of this encounter Visit Diagnoses Not on filedocumented in this encounter
--- OUTSIDE RECORDS SUMMARY | 2024-09-03 10:29 | XMS_ITS | Encounter Summary ---
Author Organization [facility] Address [address] Hong: Epic Prelude ADT [place] [address] Care Team Providers Care Body Coverer Name Role Phone Unavailable Primary Care Provider Unavailabl e Encounter Details Date Type Department Care Team (Late st Contact Info) Description 07/15/1994 Outpatient Historical Conversion, History Social History Tobacco Use Types Packs/Day Years Used Date Smoking Tobacco: Never Assessed Comments Unknown Sex and Gender Information Value Date Recorded Sex Assigned at Not on file Legal Sex Female 3:30 AM SHOT EXAMINER Gender Identity Not on file Sexual Orientation Not on file documented as of this encounter Plan of Treatment Not on file documented as of this encounter Visit Diagnoses Not on filedocumented in this encounter
--- OUTSIDE RECORDS SUMMARY | 2024-09-03 10:29 | XMS_ITS | Clinical Summary ---
Author Organization [facility] Address [address] [place] [address]. [place] [address] [place] [address] Care Team Providers Care Machine Coremaker Name Role Phone Unavailable Primary Care Provider [...]
--- OUTSIDE RECORDS SUMMARY | 2024-09-03 10:29 | XMS_ITS | Encounter Summary ---
Author Organization [facility] Address [address] Hong: Epic Prelude ADT [place] [address] Care Team Providers Care Weir Fisher Name Role Phone Unavailable Primary Care Provider Unavailabl e Encounter Details Date Type Department Care Team (Late st Contact Info) Description 10/04/1996 Outpatient Historical Conversion, History Social History Tobacco Use Types Packs/Day Years Used Date Smoking Tobacco: Never Assessed Comments Unknown Sex and Gender Information Value Date Recorded Sex Assigned at Not on file Legal Sex Female 3:30 AM KNITTING TESTER Gender Identity Not on file Sexual Orientation Not on file documented as of this encounter Plan of Treatment Not on file documented as of this encounter Visit Diagnoses Not on filedocumented in this encounter
--- OUTSIDE RECORDS SUMMARY | 2024-09-03 10:29 | XMS_ITS | Encounter Summary ---
Author Organization [employer] Address [address] [place] [address] Care Team Providers Care Impression Printer Name Role Phone Unavailable Primary Care Provider Unavailabl e Encounter Details Date Type Department Care Team (Late st Contact Info) Description 12/17/1999 Outpatient Historical HIS LAB,NON-PATIENT Social History Tobacco Use Types Packs/Day Years Used Date Smoking Tobacco: Never Assessed Comments Unknown Sex and Gender Information Value Date Recorded Sex Assigned at Not on file Legal Sex Female 3:30 AM MANAGEMENT CONSULTING Gender Identity Not on file Sexual Orientation Not on file documented as of this encounter Plan of Treatment Not on file documented as of this encounter Visit Diagnoses Not on filedocumented in this encounter
--- OUTSIDE RECORDS SUMMARY | 2024-09-03 10:29 | XMS_ITS | Encounter Summary ---
Author Organization [employer] Address [address] [place] [address] Care Team Providers Care Custom Furrier Name Role Phone Unavailable Primary Care Provider Unavailabl e Encounter Details Date Type Department Care Team (Late st Contact Info) Description 09/17/1999 Outpatient Historical HIS LAB,NON-PATIENT Social History Tobacco Use Types Packs/Day Years Used Date Smoking Tobacco: Never Assessed Comments Unknown Sex and Gender Information Value Date Recorded Sex Assigned at Not on file Legal Sex Female 3:30 AM EQUIPMENT RECORDS SUPERVISOR Gender Identity Not on file Sexual Orientation Not on file documented as of this encounter Plan of Treatment Not on file documented as of this encounter Visit Diagnoses Not on filedocumented in this encounter
--- OUTSIDE RECORDS SUMMARY | 2024-09-03 10:29 | XMS_ITS | Patient Health Summary ---
Author Organization [facility] Address [address] [place] [address] Care Team Providers Care Rustic Terrazzo Setter Name Role Phone Lady Avila MD Primary Care Provider [phone]- [phone] Lady Avila MD Unavailable [phone] Note from [facility],non-owned Affiliates and Associated Physician Practices is amultiple site organization consisting of ambulatory clinics and hospital sitesin [place], [place], [place] and [place]. This disclosure is being madepursuant to the Care Everywhere program and may not contain all information available regarding this patient. Last updated 18.[facility] Allergies No known active allergies Medications * Be aware that medications may not be up to date on this document. Alwaysverify current medications with the patient. * naproxen sodium (Aleve) 220 MG tablet Take 1 (one) tablet by mouth 2 times daily * vitamin D, ergocalciferol, (Drisdol) 1.25 MG (14564 UT) capsule(Started 03/08/2024) Take 1 (one) capsule [...] Resulting Agency Comment Lab Testing performed at: [email or web address] ??[facility] [id number] Lady Avila MD LAB - CHEMISTRY OR DERABLES [facility] ACCOUNT BILL [address] [place] [address] * VITAMIN B12 FOLATE PANEL (03/12/2024 4:10 PM CDT) Vitamin B12 567 232 - 1,245 pg/mL [facility] ACCOUNT BILL Folate 3.1 >3.0 ng/mL [facility] ACCOUNT BILL Comment: A serum folate concentration of less than 3.1 ng/mL is considered to represent clinical deficiency. Blood BLOOD SPECIMEN / Unknown 03/12/2024 4:10 PM CDT 03/12/2024 Narrative Resulting Agency Comment Lab Testing performed at: [facility] [address] ??[facility] [id number] Lady Avila MD LAB - CHEMISTRY OR DERABLES Performing Organization Address City/[facility]/ZIP Co de Phone Number [facility] ACCOUNT BILL [address] [place] [address] * (ABNORMAL) VITAMIN D 25-HYDROXY (03/06/2024 9:42 AM CDT) Vitamin D, 25 Hydroxy 20.2(L) 30.0 - 100.0 ng/mL [facility] ACCOUNT BILL Comment: Vitamin D deficiency has been defined by the [place] of Medicine and an Endocrine Society practice guideline as a level of serum 25-OH vitamin D less than 20 ng/mL (1,2). The Endocrine Society went on to further define vitamin D insufficiency as a level between 21 and 29 ng/mL (2). 1. IOM ([place] of Medicine). 2010. Dietary reference ?? intakes for calcium and D. Tran [place]: The ?? National AcademAll About Baby. Press. 2. Danuta MF, Bacilio CHIU, Fidel BAPTISTE, et al. ?? Evaluation, treatment, and prevention of vitamin D ?? deficiency: an Endocrine Society clinical practice ?? guideline. JCEM. 2010; 96(7):1911-30. Blood BLOOD SPECIMEN / Unknown 03/06/2024 9:42 AM CDT 03/06/2024 Narrative Resulting Agency Comment Lab Testing performed at: [facility] [address] ??[facility] [id number] Lady Avila MD LAB - CHEMISTRY OR DERABLES [facility] ACCOUNT BILL [address] [place] [address] * (ABNORMAL) CBC WITH DIFFERENTIAL (03/06/2024 9:42 [...] Resulting Agency Comment Lab Testing performed at: [facility] ??[facility] [id number] Lady Avila MD LAB - HEMATOLOGY O RDERABLES [facility] ACCOUNT BILL [address] [place] [address] * COMPREHENSIVE METABOLIC PANEL (03/06/2024 9:42 AM [...] Agency Comment Lab Testing performed at: [facility] [address] ??[facility] [id number] Lady Avila MD LAB - CHEMISTRY OR DERABLES [facility] ACCOUNT BILL [address] [place] [address] Care Teams Rustic Terrazzo Setter Relationship Specialty Start Date End Date Lady Avila MD [address] [address] PCP - General Family Medicine 03/06/24 Lady Avila MD [address] [phone] PCP - Attributed-[facility] 03/31/24
--- OUTSIDE RECORDS SUMMARY | 2024-09-03 10:29 | XMS_ITS | Encounter Summary ---
Author Organization [facility] Address [address] Hong: Epic Prelude ADT [place] [address] Care Team Providers Care Wheat Inspector Name Role Phone Unavailable Primary Care Provider Unavailabl e Encounter Details Date Type Department Care Team (Late st Contact Info) Description 08/02/1996 Outpatient Historical Conversion, History Social History Tobacco Use Types Packs/Day Years Used Date Smoking Tobacco: Never Assessed Comments Unknown Sex and Gender Information Value Date Recorded Sex Assigned at Not on file Legal Sex Female 3:30 AM GENERAL DOC Gender Identity Not on file Sexual Orientation Not on file documented as of this encounter Plan of Treatment Not on file documented as of this encounter Visit Diagnoses Not on filedocumented in this encounter
--- OUTSIDE RECORDS SUMMARY | 2024-09-03 10:29 | XMS_ITS | Encounter Summary ---
Author Organization [facility] Address [address] Hong: Epic Prelude ADT [place] [address] Care Team Providers Care Medical Laboratory Assistant Name Role Phone Unavailable Primary Care Provider Unavailabl e Encounter Details Date Type Department Care Team (Late st Contact Info) Description 11/15/1996 Outpatient Historical Conversion, History Social History Tobacco Use Types Packs/Day Years Used Date Smoking Tobacco: Never Assessed Comments Unknown Sex and Gender Information Value Date Recorded Sex Assigned at Not on file Legal Sex Female 3:30 AM DOCK GRADER Gender Identity Not on file Sexual Orientation Not on file documented as of this encounter Plan of Treatment Not on file documented as of this encounter Visit Diagnoses Not on filedocumented in this encounter
--- OUTSIDE RECORDS SUMMARY | 2024-09-03 10:29 | XMS_ITS | Encounter Summary ---
Author Organization [facility] Address [address] Hong: Epic Prelude ADT [place] [address] Care Team Providers Care Steamboat Pilot Name Role Phone Unavailable Primary Care Provider Unavailabl e Encounter Details Date Type Department Care Team (Late st Contact Info) Description 10/03/1997 Outpatient Historical Conversion, History Social History Tobacco Use Types Packs/Day Years Used Date Smoking Tobacco: Never Assessed Comments Unknown Sex and Gender Information Value Date Recorded Sex Assigned at Not on file Legal Sex Female 3:30 AM STICK PULLER Gender Identity Not on file Sexual Orientation Not on file documented as of this encounter Plan of Treatment Not on file documented as of this encounter Visit Diagnoses Not on filedocumented in this encounter
== END 2024-09-03 10:04 | disposition home or self-care (01) ==
LOC: ANHED 09:59
PROVIDERS: Emergency Provider Family Medicine; PCP Family Medicine
DX: J10.1 Influenza due to other identified influenza virus with other respiratory manifestations (principal); J02.0 Streptococcal pharyngitis; Z20.822 Contact with and (suspected) exposure to COVID-19
CPT/HCPCS: 87637; 87651; 96372; 99283; J1885

== ENCOUNTER 2025-05-01 10:32 | Emergency (ER) | payer OTHER, SELFPAY ==
[2025-05-01] VITALS (9 sets, daily range): BP systolic 105–132; BP diastolic 73–92; PULSE 65–82; RESP 11–24; TEMP 36.4; O2SAT 100
--- NOTE | ~2025-05-01 | CT_ITS ---
EXAMINATION: CT brain wo con COMPARISON: None HISTORY: syncope TECHNIQUE: Axial images were obtained through the brain without IV contrast. CT scan performed using dose optimization techniques including the following automated exposure control; adjustment of mA and/or kV; use of iterative reconstruction technique. Automatic exposure control was used to reduce radiation dose. Permanent radiation dose record is archived to PACS. FINDINGS: No acute infarct or parenchymal hemorrhage. No abnormal mass or mass effect. No midline shift. No extra-axial fluid collections. No hydrocephalus. . Mastoid air cells unremarkable. Sinuses and orbits unremarkable. No acute fracture. No significant facial or scalp soft tissue swelling evident. No radiopaque foreign body is seen. Impression: 1.No acute intracranial abnormality. Reviewed, dictated and finalized at location P. Impression: 1.No acute intracranial abnormality.
--- NOTE | ~2025-05-01 | XR_ITS ---
EXAMINATION: XR chest 1V, 05/01/2025 10:20 CDT HISTORY: syncope X TODAY COMPARISON: No comparisons available. Technique: Single view. Findings: The lungs are clear, no effusion. No pneumothorax. Heart is normal size. Mediastinal and hilar contours are within normal limits. Bony thorax no acute abnormality. Impression: No acute cardiopulmonary abnormality. Reviewed, dictated and finalized at location P. Impression: No acute cardiopulmonary abnormality.
--- NOTE | ~2025-05-01 | XR_ITS ---
Examination: XR chest 2V Clinical History: syncope/ANEMIA Comparison: None Technique: PA and Lateral Findings: Cardiomediastinal silhouette normal size and configuration. Lungs clear. No acute bony abnormality. IMPRESSION: 1. No acute cardiopulmonary findings. Reviewed, dictated and finalized at location R.
--- NOTE | 2025-05-01 10:42 | ECG_ITS ---
Test Date: 2025-05-01 10:41:56 Measurements Intervals [place] Rate: 67 P: -5 CO: 115 QRS: 60 QRSD: 98 T: 37 QT: 397 QTc: 422 Interpretive Statements SINUS RHYTHM WITH SHORT CO INTERVAL INCOMPLETE RIGHT BUNDLE BRANCH BLOCK BASELINE ARTIFACT- I, II, III, AVR, AVL, AVF BORDERLINE ECG No previous ECG available for comparison Electronically Signed On 05-01-2025 10:47:48 CDT by Drake Steven D.O.
[2025-05-01 10:56] LABS: Hematocrit 34.3 % (37.0-47.0); Hemoglobin 10.6 g/dL (12.0-15.0); Immature Granulocyte Percent A 0.4 % (0-0.5); Lymphocytes Absolute Auto 1.87 K/mm3 (0.9-3.2); Mean Corpuscular HGB Conc 30.9 g/dl (32-36); Mean Corpuscular Hemoglobin 25.4 pg (26-34); Mean Corpuscular Volume 82.3 fl (80-100); Nucleated Red Blood Cells Absolute Auto 0.000 K/mm3 (0.0-0.012); Nucleated Red Blood Cells Perc 0.0 % (0.0-0.2); Platelet Count Result 297 k/mm3 (150-375); Red Blood Count 4.17 M/mm3 (4.2-5.4); White Blood Count 5.2 K/mm3 (4.5-10.0)
--- OUTSIDE RECORDS SUMMARY | 2025-05-01 11:04 | XMS_ITS | Encounter Summary ---
Author Organization [employer] Address [address] [place] [address] Care Team Providers Care Educational Interpreter Name Role Phone Unavailable Primary Care Provider Unavailabl e Encounter Details Date Type Department Care Team (Late st Contact Info) Description 06/04/1999 Outpatient Historical HIS LAB,NON-PATIENT Social History Tobacco Use Types Packs/Day Years Used Date Smoking Tobacco: Never Assessed Comments Unknown Sex and Gender Information Value Date Recorded Sex Assigned at Not on file Legal Sex Female 3:30 AM FAIRING WORKER Gender Identity Not on file Sexual Orientation Not on file documented as of this encounter Plan of Treatment Not on file documented as of this encounter Visit Diagnoses Not on filedocumented in this encounter
--- OUTSIDE RECORDS SUMMARY | 2025-05-01 11:05 | XMS_ITS | Encounter Summary ---
Author Organization [employer] Address [address] [place] [address] Care Team Providers Care Dress Designer Name Role Phone Unavailable Primary Care Provider Unavailabl e Encounter Details Date Type Department Care Team (Late st Contact Info) Description 08/06/1999 Outpatient Historical HIS LAB,NON-PATIENT Social History Tobacco Use Types Packs/Day Years Used Date Smoking Tobacco: Never Assessed Comments Unknown Sex and Gender Information Value Date Recorded Sex Assigned at Not on file Legal Sex Female 3:30 AM COMPUTER SYSTEMS DESIGN ANALYST Gender Identity Not on file Sexual Orientation Not on file documented as of this encounter Plan of Treatment Not on file documented as of this encounter Visit Diagnoses Not on filedocumented in this encounter
--- OUTSIDE RECORDS SUMMARY | 2025-05-01 11:05 | XMS_ITS | Encounter Summary ---
Author Organization [facility] Address [address] Hong: Epic Prelude ADT [place] [address] Care Team Providers Care Safety Fire Boss Name Role Phone Unavailable Primary Care Provider Unavailabl e Encounter Details Date Type Department Care Team (Late st Contact Info) Description 09/02/1994 Outpatient Historical Conversion, History Social History Tobacco Use Types Packs/Day Years Used Date Smoking Tobacco: Never Assessed Comments Unknown Sex and Gender Information Value Date Recorded Sex Assigned at Not on file Legal Sex Female 3:30 AM GLOBAL CLINICAL LEADER Gender Identity Not on file Sexual Orientation Not on file documented as of this encounter Plan of Treatment Not on file documented as of this encounter Visit Diagnoses Not on filedocumented in this encounter
--- OUTSIDE RECORDS SUMMARY | 2025-05-01 11:05 | XMS_ITS | Data Portability ---
Author Organization [facility] [place] Address [address] [address] Assessment Encounter Date Assessment Date Assessment LastModified [...] 11.5-1 5.5 low Not Available [facility] ([facility]) [address], [place], [address], 01/20/2020 13:18:37 01/17/20 20 01/18/2020 clnt restr ict - [place] 28 week/ OB 50 panel hematocrit (HCT) 26.4 % 35.2-4 6.4 low Not Available [facility] ([facility]) [facility], [place], [address], 01/20/2020 13:18:37 01/17/20 20 01/18/2020 clnt restr [...] is recom hyun d. Not Available [facility] ([facility]) [facility], [place], [address], 01/20/2020 13:18:37 01/17/20 20 01/18/2020 clnt restr ict - [place] 28 week/ OB 50 panel HIV 1/2 Ab screen w/p24ag Nonrea ctive nonrea ctive Not Available [facility] ([facility]) [address] [place] [address] [address], [place], [address], 01/20/2020 13:18:37 01/17/20 20 01/20/2020 clnt restr ict - [place] 28 week/ OB 50 panel RPR (non-trepone mal) reflex to confirmation Nonrea ctive nonrea ctive Not Available [facility] ([facility]) [address] [place] [address] [address], [place], [address], 01/20/2020 13:18:37 03/09/20 20 03/11/2020 strep tococ cus group B DNA GB specimen source Vagina l/Rect al Not Available [facility] ([facility]) [address], [place], [address], 03/11/2020 09:56:34 03/09/20 20 03/11/2020 strep tococ cus group B DNA spec type Cultur e Swab Not Available [facility]) [address], [place], [address], 03/11/2020 09:56:34 03/09/20 20 03/11/2020 strep tococ cus group B DNA group [...] logis ts, LLC, d/b/a Ashish nunes, [address] [facility], [place] [address] , Oleg Dodson ra, DO, Labor atory Direc tor. Not Available [facility]) [address], [place], [address], 03/11/2020 09:56:34 08/27/19 21 08/27/2020 US, obste tric, 2nd or 3rd ladane antonia romero interpretati on Not Available [facility] [address], [place], [address], 12/02/2019 12:38:49 Result Notes None recorded. Problems Name Problem SNOMED Code Status Onset Date Resolution Date Notes Provider Name and Address Organization Details Recorded Time Speciali zed medical examinat ion Active 2010 Routine gynecolo gical examinat ion;Prac ting ID: 0001 Not Available [facility] 0 18:29:33 Screenin g for malignan t neoplasm of cervix Active 2010 Pap Smear;Pr actice ID: 0001 Not Available [facility] 0 18:29:33 Poor growth affectin g manageme nt 645130256 Active 2014 Poor growth, affectin g manageme nt of mother, antepart um conditio n or complica tion;Rec orded Elsewher e: No Locat ion: [facility] S ource: EHR Wellness Coach steffany: N Practi ce ID: 0001 Casey lable Time: 11:30:00 AM Not Available [facility] 0 18:29:32 Primigra zully 801267514 Active 2014 Supervis ion of normal first pregnanc y;Record ed Elsewher e: No Locat ion: [facility] S ource: EHR Wellness Coach steffany: N Practi ce ID: 0001 Casey lable Time: 02:15:00 PM Not Available [facility] 0 18:29:30 Labor and delivery complica gina by heart rate anomaly 670167087 Active 2014 ABNORMAL ITY IN HEART RATE OR RHYTHM, ANTEPART UM;Recor ded Elsewher e: No Locat ion: [facility] S ource: EHR Wellness Coach steffany: N Practi ce ID: 0001 Casey lable Time: 02:15:00 PM Not Available [facility] 0 18:29:31 Delivery normal 51846046 Active 2014 Normal delivery ;Practic e ID: 0001 Not Available [facility] 0 18:29:34 Single live from singleto n pregnanc y 499575227 Active 2014 Mother with single liveborn ;Practic e ID: 0001 Not Available [facility] 0 18:29:34 Postpart um care Active 2014 Post Followup ;Recorde d Elsewher e: No Locat ion: Sommer venegas [facility] S ource: EHR Wellness Coach steffany: N Practi ce ID: 0001 Casey lable Time: 11:00:00 AM Not Available [facility] 0 18:29:33 Urinary tract infectio us disease 17180512 Active 2014 Urinary tract infectio n, site not specifie d;Practi ce ID: 0001 Not Available [facility] 0 18:29:29 Microsco pic hematuri a 781356247 Active 2014 MICROSCO PIC HEMATURI A;Practi ce ID: 0001 Not Available [facility] 0 18:29:30 Leukocyt osis 442326091 Active 2014 LEUKOCYT OSIS NOS;Gallito rded Elsewher e: No Locat ion: Sommer venegas [facility] S ource: EHR Wellness Coach steffany: N Practi ce ID: 0001 Casey lable Time: 03:15:00 PM Not Available [facility] 0 18:29:[address] Concept Active 2014 Encntr for periodontal assistant exam (general ) (routine ) w/o abn findings ;Practic e ID: 0001 Not Available [facility] 0 18:29:[address] Concept Active 2014 Encntr for general adult medical exam w/o abnormal findings ;Recorde d Elsewher e: No [facility] S ource: EHR Wellness Coach steffany: N Practi ce ID: 0001 Casey lable Time: 11:30:00 AM Not Available [facility] 0 18:[facility]:[address] Concept Active 2014 Encounte r for surveill ance of other contrace ptives;P ractice ID: 0001 Not Available [facility] 0 18:29:30 Pregnanc y test negative 016207411 Active 2014 Encounte r for pregnanc y test, result negative ;Practic e ID: 0001 Not Available [facility] 0 18:29:30 Atypical squamous cells of undeterm ined signific ance on cervical Papanico laou smear 789333373 Active 2015 Atyp squam cell of undet signfc cyto smr crvx (ASC-US) ;Practic e ID: 0001 Not Available [facility] 0 18:29:30 Procedur e by method Active 2018 Encounte r for other general counseli ng and advice on contrace ption;Re corded Elsewher e: No Locat ion: [facility] S ource: EHR Wellness Coach steffany: N Practi ce ID: 0001 Casey lable Time: 11:30:00 AM Not Available [facility] 0 18:29:31 Antenata l screenin g Active 2019 Encounte r for antenata l screenin g for uncertai n dates;Pr actice ID: 0001 Not Available [facility] 0 18:29:30 Normal pregnanc y in multigra zully 72443084511 4106 Active 2019 Encounte r for suprvsn of normal pregnanc y, second trimeste r;Hermanti ce ID: 0001 Not Available [facility] 0 18:29:30 Rheumato id arthriti s 56990488 Active 2019 See 01/29 note below - Waiting to see MFM until insuranc e is active! Had consult with MFM in 2013 pregnanc y and they just recommen ded getting establis hed with rheumato logist for possible pp flare, but need up to date consult. Deedee Hassan [facility], [facility] 1 17:19:22 Rheumato id arthriti s [id number] Completed 2019 See 01/29 note below - Waiting to see MFM until insuranc e is active! Had consult with MFM in 2013 pregnanc y and they just recommen ded getting establis hed with rheumato logist for possible pp flare, but need up to date consult. Deedee lomeli [facility] 1 17:19:22 Pregnanc y 23322755 Completed 201908/06/2020 Deedee lomeli [facility] 1 17:19:27 Problem Notes None recorded. Procedures Surgical History Date Name Laterality Status Provider Name and Address Organization Details Recorded Time 1 Appendectomy completed Sirena Thurston [facility] 11/29/2019 16:52:27 Imaging Results None recorded. Procedure Notes None recorded. Medical Equipment None Reported. Medications Name Sig Start Date Stop Date Status Note LastModified by Organization Details LastModified Time Macrobid 100 mg capsule take 1 capsule by oral route every 12 hours with food, as directed 07/07 completed Prescrib ed Elsewher e: No Locat ion: [facility] odify By: case Venegas ncounter DateTime : 03/27/20 15 03:15:00 PM Not Available Not Available Not Available Vitamin D2 1,250 mcg (50,000 unit) capsule take 1 capsule by oral route every week 02/17 completed Prescrib ed Elsewher e: No Locat ion: [facility] odify By: case Venegas ncounter DateTime : 11/21/19 15 02:08:08 PM Not Available Not Available Not Available Ortho Tri-Cycle n (28) 0.18 mg(7)/0.2 15mg(7)/0 .25 mg(7)-0.0 35 mg tablet take 1 tablet by oral route every day 07/07 completed Prescrib ed Elsewher e: No Locat ion: [facility] odify By: case Venegas ncounter DateTime : 02/18/20 15 11:00:00 AM Not Available Not Available Not Available Bactrim DS 800 mg-160 mg tablet take 1 tablet by oral route every 12 hours 07/07 completed Prescrib ed Elsewher e: No Locat ion: [facility] odify By: case treviñounter DateTime : 04/01/20 15 02:11:20 PM Not Available Not Available Not Available Microgest in Fe 1.5/30 (28) 1.5 mg-30 mcg (21)/75 mg (7) tablet take 1 tablet by oral route every day 10/23 completed Prescrib ed Elsewher e: No Locat ion: Sommer venegas [facility] odify By: tomy monge DateTime : 10/20/19 19 11:30:00 AM Not Available Not Available Not Available iron ER 325 mg (65 mg iron) capsule,e xtended release take 1 Tablet by Oral route 3 times every day 03/27 completed Prescrib ed Elsewher e: Yes Loca tion: Sommer venegas [facility] odify By: case treviñounter DateTime : 02/18/20 15 11:00:00 AM Not Available Not Available Not Available 12/29 completed Not Available Not Available Not Available Panchito norman Multi-Vit Gummies active Not Available Not Available Not Available Nexplanon 68 mg subdermal implant 10/19 completed Prescrib ed Elsewher e: Yes Loca tion: Sommer venegas [facility] odify By: tomy monge DateTime : 02/08/20 16 09:00:00 AM Not Available Not Available Not Available Vitals Date Recorded Body height Body mass index (BMI) Body weight Systolic And Diastolic Provider Name and Address Organization Details Last Updated DateTime 02/13/2020 163.83 cm 25.5 kg/m2 91912.447 87 g 106/67 mm[Hg] Sirena Thurston [facility] 02/13/2020 12:45:15 Date Recorded Body height Body mass index (BMI) Body weight Systolic And Diastolic Provider Name and Address Organization Details Last Updated DateTime 02/28/2020 163.83 cm 25.7 kg/m2 01023.040 24 g 105/71 mm[Hg] Maia Reaves [facility] 02/28/2020 11:37:59 Date Recorded Body height Body mass index (BMI) Body weight Systolic And Diastolic Provider Name and Address Organization Details Last Updated DateTime 03/09/2020 163.83 cm 26 kg/m2 31141.224 98 g 117/80 mm[Hg] [facility] 03/09/2020 17:16:47 Date Recorded Body height Body mass index (BMI) Body weight Systolic And Diastolic Provider Name and Address Organization Details Last Updated DateTime 03/20/2020 163.83 cm 26.4 kg/m2 62698.409 72 g 112/63 mm[Hg] [facility] 03/20/2020 12:57:33 Date Recorded Body height Body mass index (BMI) Body weight Systolic And Diastolic Provider Name and Address Organization Details Last Updated DateTime 03/25/2020 163.83 cm 26.7 kg/m2 87243.594 46 g 110/75 mm[Hg] [facility] 03/25/2020 16:14:05 Social History None recorded. Functional Status Question Answer Note LastModified by [employer] Details LastModified Time What is your level of alcohol consumption? None Information not available 12/02/2019 What is your exercise level? Occasional Information [...] Diagnosis SNOMED-CT Code Diagnosis ICD10 Code Diagnosis IMO Codes Diagnosis Note 2893 Cain Young MD [place] [address] [address] 12/02/2019 11:17:32 12/02/2019 13:29:10 screening for malformation 853294145 Z36.3 2894 Yeni Shepherd CNM [place] [address] [address] 12/02/2019 11:22:47 12/02/2019 13:16:55 Routine care 105788964 Z34.92 6071 Yeni Shepherd [facility] [address],[place] [address] 12/30/2019 14:20:37 12/30/2019 15:28:12 Routine care 196367874 Z34.92 8650 MD [place] [facility] [address],[place] [address] 01/17/2020 10:35:21 01/17/2020 11:34:38 Routine care 988245108 Z34.83 28627 MD [place] [facility] [address],[place] [address] 01/30/2020 12:15:12 01/30/2020 13:22:11 screening 929874943 Z36.89 56906 Yeni Shepherd [facility] [address],[place] [address] 02/13/2020 12:40:47 02/13/2020 13:31:22 Routine care 868552179 Z34.92 44880 MD [place] [facility] [address],[place] [address] 02/28/2020 11:27:51 02/28/2020 12:13:46 Routine care 009583947 Z34.83 06601 MD [place] [facility] [address],[place] [address] 03/09/2020 17:04:09 03/09/2020 17:52:44 Routine care 030037517 Z34.83 77616 MD [place] [facility] [address],[place] [address] 03/20/2020 12:38:49 03/23/2020 00:03:56 Routine care 017428843 Z34.83 95319 MD [place] [facility] [address],[place] [address] 03/25/2020 16:09:06 03/25/2020 16:27:30 Routine care 062949584 Z34.83 Health Concerns Section Related Observation LastModified by Organization Detai ls LastModified Time None Recorded Concern Status LastModified by Organization Details LastModified Time None Recorded Advance Directives Directive None Recorded Payers Insurance Date Sequence Insurance Name Policy Number Policy Hairston Covered Member ID Hairston Member ID Guarantor Name 03/20/2020 1 *SELF PAY* Comfort Hwang 03/31/2020 1 [place] [facility] Jacky Hwang [id number] Jacky Hwang Notes Date Note Type Note Provider Name and Address Organization Details Recorded Time 02/13/2020 text/html Generic HPI TemplateReported by Patient Yeni lomeli, [facility] 02/13/2020 14:01:41 02/28/2020 text/html Generic HPI TemplateReported by Patient Cain Young MD [address], [place], [address], [facility] 02/28/2020 12:10:46 03/09/2020 text/html Generic HPI TemplateReported by Patient Cain Young MD [address], [place], [address], [facility] 03/09/2020 17:52:29 03/20/2020 text/html Generic HPI TemplateReported by Patient Cain Young MD [address], [place], [address], [facility] 03/20/2020 17:11:26 03/25/2020 text/html Generic HPI TemplateReported by Patient Cain Young MD [address], [place], [address], [facility] 03/25/2020 16:25:14 OBGyn Episode Ob Episode Information Episode Created Date Number of Fetuses Patient Bloodtype Patient rh Status Prepregnancy Weight lbs Domestic Partner Domestic Partner Phone Father Name Bladder Trimmer Status 12/02/19 20 1 O Positive 122 CLOSED Fetus Data First Name Last Name Admitted to NICU Weight (g) Sex Living Outcome Pediatric Complications Fetus ID Race Codes Race Delivery Type 3401.94 M true Full Term with 1 pop off 1094 Vaginal Delivery Problems Problem Notes Problem Name Start Date End Date Resolution Snomed Code Not e Rheumatoid arthritis 11/28/2019 97748145 See 01/29 note be low - Waiting to see MFM until insurance is active! Had consult with MFM in 2014 and they just recommended getting established with process line operator for possible pp flare, but need up [...] Weight in lbs Pre/Post Dialysis Refused Weight 132.535649516310 BP Diastolic BP Location Tested BP Systolic BP Type 89 127 Fetus Heart Rate Present A 150 Fetus Movement A Yes Comments Flowsheet Date 10/10/2019 Patel Score Blood Edema Fundus Height Fundus Units Glucose Ketones Leukocytes Nitrite Labor Signs Protein Cervic Dilation Cervic Effacement Cervic Station trace 14 trace Type Weight in lbs Pre/Post Dialysis Refused Weight 102.232954258516 BP Diastolic BP Location Tested BP Systolic [...] with some joint deformity. She will see MF for level 2 ultrasound and consult. Flowsheet Date 10/24/2019 Patel Score Blood Edema Fundus Height Fundus Units Glucose Ketones Leukocytes Nitrite Labor Signs Protein Cervic Dilation Cervic Effacement Cervic Station none trace Type Weight in lbs Pre/Post Dialysis Refused Weight 123.169512673129 BP Diastolic BP Location Tested BP Systolic BP Type 79 112 sitting Fetus Heart Rate Present A 150 Fetus Movement A No Comments OB [id number] pt states that tanner ving normal discharge.Gender u/s today. Pt is not finding out until next week. Flowsheet Date 12/30/2019 Patel Score Blood Edema Fundus Height Fundus Units Glucose Ketones Leukocytes Nitrite Labor Signs Protein Cervic Dilation Cervic Effacement Cervic Station none 26 trace Type Weight in lbs Pre/Post Dialysis Refused Weight 139.849594126519 BP Diastolic BP Location Tested BP Systolic [...] Weight in lbs Pre/Post Dialysis Refused Weight 144.991430904247 BP Diastolic BP Location Tested BP Systolic [...] Weight in lbs Pre/Post Dialysis Refused Weight 147.038572936872 BP Diastolic BP Location Tested BP Systolic BP Type 66 104 Fetus Heart Rate Present A 145 Fetus Movement A Yes Comments Patient has an appoint [facility] to get insurance, she does not have a process line operator that she is established with. She is [...] Weight in lbs Pre/Post Dialysis Refused Weight 151.788380232419 BP Diastolic BP Location Tested BP Systolic BP Type 67 L arm 106 sitting Fetus Heart Rate Present Fetus Movement Comments Pt doing well. Will call tod ay to schedule pre admit. Flowsheet Date 02/28/2020 Patel Score Blood Edema Fundus Height Fundus Units Glucose Ketones Leukocytes Nitrite Labor Signs Protein Cervic Dilation Cervic Effacement Cervic Station 35 Type Weight in lbs Pre/Post Dialysis Refused Weight 152.356931164889 BP Diastolic BP Location Tested BP Systolic BP Type 71 105 Fetus Heart Rate Present A 145 Fetus Movement A Yes Comments Flowsheet Date 03/09/2020 Patel Score Blood Edema Fundus Height Fundus Units Glucose Ketones Leukocytes Nitrite Labor Signs Protein Cervic Dilation Cervic Effacement Cervic Station 36 trace Type Weight in lbs Pre/Post Dialysis Refused Weight 154.488375911167 BP Diastolic BP Location Tested BP Systolic BP Type 80 117 Fetus Heart Rate Present A 145 Fetus Movement A Yes Comments Flowsheet Date 03/20/2020 Patel Score Blood Edema Fundus Height Fundus Units Glucose Ketones Leukocytes Nitrite Labor Signs Protein Cervic Dilation Cervic Effacement Cervic Station 36 trace Type Weight in lbs Pre/Post Dialysis Refused Weight 156.255083872136 BP Diastolic BP Location Tested BP Systolic [...] Weight in lbs Pre/Post Dialysis Refused Weight 158.399041917751 BP Diastolic BP Location Tested BP Systolic [...] Estim ated Date of Delivery false Thalassemia (Irish, Welsh, Mediterranean, Or Background): MCV < 80 false Neural Tube Defect (Meningomyelocele, Spina Bifi da, Or Anencephaly) false Congenital Heart Defect false Down Syndrome false Ruben-Sachs (eg, Jehovah'S Witness, Cajun, Citizen Of [place]) f alse Latrell Disease false Sickle Cell Disease Or Trait () false Hemophilia Or Other Blood Disorders false Muscular Dystrophy false Cystic Fibrosis false Lowndes's Chorea false Intellectual Disability/Autism false If Yes, [...] Domestic Partner Domestic Partner Phone Father Name Bladder Trimmer Status 12/02/19 20 1 CLOSED Fetus Data [...] Domestic Partner Domestic Partner Phone Father Name Bladder Trimmer Status 04/08/20 20 1 DELETED Jair Calculation [...]
--- OUTSIDE RECORDS SUMMARY | 2025-05-01 11:05 | XMS_ITS | Encounter Summary ---
Author Organization [facility] Address [address] Hong: Epic Prelude ADT [place] [address] Care Team Providers Care 911 Operator Name Role Phone Unavailable Primary Care Provider Unavailabl e Encounter Details Date Type Department Care Team (Late st Contact Info) Description 10/13/1995 Outpatient Historical Conversion, History Social History Tobacco Use Types Packs/Day Years Used Date Smoking Tobacco: Never Assessed Comments Unknown Sex and Gender Information Value Date Recorded Sex Assigned at Not on file Legal Sex Female 3:30 AM MOTOR RACER Gender Identity Not on file Sexual Orientation Not on file documented as of this encounter Plan of Treatment Not on file documented as of this encounter Visit Diagnoses Not on filedocumented in this encounter
--- OUTSIDE RECORDS SUMMARY | 2025-05-01 11:05 | XMS_ITS | Encounter Summary ---
Author Organization [facility] Address [address] [place] [address] Care Team Providers Care Basket Assembler Name Role Phone Unavailable Primary Care Provider Unavailabl e Encounter Details Date Type Department Care Team (Late st Contact Info) Description 08/06/1999 Outpatient Historical [facility],NON-PATIENT Social History Tobacco Use Types Packs/Day Years Used Date Smoking Tobacco: Never Assessed Comments Unknown Sex and Gender Information Value Date Recorded Sex Assigned at Not on file Legal Sex Female 3:30 AM PROBATE JUDGE Gender Identity Not on file Sexual Orientation Not on file documented as of this encounter Plan of Treatment Not on file documented as of this encounter Visit Diagnoses Not on filedocumented in this encounter
--- OUTSIDE RECORDS SUMMARY | 2025-05-01 11:05 | XMS_ITS | Encounter Summary ---
Author Organization [facility] Address [address] [place]: Epic Prelude ADT [place] [address] Care Team Providers Care Aquatics Assistant Department Head Name Role Phone Unavailable Primary Care Provider Unavailabl e Encounter Details Date Type Department Care Team (Late st Contact Info) Description 11/15/1996 Outpatient Historical Conversion, History Social History Tobacco Use Types Packs/Day Years Used Date Smoking Tobacco: Never Assessed Comments Unknown Sex and Gender Information Value Date Recorded Sex Assigned at Not on file Legal Sex Female 3:30 AM LEGAL DOCUMENT ASSISTANT Gender Identity Not on file Sexual Orientation Not on file documented as of this encounter Plan of Treatment Not on file documented as of this encounter Visit Diagnoses Not on filedocumented in this encounter
--- OUTSIDE RECORDS SUMMARY | 2025-05-01 11:05 | XMS_ITS | Encounter Summary ---
Author Organization [facility] Address [address] [place]: Epic Prelude ADT [place] [address] Care Team Providers Care Sausage Tier Name Role Phone Unavailable Primary Care Provider Unavailabl e Encounter Details Date Type Department Care Team (Late st Contact Info) Description 06/14/1996 Outpatient Historical Conversion, History Social History Tobacco Use Types Packs/Day Years Used Date Smoking Tobacco: Never Assessed Comments Unknown Sex and Gender Information Value Date Recorded Sex Assigned at Not on file Legal Sex Female 3:30 AM PROJECT MANAGER INDUSTRIAL Gender Identity Not on file Sexual Orientation Not on file documented as of this encounter Plan of Treatment Not on file documented as of this encounter Visit Diagnoses Not on filedocumented in this encounter
--- OUTSIDE RECORDS SUMMARY | 2025-05-01 11:05 | XMS_ITS | Encounter Summary ---
Author Organization [facility] Address [address] Hong: Epic Prelude ADT [place] [address] Care Team Providers Care Brine Tank Operator Name Role Phone Unavailable Primary Care Provider Unavailabl e Encounter Details Date Type Department Care Team (Late st Contact Info) Description 04/15/1994 Outpatient Historical Conversion, History Social History Tobacco Use Types Packs/Day Years Used Date Smoking Tobacco: Never Assessed Comments Unknown Sex and Gender Information Value Date Recorded Sex Assigned at Not on file Legal Sex Female 3:30 AM MATERIALS ASSOCIATE Gender Identity Not on file Sexual Orientation Not on file documented as of this encounter Plan of Treatment Not on file documented as of this encounter Visit Diagnoses Not on filedocumented in this encounter
--- OUTSIDE RECORDS SUMMARY | 2025-05-01 11:05 | XMS_ITS | Encounter Summary ---
Author Organization [facility] Address [address] Hong: Epic Prelude ADT [place] [address] Care Team Providers Care Redrawer Name Role Phone Unavailable Primary Care Provider Unavailabl e Encounter Details Date Type Department Care Team (Late st Contact Info) Description 08/02/1996 Outpatient Historical Conversion, History Social History Tobacco Use Types Packs/Day Years Used Date Smoking Tobacco: Never Assessed Comments Unknown Sex and Gender Information Value Date Recorded Sex Assigned at Not on file Legal Sex Female 3:30 AM PHYSICIAN/OPHTHALMOLOGIST Gender Identity Not on file Sexual Orientation Not on file documented as of this encounter Plan of Treatment Not on file documented as of this encounter Visit Diagnoses Not on filedocumented in this encounter
--- OUTSIDE RECORDS SUMMARY | 2025-05-01 11:05 | XMS_ITS | Encounter Summary ---
Author Organization [facility] Address [address] Hong: Epic Prelude ADT [place] [address] Care Team Providers Care Specialty Department Supervisor Name Role Phone Unavailable Primary Care Provider Unavailabl e Encounter Details Date Type Department Care Team (Late st Contact Info) Description 10/03/1997 Outpatient Historical Conversion, History Social History Tobacco Use Types Packs/Day Years Used Date Smoking Tobacco: Never Assessed Comments Unknown Sex and Gender Information Value Date Recorded Sex Assigned at Not on file Legal Sex Female 3:30 AM CANCER SPEC Gender Identity Not on file Sexual Orientation Not on file documented as of this encounter Plan of Treatment Not on file documented as of this encounter Visit Diagnoses Not on filedocumented in this encounter
--- OUTSIDE RECORDS SUMMARY | 2025-05-01 11:05 | XMS_ITS | Clinical Summary ---
Author Organization [email or web address] Address [address] [place] [address] Care Team Providers Care Credit Review Officer Name Role Phone Lady Avila MD Primary Care Provider [phone] Lady Avila MD Unavailable [phone] Anjelica Joseph Unavailable [phone] Source Comments [facility],non-owned Affiliates and Associated Physician Practices is amultiple site organization consisting of ambulatory clinics and hospital sitesin [place], [place], [place] and [place]. This disclosure is being madepursuant to the Care Everywhere program and may not contain all information available regarding this patient. Last updated 18.[facility] [email or web address] Allergies No known active allergies Medications * Be aware that medications may not be up to date on this document. Alwaysverify current medications with the patient. naproxen sodium (Aleve) 220 MG tablet Take 1 (one) tablet by mouth 2 times daily Active ferrous sulfate 325 (65 FE) MG tabletIndicatio ns:Anemia, unspecified type,Iron deficiency anemia, unspecified iron deficiency anemia type Take 1 (one) tablet by mouth 2 times daily with morning and evening meal for 30 days, THEN 1 (one) tablet daily with breakfast for 60 days. 120 tablet 5 07/28/20 25 Active vitamin D, ergocalciferol, (Drisdol) 1.25 MG (93022 UT) capsuleIndicati ons:Vitamin D deficiency disease Take 1 (one) capsule by mouth every 7 days (once a week) 12 capsule 5 Active vitamin D, ergocalciferol, (Drisdol) 1.25 MG (41933 UT) capsule Take 1 (one) capsule by mouth every 7 days 12 capsule 4 04/29/20 25 Discontinu ed(Reorder ) ferrous sulfate 325 (65 FE) MG tablet Take 1 (one) tablet by mouth 2 times daily with morning and evening meal for 30 days, THEN 1 (one) tablet daily with breakfast for 60 days. 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 OTC NSAID p.r.n.. H/O juvenile rheumatoid arthritis 07/16/2018 Overview (11/18/2019): With joint deformity Polyarthralgia 07/16/2018 Abnormal auditory perception 05/22/2018 Vitamin D deficiency disease 06/02/2013 Resolved Problems Problem Noted Date Diagnosed Date Resolved Date Supervision of high-risk pre gnancy of young multigravida 11/18/2019 03/21/2024 Overview (11/18/2019): O+ Neg/ Imm/ rpr-NR/Hbsag-NR/HIV-NR/Hep C-Neg [id number] HH 11.3/33.1/ [id number] Inflammatory arthritis 07/16/201803/21 JRA (juvenile rheumatoid arthritis) 05/20/2018 03/21/2024 test negative 07/26/201503/01 Overview (03/06/2024): Encounter for test, result negative;Practice ID: [id number] Leukocytosis 03/27/2015 03/21/2024 Overview (03/06/2024): LEUKOCYTOSIS NOS;Recorded Elsewhere: No Location: [facility] Source: EHR Chronic: N Practice ID: [...] of normal first ;Recorded Elsewhere: No Location: [facility] Source: EHR Chronic: N Practice ID: [id number] Billable Time: 02:15:00 PM Intrauterine growth restrict ion (IUGR) affecting care of mother 12/24/2014 03/21/2024 Overview (03/06/2024): Poor growth, affecting management of mother, antepartum condition or complication;Recorded Elsewhere: No Location: [facility] Source: EHR Chronic: N Practice ID: [id number] Billable Time: 11:30:00 AM Encounters Date Type Department Care Team Description 04/30/2025 Results Follow-Up [facility] - Family Medicine [address] [place] [phone] Marian Novak APRN-CNP 04/29/2025 1:30 PM CDT Office Visit [facility] [address] [place] [phone] Marian Novak APRN-CNP Intractable migraine without status migrainosus, unspecified migraine type (Primary Dx); Anemia, unspecified type; Iron deficiency anemia, unspecified iron deficiency anemia type; Vitamin D deficiency disease 04/22/2025 Refill [facility] [address], [address] [place] [phone] Lady Avila MD MEDICATION REFILL from Last 3 Months Immunizations Immunization Administration Dates Next Due FLU VACCINE TRI IIV3 SPLIT PF IM (FLUVIRIN) 07/2012 INFLUENZA VACCINE 06/26/2024 TDAP, HISTORIC VACCINE 01/23/2015 Family History Medical History Relation Name Comments Hypertension Mother Relation Name Status Comments Mother Social History Tobacco Use Types Packs/Day Years Used Date Smoking Tobacco: Former Cigarettes 0.3 6 Smokeless Tobacco: Never Alcohol Use Standard Drinks/Week Comments Yes 0 (1 standard drink = 0.6 oz pur e alcohol) PHQ-2 Answer Date Recorded Patient Health Questionnaire-2 Score 0 04/26/2025 Comments No Sex and Gender Information Value Date Recorded Sex Assigned at Female 02/09/2024 9:51 AM CDT Legal Sex Female 12:37 PM CDT Gender Identity Female 02/09/2024 9:51 AM CDT Sexual Orientation Not on file 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 - Pulmonology [address] [place] [address] Marian Novak, PRINT JOURNALIST-CLIENT SERVICES SPECIALIST [address] [place] [address] José Antonio Osborne MD [address] [place] [address] 05/29/2025 10:30 AM CDT Office Visit [facility] - Family Medicine [address] [facility] [address] [place] [phone] Marian Novak, PRINT JOURNALIST-CLIENT SERVICES SPECIALIST [address] [facility] [address] [place] [address] Health Maintenance Due Date Last Done Comments HIV SCREENING 2007 HEPATITIS C SCREENING 04/17/2010 HEPATITIS B VACCINE (1 of 3 - 19+ 3-dose series) 2011 PAP SMEAR 2013 HPV VACCINE (1 - 3-dose SCDM series) 2019 DTAP/TDAP/TD VACCINES (2 - T d or Tdap) 01/23/2025 01/23/2015 COVID-19 VACCINE (2 - 2024-2 6 season) 2025 06/01/2023 INFLUENZA VACCINE (#1) 2025 , 05/31/2013 ZOSTER VACCINE (1 of 2) 2042 DEPRESSION SCREENING Completed 04/29/2025, 03/06/2024 HIB VACCINE Aged Out No longer eligi ble based on patient's age to complete this topic MENINGOCOCCAL (Group B) VACCINE SHARED DECISION-MAKING Aged Out No longer eligible based on patient's age to complete this topic MENINGOCOCCAL GROUPS A/C/Y/W VACCINE Aged Out No longer eligible b ased on patient's age to complete this topic PNEUMOCOCCAL VACCINE Aged Out No long er eligible based on patient's age to complete this topic Procedures Procedure Name Priority Date/Time Associated Diagnosis Comments VITAMIN D 25-HYDROXY 04/29/2025 2:20 PM CDT CBC W AUTO DIFFERENTIAL 04/29/2025 2:20 PM CDT COMPREHENSIVE METABOLIC PANEL 04/29/2025 2:20 PM CDT from Last 3 Months Results * (ABNORMAL) VITAMIN D 25-HYDROXY (04/29/2025 2:20 PM CDT) Pathologist [facility] Vitamin D, 25 Hydroxy 25(L) 30 - 100 ng/mL [facility] Comment: Vitamin D Status 25-OH Vitamin D: Deficiency: <20 ng/mL Insufficiency: 20 - 29 ng/mL Optimal: > or = 30 ng/mL For 25-OH Vitamin D testing on patients on D2-supplementation and patients for whom quantitation of D2 and D3 fractions is required, the QuestAssureD(TM) 25-OH VIT D, (D2,D3), LC/MS/MS is recommended: order code 51952 (patients >2yrs). See Note 1 Note 1 For additional information, please refer to http://education.Allworx/faq/KOD530 (This link is being provided for informational/ educational purposes only.) Test Performed at: [facility] [id number] [place] [address] DON SESYA MD 04/29/2025 2:20 PM CDT 04/29/2025 2:22 PM CDT [facility] Marly PRINT JOURNALIST-CLIENT SERVICES SPECIALIST LAB - CHEMISTRY ORDERAB LES Final Result [facility] [id number] [place] [address] * (ABNORMAL) CBC WITH DIFFERENTIAL (04/29/2025 2:20 PM CDT) Pathologist [facility] White Blood Cell Count 5.5 3.8 - 10.8 Thousand/u L [facility] RBC 4.21 3.80 - 5.10 Million/uL [facility] Hemoglobin 10.7(L) 11.7 - 15.5 g/dL [facility] Hematocrit 35.0 35.0 - 45.0 % [facility] MCV 83.1 80.0 - 100.0 fL [facility] MCH 25.4(L) 27.0 - 33.0 pg [facility] MCHC 30.6(L) 32.0 - 36.0 g/dL [facility] Comment: For adults, a slight decrease in the calculated MCHC value (in the range of 30 to 32 g/dL) is most likely not clinically significant; however, it should be interpreted with caution in correlation with other red cell parameters and the patient's clinical condition. RDW 14.3 11.0 - 15.0 % [facility] Platelet Count 343 140 - 400 Thousand/u L [facility] MPV 11.6 7.5 - 12.5 fL [facility] Neutrophil Absolute 3185 1500 - 7800 cells/uL [facility] Lymphocytes Absolute 1612 850 - 3900 cells/uL [facility] Absolute Monocytes 396 200 - 950 cells/uL [facility] Eosinophils Absolute 237 15 - 500 cells/uL [facility] Basophils Absolute 72 0 - 200 cells/uL [facility] Granulocytes % 57.9 % [facility] Lymphocytes % 29.3 % [facility] Monocytes % 7.2 % [facility] Eosinophils % 4.3 % [facility] Basophils % 1.3 % [facility] Comment: Test Performed at: [facility] [id number] [facility] [place] [address] DON SESAY MD 04/29/2025 2:20 PM CDT 04/29/2025 2:22 PM CDT Marian Novak PRINT JOURNALIST-CLIENT SERVICES SPECIALIST LAB - HEMATOLOGY ORDERA BLES Final Result [facility] [address] [place] [address] * COMPREHENSIVE METABOLIC PANEL (04/29/2025 2:20 PM CDT) Pathologist [facility] Glucose 98 65 - 99 mg/dL [facility] Comment: Fasting reference interval BUN 8 7 - 25 mg/dL [facility] Creatinine 0.54 0.50 - 0.97 mg/dL [facility] eGFR by Cystatin C 125 > OR = 60 mL/min/1. 73m2 [facility] BUN/Creatinine Ratio SEE NOTE: 6 - 22 (calc) [facility] Comment: Not Reported: BUN and Creatinine are within reference range. Sodium 139 135 - 146 mmol/L [facility] Potassium 3.7 3.5 - 5.3 mmol/L [facility] Chloride 103 98 - 110 mmol/L [facility] CO2 28 20 - 32 mmol/L [facility] Calcium 9.2 8.6 - 10.2 mg/dL [facility] Protein Total 7.7 6.1 - 8.1 g/dL [facility] Albumin 4.7 3.6 - 5.1 g/dL [facility] Globulin Total 3.0 1.9 - 3.7 g/dL (calc) [facility] Albumin/Globulin Ratio 1.6 1.0 - 2.5 (calc) [facility] Bilirubin Total 0.4 0.2 - 1.2 mg/dL [facility] Alkaline Phosphatase 53 31 - 125 U/L [facility] AST 16 10 - 30 U/L [facility] ALT 9 6 - 29 U/L [facility] Comment: Test Performed at: [facility] [address] [facility] [address] DON SESAY MD 04/29/2025 2:20 PM CDT 04/29/2025 2:22 PM CDT Marian Marly PRINT JOURNALIST-CLIENT SERVICES SPECIALIST LAB - CHEMISTRY ORDERAB LES Final Result [facility] [id number] [place] [address] from Last 3 Months Insurance [facility] Care Teams Credit Review Officer Relationship Specialty Start Date End Date Lady Avila MD [address] [address] PCP - General Family Medicine 03/06/24 Lady Avila MD [address] [address] PCP - Attributed-WellFirst EHP STL 03/31/24 Anjelica Joseph Care Coordination Specialist Care Management 05/01/25
--- OUTSIDE RECORDS SUMMARY | 2025-05-01 11:05 | XMS_ITS | Encounter Summary ---
Author Organization [employer] Address [address] Hong: Epic Prelude ADT [place] [address] Care Team Providers Care Industrial Staff Nurse Name Role Phone Unavailable Primary Care Provider Unavailabl e Encounter Details Date Type Department Care Team (Late st Contact Info) Description 05/17/1996 Outpatient Historical Conversion, History Social History Tobacco Use Types Packs/Day Years Used Date Smoking Tobacco: Never Assessed Comments Unknown Sex and Gender Information Value Date Recorded Sex Assigned at Not on file Legal Sex Female 3:30 AM BANQUET SERVER Gender Identity Not on file Sexual Orientation Not on file documented as of this encounter Plan of Treatment Not on file documented as of this encounter Visit Diagnoses Not on filedocumented in this encounter
--- OUTSIDE RECORDS SUMMARY | 2025-05-01 11:05 | XMS_ITS | Encounter Summary ---
Author Organization [email or web address] Address [address] [place] [address] Care Team Providers Care Data Operations Leader Name Role Phone Unavailable Primary Care Provider Unavailabl e Encounter Details Date Type Department Care Team (Late st Contact Info) Description 12/17/1999 Outpatient Historical [facility],NON-PATIENT Social History Tobacco Use Types Packs/Day Years Used Date Smoking Tobacco: Never Assessed Comments Unknown Sex and Gender Information Value Date Recorded Sex Assigned at Not on file Legal Sex Female 3:30 AM SLACKMAN Gender Identity Not on file Sexual Orientation Not on file documented as of this encounter Plan of Treatment Not on file documented as of this encounter Visit Diagnoses Not on filedocumented in this encounter
--- OUTSIDE RECORDS SUMMARY | 2025-05-01 11:05 | XMS_ITS | Encounter Summary ---
Author Organization [facility] Address [address] Hong: Epic Prelude ADT [place] [address] Care Team Providers Care Fuel Efficient Automobile Designer Name Role Phone Unavailable Primary Care Provider Unavailabl e Encounter Details Date Type Department Care Team (Late st Contact Info) Description 03/17/1995 Outpatient Historical Conversion, History Social History Tobacco Use Types Packs/Day Years Used Date Smoking Tobacco: Never Assessed Comments Unknown Sex and Gender Information Value Date Recorded Sex Assigned at Not on file Legal Sex Female 3:30 AM MANAGER COMMUNITY Gender Identity Not on file Sexual Orientation Not on file documented as of this encounter Plan of Treatment Not on file documented as of this encounter Visit Diagnoses Not on filedocumented in this encounter
--- OUTSIDE RECORDS SUMMARY | 2025-05-01 11:05 | XMS_ITS | Clinical Summary ---
Author Organization [facility] Address [address] Hong: Epic Prelude ADT [place] [address] Care Team Providers Care Bilingual Speech Therapist Name Role Phone Unavailable Primary Care Provider Unavailabl e Social History Tobacco Use Types Packs/Day Years Used Date Smoking Tobacco: Never Assessed Comments Unknown Sex and Gender Information Value Date Recorded Sex Assigned at Not on file Legal Sex Female 3:30 AM PRODUCT TRAINER Gender Identity Not on file Sexual Orientation Not on file Plan of Treatment Health Maintenance Due Date Last Done Comments DTAP/TDAP/TD VACCINES (1 - Tdap) 2011 HEPATITIS B VACCINES (1 of 3 - 19+ 3-dose series) 04/01 HPV/Cotest (21-29) 2013 HPV VACCINES (1 - 3-dose SCDM series) 2019 CERVICAL CANCER SCREENING 2022 HPV/Cotest (30-65) 2022 PAP SMEAR 2022 INFLUENZA VACCINE (#1) 2025
--- OUTSIDE RECORDS SUMMARY | 2025-05-01 11:05 | XMS_ITS | Encounter Summary ---
Author Organization [facility] Address [address] Hong: Epic Prelude ADT [place] [address] Care Team Providers Care Instrument Designer Name Role Phone Unavailable Primary Care Provider Unavailabl e Encounter Details Date Type Department Care Team (Late st Contact Info) Description 07/15/1994 Outpatient Historical Conversion, History Social History Tobacco Use Types Packs/Day Years Used Date Smoking Tobacco: Never Assessed Comments Unknown Sex and Gender Information Value Date Recorded Sex Assigned at Not on file Legal Sex Female 3:30 AM CASHIER OFFICE Gender Identity Not on file Sexual Orientation Not on file documented as of this encounter Plan of Treatment Not on file documented as of this encounter Visit Diagnoses Not on filedocumented in this encounter
--- OUTSIDE RECORDS SUMMARY | 2025-05-01 11:05 | XMS_ITS | Encounter Summary ---
Author Organization [facility] Address [address] [place] [address] Care Team Providers Care Camp Dishwasher Name Role Phone Lady Avila MD Primary Care Provider [phone] Lady Avila MD Unavailable Anjelica Joseph Unavailable [phone] Encounter Details Date Type Department Care Team (Late st Contact Info) Description 04/30/2025 Results Follow-Up [facility] - Family Medicine [address] [facility] [address] [place] [phone] Marian Novak APRN-EDIE [address] [facility] [address] [place], [place] [id number] Social History Tobacco Use Types Packs/Day Years [...] 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 - Pulmonology [address] [facility] [address] [place] [address] Marian Novak, SOCIAL WORKER MASTERS-RESIDENTIAL PROGRAM DIRECTOR [address] [address] José Antonio Osborne MD [address] [place] [address] 05/29/2025 10:30 AM CDT Office Visit [facility] Family Medicine [address] [address] Marian Novak, SOCIAL WORKER MASTERS-RESIDENTIAL PROGRAM DIRECTOR [address] [address] documented as of this encounter Visit Diagnoses Not on filedocumented in this encounter Care Teams Camp Dishwasher Relationship Specialty Start Date End Date Lady Avila MD [address] [address] PCP - General Family Medicine 03/06/24 Lady Avila MD [address] [address] PCP - Attributed-WellFirst EHP STL 03/31/24 Anjelica Joseph Care Coordination Specialist Care Management 05/01/25 documented as of this encounter
--- OUTSIDE RECORDS SUMMARY | 2025-05-01 11:05 | XMS_ITS | Encounter Summary ---
Author Organization [facility] Address [address] Hong: Epic Prelude ADT [place] [address] Care Team Providers Care Tele Grout Sewer Line Repairer Name Role Phone Unavailable Primary Care Provider Unavailabl e Encounter Details Date Type Department Care Team (Late st Contact Info) Description 09/06/1996 Outpatient Historical Conversion, History Social History Tobacco Use Types Packs/Day Years Used Date Smoking Tobacco: Never Assessed Comments Unknown Sex and Gender Information Value Date Recorded Sex Assigned at Not on file Legal Sex Female 3:30 AM BOXING INSPECTOR Gender Identity Not on file Sexual Orientation Not on file documented as of this encounter Plan of Treatment Not on file documented as of this encounter Visit Diagnoses Not on filedocumented in this encounter
--- OUTSIDE RECORDS SUMMARY | 2025-05-01 11:05 | XMS_ITS | Encounter Summary ---
Author Organization [facility] Address [address] Hong: Epic Prelude ADT [place] [address] Care Team Providers Care Clinical Project Leader Name Role Phone Unavailable Primary Care Provider Unavailabl e Encounter Details Date Type Department Care Team (Late st Contact Info) Description 10/04/1996 Outpatient Historical Conversion, History Social History Tobacco Use Types Packs/Day Years Used Date Smoking Tobacco: Never Assessed Comments Unknown Sex and Gender Information Value Date Recorded Sex Assigned at Not on file Legal Sex Female 3:30 AM CLOTHES PRESSER Gender Identity Not on file Sexual Orientation Not on file documented as of this encounter Plan of Treatment Not on file documented as of this encounter Visit Diagnoses Not on filedocumented in this encounter
--- OUTSIDE RECORDS SUMMARY | 2025-05-01 11:05 | XMS_ITS | Encounter Summary ---
Author Organization [facility] Address [address] Hong: Epic Prelude ADT [place] [address] Care Team Providers Care School Psychometrist Name Role Phone Unavailable Primary Care Provider Unavailabl e Encounter Details Date Type Department Care Team (Late st Contact Info) Description 02/03/1997 Outpatient Historical Conversion, History Social History Tobacco Use Types Packs/Day Years Used Date Smoking Tobacco: Never Assessed Comments Unknown Sex and Gender Information Value Date Recorded Sex Assigned at Not on file Legal Sex Female 3:30 AM RESEARCH CHEMICAL ENGINEER Gender Identity Not on file Sexual Orientation Not on file documented as of this encounter Plan of Treatment Not on file documented as of this encounter Visit Diagnoses Not on filedocumented in this encounter
--- OUTSIDE RECORDS SUMMARY | 2025-05-01 11:05 | XMS_ITS | Encounter Summary ---
Author Organization [employer] Address [address] [place] [address] Care Team Providers Care Canoe Builder Name Role Phone Unavailable Primary Care Provider Unavailabl e Encounter Details Date Type Department Care Team (Late st Contact Info) Description 09/17/1999 Outpatient Historical [facility],NON-PATIENT Social History Tobacco Use Types Packs/Day Years Used Date Smoking Tobacco: Never Assessed Comments Unknown Sex and Gender Information Value Date Recorded Sex Assigned at Not on file Legal Sex Female 3:30 AM SKIDDER OPERATOR Gender Identity Not on file Sexual Orientation Not on file documented as of this encounter Plan of Treatment Not on file documented as of this encounter Visit Diagnoses Not on filedocumented in this encounter
--- OUTSIDE RECORDS SUMMARY | 2025-05-01 11:05 | XMS_ITS | Encounter Summary ---
Author Organization [employer] Address [address] [place] [address] Care Team Providers Care Hot Strip Finisher Name Role Phone Unavailable Primary Care Provider Unavailabl e Encounter Details Date Type Department Care Team (Late st Contact Info) Description 05/19/2000 Outpatient Historical [facility] LAB, [address] Social History Tobacco Use Types Packs/Day Years Used Date Smoking Tobacco: Never Assessed Comments Unknown Sex and Gender Information Value Date Recorded Sex Assigned at Not on file Legal Sex Female 3:30 AM AGRONOMY LOCATION MANAGER Gender Identity Not on file Sexual Orientation Not on file documented as of this encounter Plan of Treatment Not on file documented as of this encounter Visit Diagnoses Not on filedocumented in this encounter
--- OUTSIDE RECORDS SUMMARY | 2025-05-01 11:05 | XMS_ITS ---
Author Organization [facility] Address [address] [place] [address] Care Team Providers Care Customer Sales Consultant Name Role Phone Lady Avila MD Primary Care Provider + [phone] Lady Avila MD Unavailable [phone] Anjelica Joseph Unavailable [phone] QMM & AWV - [facility] Status:Identified (Enrolling) Start date:05/01/2025 Enrollment reason:Identified using claims or encounter data Case Team Name Relationship Phone Anjelica Joseph(Responsible Staff) Care Coordin ation Specialist [phone] Continued Care and Services Coordination
--- OUTSIDE RECORDS SUMMARY | 2025-05-01 11:05 | XMS_ITS | Encounter Summary ---
Author Organization [facility] Address [address] Hong: Epic Prelude ADT [place] [address] Care Team Providers Care Patent Examiner Name Role Phone Unavailable Primary Care Provider Unavailabl e Encounter Details Date Type Department Care Team (Late st Contact Info) Description 11/18/1994 Outpatient Historical Conversion, History Social History Tobacco Use Types Packs/Day Years Used Date Smoking Tobacco: Never Assessed Comments Unknown Sex and Gender Information Value Date Recorded Sex Assigned at Not on file Legal Sex Female 3:30 AM SAIL LAY OUT WORKER Gender Identity Not on file Sexual Orientation Not on file documented as of this encounter Plan of Treatment Not on file documented as of this encounter Visit Diagnoses Not on filedocumented in this encounter
--- OUTSIDE RECORDS SUMMARY | 2025-05-01 11:05 | XMS_ITS | Encounter Summary ---
Author Organization [facility] Address [address] Hong: Epic Prelude ADT [place] [address] Care Team Providers Care Fraternity House Cook Name Role Phone Unavailable Primary Care Provider Unavailabl e Encounter Details Date Type Department Care Team (Late st Contact Info) Description 09/06/1996 Outpatient Historical Conversion, History Social History Tobacco Use Types Packs/Day Years Used Date Smoking Tobacco: Never Assessed Comments Unknown Sex and Gender Information Value Date Recorded Sex Assigned at Not on file Legal Sex Female 3:30 AM ROUGH AND TRUING MACHINE OPERATOR Gender Identity Not on file Sexual Orientation Not on file documented as of this encounter Plan of Treatment Not on file documented as of this encounter Visit Diagnoses Not on filedocumented in this encounter
--- OUTSIDE RECORDS SUMMARY | 2025-05-01 11:05 | XMS_ITS | Encounter Summary ---
Author Organization [facility] Address [address] Hong: Epic Prelude ADT [place] [address] Care Team Providers Care General Internal Medicine Doctor Name Role Phone Unavailable Primary Care Provider Unavailabl e Encounter Details Date Type Department Care Team (Late st Contact Info) Description 12/13/1996 Outpatient Historical Conversion, History Social History Tobacco Use Types Packs/Day Years Used Date Smoking Tobacco: Never Assessed Comments Unknown Sex and Gender Information Value Date Recorded Sex Assigned at Not on file Legal Sex Female 3:30 AM CASING IN LINE SETTER Gender Identity Not on file Sexual Orientation Not on file documented as of this encounter Plan of Treatment Not on file documented as of this encounter Visit Diagnoses Not on filedocumented in this encounter
--- OUTSIDE RECORDS SUMMARY | 2025-05-01 11:05 | XMS_ITS | Clinical Summary ---
Author Organization [facility] Address [address] [place] [address] Care Team Providers Care Sheet Finisher Name Role Phone Unavailable Primary Care [...] 1:46 PM CDT Height 165.1 cm (5' 5) 03/28/2018 1:46 PM CDT Body Mass Index 18.47 03/28/2018 1:46 PM CDT Plan of Treatment Health Maintenance Due Date Last Done Comments Cervical Cancer Screening Pa p Smear (Age 30 to 64) Every 3 Years 1992 Annual Physical 1995 Hepatitis C 2010 DTaP, Tdap and Td Vaccines ( 1 - Tdap) 2011 Hepatitis B Vaccines (1 of 3 - 19+ 3-dose series) 2011 HPV Vaccines (1 - 3-dose SCD M series) 2019 Cervical Cancer Screening Pa p with HPV Testing (Age 30 to 64) Every 5 Years 2022 Cervical Cancer Screening with HPV 2022 COVID-19 Vaccine ( - 2023-2 5 season) 2025 Meningococcal B Vaccine Aged Out No l onger eligible based on patient's age to complete this topic Meningococcal Vaccine Aged Out No senthil sarah eligible based on patient's age to complete this topic Pneumococcal Vaccine: Pediat rics (0 to 5 Years) and At-Risk Patients (6 to 49 Years) Aged Out No longer eligible b ased on patient's age to complete this topic RSV Immunizations Under 20 Months Aged Out No longer eligible based on patient's age to complete this topic Insurance
[2025-05-01 11:16] LABS: Alanine Aminotransferase 14 U/L (6-35); Albumin Level 4.5 g/dL (3.5-5.1); Alkaline Phosphatase 66 U/L (38-126); Anion Gap 9 mmol/L (4-12); Aspartate Amino Transferase 29 U/L (14-36); Bilirubin,Total 0.5 mg/dL (0.2-1.3); Blood Urea Nitrogen 8 mg/dL (7-17); Calcium 8.8 mg/dL (8.4-10.2); Carbon Dioxide 24 mmol/L (22-30); Chloride 103 mmol/L (98-107); Estimated CRCL calculation 115 ml/min; Estimated Glomerular Filt Rate > 60; Glucose 94 mg/dL (65-110); Potassium 3.8 mmol/L (3.4-5.0); Sodium 136 mmol/L (137-145); Total Protein 8.3 g/dL (6.3-8.2)
[2025-05-01] MEDS: KETOROLAC 30 MG/ML VIAL (*BKC) IV PUSH (11:33)
[2025-05-01] MEDS: ONDANSETRON INJ 4 MG/2 ML VIAL IV PUSH (11:33)
[2025-05-01] MEDS: SODIUM CHLORIDE 0.9% IV 1,000 ML 999 ML IV CONT (11:33)
[2025-05-01] MEDS: FAMOTIDINE 20 MG/2 ML VIAL IV PUSH (11:33)
[2025-05-01 11:54] LABS: Add Urine Microscopic? YES; Appearance Urine Clear (Clear); Glucose Urine UA Negative (Negative); Leukocyte Esterase Ur 1+ LEU/UL (Negative); Nitrate Urine Negative (Negative); Non Pathogenic Casts 0-2; Specific Grav Ur 1.024 (1.001-1.035)
--- OUTSIDE RECORDS SUMMARY | 2025-05-01 11:55 | XMS_ITS | Encounter Summary ---
Author Organization [facility] Address [address] Hong: Epic Prelude ADT [place] [address] Care Team Providers Care Research Test Engine Evaluator Name Role Phone Unavailable Primary Care Provider Unavailabl e Encounter Details Date Type Department Care Team (Late st Contact Info) Description 03/17/1995 Outpatient Historical Conversion, History Social History Tobacco Use Types Packs/Day Years Used Date Smoking Tobacco: Never Assessed Comments Unknown Sex and Gender Information Value Date Recorded Sex Assigned at Not on file Legal Sex Female 3:30 AM CASE WORK AIDE Gender Identity Not on file Sexual Orientation Not on file documented as of this encounter Plan of Treatment Not on file documented as of this encounter Visit Diagnoses Not on filedocumented in this encounter
--- OUTSIDE RECORDS SUMMARY | 2025-05-01 11:55 | XMS_ITS | Encounter Summary ---
Author Organization [employer] Address [address] [place] [address] Care Team Providers Care Rewind Operator Name Role Phone Unavailable Primary Care Provider Unavailabl e Encounter Details Date Type Department Care Team (Late st Contact Info) Description 12/17/1999 Outpatient Historical HIS LAB,NON-PATIENT Social History Tobacco Use Types Packs/Day Years Used Date Smoking Tobacco: Never Assessed Comments Unknown Sex and Gender Information Value Date Recorded Sex Assigned at Not on file Legal Sex Female 3:30 AM ALIGNMENT MECHANIC Gender Identity Not on file Sexual Orientation Not on file documented as of this encounter Plan of Treatment Not on file documented as of this encounter Visit Diagnoses Not on filedocumented in this encounter
--- OUTSIDE RECORDS SUMMARY | 2025-05-01 11:55 | XMS_ITS ---
Author Organization [facility] Address [address] [place] [address] Care Team Providers Care Security Software Engineer Name Role Phone Lady Avila MD Primary Care Provider + [phone] Lady Avila MD Unavailable [phone] Anjelica Joseph Unavailable [phone] QMM & AWV - [employer] Status:Identified (Enrolling) Start date:05/01/2025 Enrollment reason:Identified using claims or encounter data Case Team Name Relationship Phone Anjelica Joseph(Responsible Staff) Care Coordin ation Specialist [phone] Continued Care and Services Coordination
--- OUTSIDE RECORDS SUMMARY | 2025-05-01 11:55 | XMS_ITS | Encounter Summary ---
Author Organization [facility] Address [address] Hong: Epic Prelude ADT [place] [address] Care Team Providers Care Pin Sticker Name Role Phone Unavailable Primary Care Provider Unavailabl e Encounter Details Date Type Department Care Team (Late st Contact Info) Description 12/13/1996 Outpatient Historical Conversion, History Social History Tobacco Use Types Packs/Day Years Used Date Smoking Tobacco: Never Assessed Comments Unknown Sex and Gender Information Value Date Recorded Sex Assigned at Not on file Legal Sex Female 3:30 AM SERVICER Gender Identity Not on file Sexual Orientation Not on file documented as of this encounter Plan of Treatment Not on file documented as of this encounter Visit Diagnoses Not on filedocumented in this encounter
--- OUTSIDE RECORDS SUMMARY | 2025-05-01 11:55 | XMS_ITS | Encounter Summary ---
Author Organization [facility] Address [address] Hong: Epic Prelude ADT [place] [address] Care Team Providers Care Sunday [employer] Missionary Name Role Phone Unavailable Primary Care Provider Unavailabl e Encounter Details Date Type Department Care Team (Late st Contact Info) Description 09/06/1996 Outpatient Historical Conversion, History Social History Tobacco Use Types Packs/Day Years Used Date Smoking Tobacco: Never Assessed Comments Unknown Sex and Gender Information Value Date Recorded Sex Assigned at Not on file Legal Sex Female 3:30 AM VP PACKAGING Gender Identity Not on file Sexual Orientation Not on file documented as of this encounter Plan of Treatment Not on file documented as of this encounter Visit Diagnoses Not on filedocumented in this encounter
--- OUTSIDE RECORDS SUMMARY | 2025-05-01 11:55 | XMS_ITS | Encounter Summary ---
Author Organization [facility] Address [address] Hong: Epic Prelude ADT [place] [address] Care Team Providers Care Package Designer Name Role Phone Unavailable Primary Care Provider Unavailabl e Encounter Details Date Type Department Care Team (Late st Contact Info) Description 11/18/1994 Outpatient Historical Conversion, History Social History Tobacco Use Types Packs/Day Years Used Date Smoking Tobacco: Never Assessed Comments Unknown Sex and Gender Information Value Date Recorded Sex Assigned at Not on file Legal Sex Female 3:30 AM CLIENT MANAGER Gender Identity Not on file Sexual Orientation Not on file documented as of this encounter Plan of Treatment Not on file documented as of this encounter Visit Diagnoses Not on filedocumented in this encounter
--- OUTSIDE RECORDS SUMMARY | 2025-05-01 11:55 | XMS_ITS | Encounter Summary ---
Author Organization [facility] Address [address] Hong: Epic Prelude ADT [place] [address] Care Team Providers Care Aerodynamics Professor Name Role Phone Unavailable Primary Care Provider Unavailabl e Encounter Details Date Type Department Care Team (Late st Contact Info) Description 09/02/1994 Outpatient Historical Conversion, History Social History Tobacco Use Types Packs/Day Years Used Date Smoking Tobacco: Never Assessed Comments Unknown Sex and Gender Information Value Date Recorded Sex Assigned at Not on file Legal Sex Female 3:30 AM DEVELOPER PROVER UPHOLSTERING Gender Identity Not on file Sexual Orientation Not on file documented as of this encounter Plan of Treatment Not on file documented as of this encounter Visit Diagnoses Not on filedocumented in this encounter
--- OUTSIDE RECORDS SUMMARY | 2025-05-01 11:55 | XMS_ITS | Encounter Summary ---
Author Organization [facility] Address [address] Hong: Epic Prelude ADT [place] [address] Care Team Providers Care Portable Irrigation Operator Name Role Phone Unavailable Primary Care Provider Unavailabl e Encounter Details Date Type Department Care Team (Late st Contact Info) Description 10/04/1996 Outpatient Historical Conversion, History Social History Tobacco Use Types Packs/Day Years Used Date Smoking Tobacco: Never Assessed Comments Unknown Sex and Gender Information Value Date Recorded Sex Assigned at Not on file Legal Sex Female 3:30 AM CHEMOTHERAPIST Gender Identity Not on file Sexual Orientation Not on file documented as of this encounter Plan of Treatment Not on file documented as of this encounter Visit Diagnoses Not on filedocumented in this encounter
--- OUTSIDE RECORDS SUMMARY | 2025-05-01 11:55 | XMS_ITS | Encounter Summary ---
Author Organization [facility] Address [address] Hong: Epic Prelude ADT [place] [address] Care Team Providers Care Pruner Name Role Phone Unavailable Primary Care Provider Unavailabl e Encounter Details Date Type Department Care Team (Late st Contact Info) Description 09/06/1996 Outpatient Historical Conversion, History Social History Tobacco Use Types Packs/Day Years Used Date Smoking Tobacco: Never Assessed Comments Unknown Sex and Gender Information Value Date Recorded Sex Assigned at Not on file Legal Sex Female 3:30 AM MANAGER NURSING HOME Gender Identity Not on file Sexual Orientation Not on file documented as of this encounter Plan of Treatment Not on file documented as of this encounter Visit Diagnoses Not on filedocumented in this encounter
--- OUTSIDE RECORDS SUMMARY | 2025-05-01 11:55 | XMS_ITS | Encounter Summary ---
Author Organization [employer] Address [address] [place] [address] Care Team Providers Care Director Print Name Role Phone Unavailable Primary Care Provider Unavailabl e Encounter Details Date Type Department Care Team (Late st Contact Info) Description 06/04/1999 Outpatient Historical HIS LAB,NON-PATIENT Social History Tobacco Use Types Packs/Day Years Used Date Smoking Tobacco: Never Assessed Comments Unknown Sex and Gender Information Value Date Recorded Sex Assigned at Not on file Legal Sex Female 3:30 AM DERIVATIVES TRADER Gender Identity Not on file Sexual Orientation Not on file documented as of this encounter Plan of Treatment Not on file documented as of this encounter Visit Diagnoses Not on filedocumented in this encounter
--- OUTSIDE RECORDS SUMMARY | 2025-05-01 11:55 | XMS_ITS | Encounter Summary ---
Author Organization [facility] Address [address] Hong: Epic Prelude ADT [place] [address] Care Team Providers Care Roll Tension Tester Name Role Phone Unavailable Primary Care Provider Unavailabl e Encounter Details Date Type Department Care Team (Late st Contact Info) Description 04/15/1994 Outpatient Historical Conversion, History Social History Tobacco Use Types Packs/Day Years Used Date Smoking Tobacco: Never Assessed Comments Unknown Sex and Gender Information Value Date Recorded Sex Assigned at Not on file Legal Sex Female 3:30 AM STAFFING OPERATIONS MANAGER Gender Identity Not on file Sexual Orientation Not on file documented as of this encounter Plan of Treatment Not on file documented as of this encounter Visit Diagnoses Not on filedocumented in this encounter
--- OUTSIDE RECORDS SUMMARY | 2025-05-01 11:55 | XMS_ITS | Encounter Summary ---
Author Organization [employer] Address [address] [place] [address] Care Team Providers Care Chamber Worker Name Role Phone Unavailable Primary Care Provider Unavailabl e Encounter Details Date Type Department Care Team (Late st Contact Info) Description 08/06/1999 Outpatient Historical HIS LAB,NON-PATIENT Social History Tobacco Use Types Packs/Day Years Used Date Smoking Tobacco: Never Assessed Comments Unknown Sex and Gender Information Value Date Recorded Sex Assigned at Not on file Legal Sex Female 3:30 AM CANADIAN BACON TIER Gender Identity Not on file Sexual Orientation Not on file documented as of this encounter Plan of Treatment Not on file documented as of this encounter Visit Diagnoses Not on filedocumented in this encounter
--- OUTSIDE RECORDS SUMMARY | 2025-05-01 11:55 | XMS_ITS | Encounter Summary ---
Author Organization [employer] Address [address] [place] [address] Care Team Providers Care Repair Manager Name Role Phone Unavailable Primary Care Provider Unavailabl e Encounter Details Date Type Department Care Team (Late st Contact Info) Description 09/17/1999 Outpatient Historical HIS LAB,NON-PATIENT Social History Tobacco Use Types Packs/Day Years Used Date Smoking Tobacco: Never Assessed Comments Unknown Sex and Gender Information Value Date Recorded Sex Assigned at Not on file Legal Sex Female 3:30 AM WELFARE SERVICE AIDE Gender Identity Not on file Sexual Orientation Not on file documented as of this encounter Plan of Treatment Not on file documented as of this encounter Visit Diagnoses Not on filedocumented in this encounter
--- OUTSIDE RECORDS SUMMARY | 2025-05-01 11:55 | XMS_ITS | Encounter Summary ---
Author Organization [facility] Address [address] Hong: Epic Prelude ADT [place] [address] Care Team Providers Care Rn Clinical Name Role Phone Unavailable Primary Care Provider Unavailabl e Encounter Details Date Type Department Care Team (Late st Contact Info) Description 05/17/1996 Outpatient Historical Conversion, History Social History Tobacco Use Types Packs/Day Years Used Date Smoking Tobacco: Never Assessed Comments Unknown Sex and Gender Information Value Date Recorded Sex Assigned at Not on file Legal Sex Female 3:30 AM POWER TRANSFORMER REPAIRER Gender Identity Not on file Sexual Orientation Not on file documented as of this encounter Plan of Treatment Not on file documented as of this encounter Visit Diagnoses Not on filedocumented in this encounter
--- OUTSIDE RECORDS SUMMARY | 2025-05-01 11:55 | XMS_ITS | Clinical Summary ---
Author Organization [facility] Address [address] Hong: Epic Prelude ADT [place] [address] Care Team Providers Care Income Tax Analyst Name Role Phone Unavailable Primary Care Provider Unavailabl e Social History Tobacco Use Types Packs/Day Years Used Date Smoking Tobacco: Never Assessed Comments Unknown Sex and Gender Information Value Date Recorded Sex Assigned at Not on file Legal Sex Female 3:30 AM FOUNDRY WORKER GENERAL Gender Identity Not on file Sexual Orientation [...]
--- OUTSIDE RECORDS SUMMARY | 2025-05-01 11:55 | XMS_ITS | Encounter Summary ---
Author Organization [employer] Address [address] [place] [address] Care Team Providers Care Hogshead Liner Name Role Phone Unavailable Primary Care Provider Unavailabl e Encounter Details Date Type Department Care Team (Late st Contact Info) Description 05/19/2000 Outpatient Historical HIS LAB, [address] Social History Tobacco Use Types Packs/Day Years Used Date Smoking Tobacco: Never Assessed Comments Unknown Sex and Gender Information Value Date Recorded Sex Assigned at Not on file Legal Sex Female 3:30 AM CLINICAL INFORMATICS SPECIALIST Gender Identity Not on file Sexual Orientation Not on file documented as of this encounter Plan of Treatment Not on file documented as of this encounter Visit Diagnoses Not on filedocumented in this encounter
--- OUTSIDE RECORDS SUMMARY | 2025-05-01 11:55 | XMS_ITS | Encounter Summary ---
Author Organization [employer] Address [address] [place] [address] Care Team Providers Care Diamond Wheel Molder Name Role Phone Unavailable Primary Care Provider Unavailabl e Encounter Details Date Type Department Care Team (Late st Contact Info) Description 08/06/1999 Outpatient Historical HIS LAB,NON-PATIENT Social History Tobacco Use Types Packs/Day Years Used Date Smoking Tobacco: Never Assessed Comments Unknown Sex and Gender Information Value Date Recorded Sex Assigned at Not on file Legal Sex Female 3:30 AM MANAGER TREASURY Gender Identity Not on file Sexual Orientation Not on file documented as of this encounter Plan of Treatment Not on file documented as of this encounter Visit Diagnoses Not on filedocumented in this encounter
--- OUTSIDE RECORDS SUMMARY | 2025-05-01 11:55 | XMS_ITS | Encounter Summary ---
Author Organization [facility] Address [address] Hong: Epic Prelude ADT [place] [address] Care Team Providers Care Hay Chopper Name Role Phone Unavailable Primary Care Provider Unavailabl e Encounter Details Date Type Department Care Team (Late st Contact Info) Description 06/14/1996 Outpatient Historical Conversion, History Social History Tobacco Use Types Packs/Day Years Used Date Smoking Tobacco: Never Assessed Comments Unknown Sex and Gender Information Value Date Recorded Sex Assigned at Not on file Legal Sex Female 3:30 AM TECHNICAL LEAD Gender Identity Not on file Sexual Orientation Not on file documented as of this encounter Plan of Treatment Not on file documented as of this encounter Visit Diagnoses Not on filedocumented in this encounter
--- OUTSIDE RECORDS SUMMARY | 2025-05-01 11:55 | XMS_ITS | Encounter Summary ---
Author Organization [facility] Address [address] Hong: Epic Prelude ADT [place] [address] Care Team Providers Care Butter Grader Name Role Phone Unavailable Primary Care Provider Unavailabl e Encounter Details Date Type Department Care Team (Late st Contact Info) Description 02/03/1997 Outpatient Historical Conversion, History Social History Tobacco Use Types Packs/Day Years Used Date Smoking Tobacco: Never Assessed Comments Unknown Sex and Gender Information Value Date Recorded Sex Assigned at Not on file Legal Sex Female 3:30 AM POWER ELECTRONICS RESEARCH ENGINEER Gender Identity Not on file Sexual Orientation Not on file documented as of this encounter Plan of Treatment Not on file documented as of this encounter Visit Diagnoses Not on filedocumented in this encounter
--- OUTSIDE RECORDS SUMMARY | 2025-05-01 11:55 | XMS_ITS | Clinical Summary ---
Author Organization [facility] Address [address] [place] [address] Care Team Providers Care At Home Independent Call Center Agent Name Role Phone Unavailable Primary Care Provider [...]
--- OUTSIDE RECORDS SUMMARY | 2025-05-01 11:55 | XMS_ITS | Encounter Summary ---
Author Organization [facility] Address [address] Hong: Epic Prelude ADT [place] [address] Care Team Providers Care Substance Abuse Counselor Name Role Phone Unavailable Primary Care Provider Unavailabl e Encounter Details Date Type Department Care Team (Late st Contact Info) Description 10/03/1997 Outpatient Historical Conversion, History Social History Tobacco Use Types Packs/Day Years Used Date Smoking Tobacco: Never Assessed Comments Unknown Sex and Gender Information Value Date Recorded Sex Assigned at Not on file Legal Sex Female 3:30 AM BUSINESS LIAISON MANAGER Gender Identity Not on file Sexual Orientation Not on file documented as of this encounter Plan of Treatment Not on file documented as of this encounter Visit Diagnoses Not on filedocumented in this encounter
--- OUTSIDE RECORDS SUMMARY | 2025-05-01 11:55 | XMS_ITS | Clinical Summary ---
Author Organization [facility] Address [address] [address] Care Team Providers Care Crime Lab Technician Name Role Phone Lady Avila MD Primary Care Provider [phone] Lady Avila MD Unavailable [phone] Anjelica Joseph Unavailable [phone] Source Comments [facility],non-owned Affiliates and Associated Physician Practices is amultiple site organization consisting of ambulatory clinics and hospital sitesin [place], [place], [place] and [place]. This disclosure is being madepursuant to the Care Everywhere program and may not contain all information available regarding this patient. 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 03/21/2024 test negative 07/26/201503/01 Overview (03/06/2024): Encounter for test, result negative;Practice ID: [id number] Leukocytosis 03/27/2015 03/21/2024 Overview (03/06/2024): LEUKOCYTOSIS NOS;Recorded Elsewhere: No Location: [facility] Source: EHR Chronic: N Practice ID: [...] of normal first ;Recorded Elsewhere: No Location: [facility] Source: EHR Chronic: N Practice ID: [id number] Billable Time: 02:15:00 PM Intrauterine growth restrict ion (IUGR) affecting care of mother 12/24/2014 03/21/2024 Overview (03/06/2024): Poor growth, affecting management of mother, antepartum condition or complication;Recorded Elsewhere: No Location: [facility] Source: EHR Chronic: N Practice ID: [id number] Billable Time: 11:30:00 AM Encounters Date Type Department Care Team Description 04/30/2025 Results Follow-Up [facility] - Family Medicine [address] [place] [phone] Marian Novak APRN-CNP 04/29/2025 1:30 PM CDT Office Visit [facility] [address] [place] [phone] Marian Novak APRN-CNP Intractable migraine without status migrainosus, unspecified migraine type (Primary Dx); Anemia, unspecified type; Iron deficiency anemia, unspecified iron deficiency anemia type; Vitamin D deficiency disease 04/22/2025 Refill [facility] [address], [address] [place] [phone] Lady Avila MD MEDICATION REFILL from Last [...] 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 Not on file Not on file [...] Description 05/12/2025 1:30 PM CDT Office Visit [facility] - Pulmonology [address] [place] [address] Marian Novak, PUNCH HAND-MAILROOM MESSENGER [address] [place] [address] José Antonio Osborne MD [address] [place] [address] 05/29/2025 10:30 AM CDT Office Visit [facility] - Family Medicine [address] [facility] [address] [place] [phone] Marian Novak, PUNCH HAND-MAILROOM MESSENGER [address] [facility] [address] [place] [address] Health Maintenance Due Date Last Done Comments [...] D 25-HYDROXY (04/29/2025 2:20 PM CDT) Pathologist [facility] Vitamin D, 25 Hydroxy 25(L) 30 - 100 ng/mL [facility] Comment: Vitamin D Status 25-OH Vitamin D: Deficiency: <20 ng/mL Insufficiency: 20 - 29 ng/mL Optimal: > or = 30 ng/mL For 25-OH Vitamin D testing on patients on D2-supplementation and patients for whom quantitation of D2 and D3 fractions is required, the QuestAssureD(TM) 25-OH VIT D, (D2,D3), LC/MS/MS is recommended: order code 08143 (patients >2yrs). See Note 1 Note 1 For additional information, please refer to http://education.[employer]/faq/BVZ284 (This link is being provided for informational/ educational purposes only.) Test Performed at: [facility] [address] [place] [address] DON SESAY MD 04/29/2025 2:20 PM CDT 04/29/2025 2:22 PM CDT [facility] Marly PUNCH HAND-MAILROOM MESSENGER LAB - CHEMISTRY ORDERAB LES Final Result [facility] [id number] [place] [address] * (ABNORMAL) CBC WITH DIFFERENTIAL (04/29/2025 2:20 PM CDT) Pathologist [facility] White Blood Cell Count 5.5 3.8 - [...] 1.3 % [facility] Comment: Test Performed at: [facility] [address] [facility] [place] [address] DON SESAY MD 04/29/2025 2:20 PM CDT 04/29/2025 2:22 PM CDT Marian Novak PUNCH HAND-MAILROOM MESSENGER LAB - HEMATOLOGY ORDERA BLES Final Result [facility] [address] [place] [address] * COMPREHENSIVE METABOLIC PANEL (04/29/2025 2:20 PM CDT) Pathologist [facility] Glucose 98 65 - 99 mg/dL [facility] [...] 29 U/L [facility] Comment: Test Performed at: [facility] [address] [address] [facility] [place] [id number] DON SESAY MD 04/29/2025 2:20 PM CDT 04/29/2025 2:22 PM CDT Marian Marly PUNCH HAND-MAILROOM MESSENGER LAB - CHEMISTRY ORDERAB LES Final Result [facility] [id number] [place] [address] from Last 3 Months Insurance [facility] Care Teams Crime Lab Technician Relationship Specialty Start Date End Date Lady Avila MD [address] [address] PCP - General Family Medicine 03/06/24 Lady Avila MD [address] [address] PCP - Attributed-[facility] ST[facility] 03/31/24 Anjelica Joseph Care Coordination Specialist Care Management 05/01/25
--- OUTSIDE RECORDS SUMMARY | 2025-05-01 11:55 | XMS_ITS | Encounter Summary ---
Author Organization [facility] Address [address] 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
--- OUTSIDE RECORDS SUMMARY | 2025-05-01 11:55 | XMS_ITS | Encounter Summary ---
Author Organization [facility] Address [address] 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
--- OUTSIDE RECORDS SUMMARY | 2025-05-01 11:55 | XMS_ITS | Encounter Summary ---
Author Organization [facility] Address [address] 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
--- OUTSIDE RECORDS SUMMARY | 2025-05-01 11:55 | XMS_ITS | Encounter Summary ---
Author Organization [facility] Address [address] 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
--- OUTSIDE RECORDS SUMMARY | 2025-05-01 11:55 | XMS_ITS | Encounter Summary ---
Author Organization [facility] Address [address] 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 Not on file Not on file Not on file documented as of this encounter Plan of Treatment Upcoming Encounters Date Type Department Care Team (Late st Contact Info) Description 05/12/2025 1:30 PM CDT Office Visit [facility] - Pulmonology [address] [facility] [address] [place] [address] Marian Novak, APPLICATION DEVELOPMENT CONSULTANT-TELECOMMUNICATIONS OPERATOR [address] [address] José Antonio Osborne MD [address] [place] [address] 05/29/2025 10:30 AM CDT Office Visit [facility] Family Medicine [address] [address] Marian Novak, APPLICATION DEVELOPMENT CONSULTANT-TELECOMMUNICATIONS OPERATOR [address] [address] documented as of this encounter Visit Diagnoses Not on filedocumented in this encounter Care Teams Gas Appliance Installer Relationship Specialty Start Date End Date Lady Avila MD [address] [address] PCP - General Family Medicine 03/06/24 Lady Avila MD [address] [address] PCP - Attributed-[facility] [facility] STL 03/31/24 Anjelica Joseph Care Coordination Specialist Care Management 05/01/25 documented as of this encounter
[2025-05-01 12:07] LABS: BEDSIDEPREGUCG Negative (Negative)
--- NOTE | 2025-05-01 12:32 | ED_ITS ---
HPI - General Adult General Chief complaint: Syncope Stated complaint: dizziness, syncopal episode, nausea Time Seen by Provider: 05/01/25 10:52 History of Present Illness HPI narrative: Jacky Hwang is a 35-year-old female with past medical history of iron deficiency anemia who states that she takes iron and it typically makes her feel nauseous she has been off of it for about a month and just got restarted back on after seeing her primary care doctor. She states that she took the iron today and started to feel nauseous she ate her then she started to feel home lightheaded a little dizzy so she laid down and she says that she passed out for a few minutes workup and she vomited she then called her dad and told him and he brought her here. She states that she no longer feels dizzy, she states that she feels a little foggy or out of it. She states that she no longer has a headache had a headache earlier this morning. She denies any nausea or pain anywhere at this time. Related Data Allergies Allergy/AdvReac Type Severity Reaction Status Date / Time No Known Allergies Allergy Verified 05/01/25 10:49 Review of Systems 2 Review of Systems: All systems reviewed & are unremarkable except as noted in HPI and below PMFSH Family History Family History Other Diabetes mellitus Social History Social History Smoking status: Never smoker Substance use: never Spiritual care concerns: No Exam 2 Narrative: GENERAL: Well-appearing, well-nourished, and in no acute distress. HEAD: Normocephalic, atraumatic. EYES: PERRLA and EOMI. ENT: Nares clear, no rhinorrhea or epistaxis. Mucous membranes moist. Oropharynx without tonsillar hypertrophy exudate or other lesions. NECK: Supple. No adenopathy or masses. No carotid bruits or JVD CHEST: Clear to auscultation. No respiratory distress. No wheezes rales or rhonchi HEART: Regular rate and rhythm. No murmur heard. Normal peripheral pulses. ABDOMEN: Soft, nontender, nondistended, normal active bowel sounds. EXTREMITIES: Normal range of motion. No edema. SKIN: Warm, dry, no rash. NEURO: No focal deficits. Alert and oriented x3. PSYCH: Normal mood and affect. Course Vital Signs Vital signs: Vital Signs Temperature 36.4 C L 05/01/25 10:37 Pulse Rate 75 05/01/25 10:37 Respiratory Rate 18 05/01/25 10:37 Blood Pressure 132/92 H 05/01/25 10:37 Pulse Oximetry 100 05/01/25 10:37 Oxygen Delivery Room Air 05/01/25 10:37 Temperature 36.4 C L 05/01/25 10:37 Pulse Rate 66 05/01/25 13:42 Respiratory Rate 14 05/01/25 13:42 Blood Pressure 105/73 05/01/25 13:42 Pulse Oximetry 100 05/01/25 13:42 Oxygen Delivery Room Air 05/01/25 10:37 Medical Decision Making MDM Narrative Medical decision making narrative: 35-year-old with syncopal episode today states that she had a headache and some nausea that she related to taking her iron and she vomited x1. Otherwise no other symptoms no recent illness or complaints. She states that since being here she does feel better but feels a little foggy. CBC-no leukocytosis hemoglobin 10.6, hematocrit 34.3 which is an improvement from previous labs CMP-sodium 136 creatinine 0.50 F-ycgmu-gursvdpi UA-positive ketones positive leuks positive rbc's positive white blood cells Urine -negative Chest x-ray-no acute cardiopulmonary finding Head CT-no acute intracranial finding Patient treated with saline, Zofran, Pepcid, Toradol her workup is essentially unremarkable outside of the new finding of the urinary tract infection Will reassess patient and update her finding of the UTI Patient re-evaluated and updated on her results, she states that she is feeling a lot better has not had any other new symptoms since being here and she will be started on Macrobid b.i.d. 1st dose given here for year, close primary care doctor follow-up work note for 2 days strict return precautions discussed patient denies any being further at this time. Medical Records Medical records reviewed: Yes I reviewed the external patient's medical records. Vital Signs Vital Signs: Vital Signs Temperature 36.4 C L 05/01/25 10:37 Pulse Rate 75 05/01/25 10:37 Respiratory Rate 18 05/01/25 10:37 Blood Pressure 132/92 H 05/01/25 10:37 Pulse Oximetry 100 05/01/25 10:37 Oxygen Delivery Room Air 05/01/25 10:37 Temperature 36.4 C L 05/01/25 10:37 Pulse Rate 66 05/01/25 13:42 Respiratory Rate 14 05/01/25 13:42 Blood Pressure 105/73 05/01/25 13:42 Pulse Oximetry 100 05/01/25 13:42 Oxygen Delivery Room Air 05/01/25 10:37 Vitals reviewed Lab Data Lab results reviewed: Yes I reviewed the patient's lab results. 05/01/25 10:48 05/01/25 10:48 Labs: Lab Results 05/01/25 05/01/25 05/01/25 Range/Units 10:48 11:45 12:04 WBC 5.2 (4.5-10.0) K/mm3 RBC 4.17 L (4.2-5.4) M/mm3 Hgb 10.6 L D (12.0-15.0) g/dL Hct 34.3 L (37.0-47.0) % MCV 82.3 (80-100) fl MCH 25.4 L (26-34) pg MCHC 30.9 L (32-36) g/dl RDW 14.3 (11.5-14.5) % Plt Count 297 (150-375) k/mm3 MPV 11.4 H (7.4-10.4) fl Immature Gran % (Auto) 0.4 (0-0.5) % Neut % (Auto) 49.9 (45.5-73.1) % Lymph % (Auto) 36.0 (18.3-44.2) % Gillespie % (Auto) 7.9 (2.6-8.5) % Eos % (Auto) 4.8 H (0-4.4) % Baso % (Auto) 1.0 (0.2-1.2) % Lymph # (Auto) 1.87 (0.9-3.2) K/mm3 Gillespie # (Auto) 0.4 (0.1-0.6) K/mm3 Eos # (Auto) 0.3 (0-0.3) K/mm3 Baso # (Auto) 0.1 (0.0-0.1) K/mm3 Abs Immat Gran (auto) 0.02 (0.00-0.031) K/mm3 Absolute Neuts (auto) 2.6 (1.3-6.7) K/mm3 Absolute Nucleated RBC 0.000 (0.0-0.012) K/mm3 Nucleated RBC % 0.0 (0.0-0.2) % D-Dimer < 0.27 (<0.48) ug/mL Sodium 136 L (137-145) mmol/L Potassium 3.8 (3.4-5.0) mmol/L Chloride 103 (98-107) mmol/L Carbon Dioxide 24 (22-30) mmol/L Anion Gap 9 (4-12) mmol/L BUN 8 (7-17) mg/dL Creatinine 0.50 L (0.7-1.0) mg/dL Estim Creat Clear Calc 115 ml/min Estimated GFR > 60 (59 - ) Glucose 94 (65-110) mg/dL Calcium 8.8 (8.4-10.2) mg/dL Total Bilirubin 0.5 (0.2-1.3) mg/dL AST 29 (14-36) U/L ALT 14 (6-35) U/L Alkaline Phosphatase 66 (38-126) U/L Total Protein 8.3 H (6.3-8.2) g/dL Albumin 4.5 (3.5-5.1) g/dL Urine Color Yellow (Yellow) Urine Appearance Clear (Clear) Urine pH 8.0 (5.0-9.0) Ur Specific [place] 1.024 (1.001-1.035) Urine Protein Trace (Negative) mg/dL Urine Glucose (UA) Negative (Negative) mg/dL Urine Ketones 1+ H (Negative) mg/dL Ur Blood (Man) Negative (Negative) Urine Nitrate Negative (Negative) Urine Bilirubin Negative (Negative) Urine Urobilinogen 1.0 (<2.0) mg/dL Leukocyte Esterase Rfl 1+ H (Negative) JANNIE/UL Urine RBC 3-5 H (0-2) /hpf Urine WBC 6-10 H (0-3) /hpf Ur Squamous Epith Cells Occasional (Few) /hpf Urine Bacteria None seen /hpf Urine Casts 0-2 POC Urine HCG, Qual Negative (Negative) Imaging Data Radiologist's impression: Impressions Chest X-Ray 05/01/25 11:04 IMPRESSION: 1. No acute cardiopulmonary findings. Chest X-Ray 05/01/25 11:31 Impression: No acute cardiopulmonary abnormality. Head CT 05/01/25 11:33 Impression: 1.No acute intracranial abnormality. Discharge Plan Discharge Clinical Impression: Urinary tract infection Qualifiers: Urinary tract infection type: acute cystitis Hematuria presence: with hematuria Qualified Code(s): N30.01 - Acute cystitis with hematuria Syncope Qualifiers: Syncope type: unspecified Qualified Code(s): R55 - Syncope and collapse Patient Disposition: Home Condition: Stable Instructions: Antibiotic Form, Urinary Tract Infection in Women (DC) Additional Instructions: Continue to take the Macrobid twice daily for 5 days, make sure you are staying hydrated drinking plenty of fluids, please follow-up with your primary care doctor next week to make sure improving. He should have any new worsening symptoms return to the emergency department Patient Language: Ecuadorean Prescriptions: New nitrofurantoin monohyd/m-cryst [Macrobid] 100 mg capsule 100 mg PO Q12H 5 Days Qty: 10 0RF Rx Instructions: must administer with a meal/food No Action amoxicillin 875 mg tablet 875 mg PO Q12H Qty: 20 0RF oseltamivir [Tamiflu] 75 mg capsule 75 mg PO Q12H 5 Days Qty: 10 0RF Follow-up/Referrals: Margarita,Lady Calixto MD [Primary Care Provider, Family Practice] Stand Alone Forms: Work/School Release IP Time of Disposition: 13:24
[2025-05-01] MEDS: NITROFURANTOIN MONOHYD MACROCR 100 MG CAP PO (13:38)
== END 2025-05-01 13:43 | disposition home or self-care (01) ==
PROVIDERS: Emergency Medicine; Emergency Provider Nurse Practitioner Family; PCP Family Medicine
DX: N30.01 Acute cystitis with hematuria (principal); R55 Syncope and collapse; D50.9 Iron deficiency anemia, unspecified; I45.10 Unspecified right bundle-branch block; R94.31 Abnormal electrocardiogram [ECG] [EKG]
CPT/HCPCS: 36415; 70450; 71045; 71046; 80053; 81001; 81025; 85025; 85380; 87086; 93005; 96361; 96374; 96375; 99284; A9270; J1885; J2405; J7030